=== PATIENT | male | born 1985 ===

== ENCOUNTER 2018-08-05 05:57 | Inpatient (IN) ==
[2018-08-05] MEDS ORDERED: Propofol 1000 mg/100 ml Inj 1,000 MG/100 ML BOTTLE ONE (05:59)
[2018-08-05] MEDS ORDERED: Lidocaine PF 1% Inj 30 ML Vial ONE (06:03)
[2018-08-05] MEDS ORDERED: fentaNYL Citrate Inj 100 MCG/2 ML Ampul ONE (06:16)
[2018-08-05 06:19] LABS: Baso # (Auto) 0.1 th/mm3 (0.0-0.2); Baso % (Auto) 0.5 % (0.0-2.0); Eos # (Auto) 0.2 th/mm3 (0.0-0.4); Eos % (Auto) 1.5 % (0.0-4.0); Hematocrit 35.8 % (39.0-51.0); Hemoglobin 11.8 gm/dL (13.0-17.0); Lymph # (Auto) 5.8 th/mm3 (1.0-4.8); Lymph % (Auto) 43.2 % (9.0-44.0); Mean Corpuscular HGB Conc 32.9 % (32.0-36.0); Mean Corpuscular Hemoglobin 30.4 pg (27.0-34.0); Mean Corpuscular Volume 92.4 fL (80.0-100.0); Mean Platelet Volume 7.7 fL (7.0-11.0); Mono # (Auto) 0.9 th/mm3 (0.0-0.9); Mono % (Auto) 6.5 % (0.0-8.0); Neut # (Auto) 6.4 th/mm3 (1.8-7.7); Neut % (Auto) 48.3 % (16.0-70.0); Platelet Count 416 th/mm3 (150-450); Red Blood Count 3.88 mil/mm3 (4.50-5.90); Red Cell Distribution Width 14.3 % (11.6-17.2); White Blood Count 13.3 th/mm3 (4.0-11.0)
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
[2018-08-05 06:37] LABS: Activated Partial Thrombo Time 25.6 sec (23.4-31.7); INR 1.1 Ratio; Prothrombin Time 11.2 sec (9.8-11.6)
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
[2018-08-05] MEDS ORDERED: Phenylephrine/NS 1000 MCG/10ML Syringe IV.PUSH ONE (06:48)
[2018-08-05] MEDS ORDERED: Normosol-R pH 7.4 Inj 4,000 ML IV.CONT ONE (06:48)
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
[2018-08-05 06:55] LABS: Eosinophils 2 % (0-4); Lymphocytes 43 % (9-44); Monocytes 7 % (0-8)
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
[2018-08-05 06:56] LABS: Platelet Estimate Normal (Normal); Platelet Morphology Normal (Normal)
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
[2018-08-05] MEDS ORDERED: fentaNYL Citrate Inj 250 MCG/5 ML Ampul ONE (07:09)
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
[2018-08-05 07:16] LABS: ABG Base Excess -7.1 mmol/L (-2-2); ABG PCO2 52 mmHg (38-42); ABG PO2 259 mmHG (61-120)
[2018-08-05 07:48] LABS: Baso % (Auto) 0.4 % (0.0-2.0); Eos # (Auto) 0.1 th/mm3 (0.0-0.4); Eos % (Auto) 0.6 % (0.0-4.0); Hematocrit 40.3 % (39.0-51.0); Hemoglobin 13.5 gm/dL (13.0-17.0); Lymph # (Auto) 1.8 th/mm3 (1.0-4.8); Lymph % (Auto) 18.9 % (9.0-44.0); Mean Corpuscular HGB Conc 33.4 % (32.0-36.0); Mean Corpuscular Hemoglobin 30.7 pg (27.0-34.0); Mean Platelet Volume 7.4 fL (7.0-11.0); Mono # (Auto) 0.5 th/mm3 (0.0-0.9); Neut # (Auto) 7.1 th/mm3 (1.8-7.7); Neut % (Auto) 75.1 % (16.0-70.0); Platelet Count 189 th/mm3 (150-450); Red Blood Count 4.38 mil/mm3 (4.50-5.90); Red Cell Distribution Width 14.2 % (11.6-17.2); White Blood Count 9.5 th/mm3 (4.0-11.0)
[2018-08-05] MEDS ORDERED: Thrombin Topical Soln 5,000 UNIT Vial TOPICAL ONE (07:54)
[2018-08-05 08:07] LABS: Activated Partial Thrombo Time 33.3 sec (23.4-31.7); INR 1.3 Ratio; Prothrombin Time 13.6 sec (9.8-11.6)
[2018-08-05] MEDS ORDERED: Diphtheria/Tetanus/Pertussis Vaccine Inj 0.5 ML Syringe IM ONE (08:15)
[2018-08-05] MEDS ORDERED: ceFAZolin 2 GM IV; once IV.SIG ONE (08:15)
[2018-08-05 08:28] LABS: Calcium 7.3 mg/dL (8.5-10.1); Carbon Dioxide 27.3 meq/L (21.0-32.0); Potassium 5.7 meq/L (3.5-5.1)
[2018-08-05 08:43] LABS: Calcium-Albumin Corrected 9.4 mg/dL (8.5-10.1); Total Protein 3.6 g/dL (6.4-8.2)
[2018-08-05] MEDS ORDERED: Calcium Chloride Inj 1 GM/10 ML Syringe ONE (08:45)
[2018-08-05] MEDS ORDERED: Sodium Bicarbonate 8.4% Inj 50 MEQ/50 ML Syringe ONE (08:45)
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
[2018-08-05] MEDS ORDERED: Potassium Chlor 40 mEq Premix 40 MEQ/100 ML PIGGYBACK IV.SIG PRN (09:06)
[2018-08-05] MEDS ORDERED: Potassium Chloride 25 MEQ Effervescent Tablet PO PRN (09:06)
[2018-08-05] MEDS ORDERED: Potassium Phosphate 500 MG Soluble Tablet PO PRN ×2 (09:06)
[2018-08-05] MEDS ORDERED: Sodium Phosphate Inj 30 MMOL in Sodium Chlor 0.9% Inj 250 ML IV.SIG PRN (09:06)
[2018-08-05] MEDS ORDERED: Magnesium Sulfate Inj 4 GM in Sodium Chlor 0.9% Inj 92 ML IV.SIG PRN (09:06)
[2018-08-05] MEDS ORDERED: Potassium Chlor 20 mEq Premix 20 MEQ/100 ML PIGGYBACK IV.SIG PRN ×2 (09:06)
[2018-08-05] MEDS ORDERED: Magnesium Sulfate Inj 2 GM in Sodium Chlor 0.9% Inj 96 ML IV.SIG PRN (09:06)
[2018-08-05] MEDS ORDERED: Potassium Phosphate Inj 30 MMOL in Sodium Chlor 0.9% Inj 250 ML IV.SIG PRN (09:06)
[2018-08-05] MEDS ORDERED: Magnesium Oxide 400 MG Tablet PO PRN (09:06)
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
[2018-08-05] MEDS ORDERED: Propofol 1000 mg/100 ml Inj 1,000 MG/100 ML BOTTLE IV.CONT PRN (09:13)
[2018-08-05] MEDS ORDERED: fentaNYL 10 mcg/mL Premix Drip 2,500 MCG/250 ML BAG IV.SIG PRN (09:13)
[2018-08-05] MEDS ORDERED: Propofol Inj 500 MG/50 ML Vial ONE (09:16)
[2018-08-05] MEDS: Pantoprazole Inj 40 MG Vial IV.PUSH SCH (10:00)
[2018-08-05] MEDS: fentaNYL 10 mcg/mL Premix Drip 2,500 MCG/250 ML BAG IV.SIG PRN ×2 (10:54→20:14)
[2018-08-05] MEDS: Multivitamin Inj 10 ML, Thiamine Inj 100 MG, Folic Acid Inj 1 MG in Sodium Chlor 0.9% I... IV.SIG SCH (10:55)
[2018-08-05] MEDS: Propofol 1000 mg/100 ml Inj 1,000 MG/100 ML BOTTLE IV.CONT PRN ×4 (10:55→21:04)
[2018-08-05] MEDS: Sod Chloride 0.9% Inj 1,000 ML IV.CONT SCH ×2 (10:56→17:33)
[2018-08-05 11:04] LABS: ABG Base Excess 3.6 mmol/L (-2-2); ABG PCO2 45 mmHg (38-42); ABG PO2 110 mmHg (61-120)
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
[2018-08-05 12:59] LABS: Baso % (Auto) 0.4 % (0.0-2.0); Eos % (Auto) 0.9 % (0.0-4.0); Hematocrit 44.9 % (39.0-51.0); Hemoglobin 15.6 gm/dL (13.0-17.0); Lymph # (Auto) 0.9 th/mm3 (1.0-4.8); Lymph % (Auto) 28.1 % (9.0-44.0); Mean Corpuscular HGB Conc 34.7 % (32.0-36.0); Mean Corpuscular Hemoglobin 31.3 pg (27.0-34.0); Mean Corpuscular Volume 90.3 fL (80.0-100.0); Mean Platelet Volume 7.8 fL (7.0-11.0); Mono # (Auto) 0.4 th/mm3 (0.0-0.9); Mono % (Auto) 13.8 % (0.0-8.0); Neut # (Auto) 1.8 th/mm3 (1.8-7.7); Neut % (Auto) 56.8 % (16.0-70.0); Platelet Count 182 th/mm3 (150-450); Red Blood Count 4.98 mil/mm3 (4.50-5.90); Red Cell Distribution Width 14.2 % (11.6-17.2); White Blood Count 3.2 th/mm3 (4.0-11.0)
[2018-08-05 13:10] LABS: Activated Partial Thrombo Time 27.8 sec (23.4-31.7); INR 1.1 Ratio; Prothrombin Time 11.5 sec (9.8-11.6)
[2018-08-05] MEDS: Oral Hygiene Kit OROPHARYNG SCH ×2 (13:12→17:33)
[2018-08-05 13:34] LABS: Albumin 2.7 g/dL (3.4-5.0); Calcium 7.1 mg/dL (8.5-10.1); Carbon Dioxide 31.3 meq/L (21.0-32.0); Potassium 3.6 meq/L (3.5-5.1); Total Protein 5.1 g/dL (6.4-8.2)
[2018-08-05] MEDS: ceFAZolin 2 GM Premix Inj 2 GM/50 ML PIGGYBACK IV.SIG SCH (14:28)
[2018-08-05] MEDS ORDERED: Sod Chloride 0.9% Inj 1,000 ML IV.CONT ONE (15:00)
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
[2018-08-05] MEDS: Sod Chloride 0.9% Inj 1,000 ML IV.SIG SCH ×2 (17:30→18:46)
[2018-08-05] MEDS: Piperacil/Tazo 3.375 GM Premix 50 ML IV.SIG SCH (17:34)
[2018-08-05 18:00] LABS: Hematocrit 46.9 % (39.0-51.0); Hemoglobin 16.8 gm/dL (13.0-17.0)
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
[2018-08-05] MEDS ORDERED: RASS Change Order OTHER ONE (19:00)
[2018-08-05] MEDS ORDERED: Sod Chloride 0.9% Inj 1,000 ML IV.SIG SCH (20:00)
[2018-08-05] MEDS ORDERED: Albumin Human 5% Inj 500 ML IV.SIG ONE (23:00)
[2018-08-05 23:19] LABS: Hemoglobin 15.6 gm/dL (13.0-17.0)
[2018-08-05] MEDS: Sodium Chloride 0.9% 2 ML Flush BID IV.FLUSH SCH (23:58)
[2018-08-06] MEDS: ceFAZolin 2 GM Premix Inj 2 GM/50 ML PIGGYBACK IV.SIG SCH ×2 (00:25→06:34)
[2018-08-06] MEDS: Piperacil/Tazo 3.375 GM Premix 50 ML IV.SIG SCH ×3 (00:25→15:25)
[2018-08-06] MEDS: Oral Hygiene Kit OROPHARYNG SCH ×4 (00:25→15:26)
[2018-08-06] MEDS: Chlorhexidine 0.12% Oral Kit 15 ML UDC OROPHARYNG SCH ×3 (00:26→20:14)
[2018-08-06] MEDS: Sod Chloride 0.9% Inj 1,000 ML IV.CONT SCH ×5 (00:27→18:19)
[2018-08-06] MEDS: Propofol 1000 mg/100 ml Inj 1,000 MG/100 ML BOTTLE IV.CONT PRN (01:48)
[2018-08-06 02:41] LABS: ABG Base Excess -2.8 mmol/L (-2-2); ABG PCO2 50 mmHg (38-42); ABG PO2 93 mmHg (61-120)
[2018-08-06] MEDS ORDERED: Albumin Human 5% Inj 500 ML IV.SIG ONE ×2 (03:00→04:00)
[2018-08-06 03:44] LABS: Baso % (Auto) 0.2 % (0.0-2.0); Eos # (Auto) 0.1 th/mm3 (0.0-0.4); Eos % (Auto) 0.8 % (0.0-4.0); Hematocrit 37.6 % (39.0-51.0); Hemoglobin 13.3 gm/dL (13.0-17.0); Lymph # (Auto) 1.2 th/mm3 (1.0-4.8); Lymph % (Auto) 13.9 % (9.0-44.0); Mean Corpuscular HGB Conc 35.3 % (32.0-36.0); Mean Corpuscular Hemoglobin 31.3 pg (27.0-34.0); Mean Corpuscular Volume 88.7 fL (80.0-100.0); Mean Platelet Volume 7.8 fL (7.0-11.0); Mono # (Auto) 1.1 th/mm3 (0.0-0.9); Mono % (Auto) 12.8 % (0.0-8.0); Neut # (Auto) 6.4 th/mm3 (1.8-7.7); Neut % (Auto) 72.3 % (16.0-70.0); Platelet Count 161 th/mm3 (150-450); Red Blood Count 4.23 mil/mm3 (4.50-5.90); Red Cell Distribution Width 14.7 % (11.6-17.2); White Blood Count 8.8 th/mm3 (4.0-11.0)
[2018-08-06] MEDS ORDERED: Chlorhexidine Gluconate 2% 1 Pack (2 Cloths) TOPICAL PRN (04:00)
[2018-08-06 04:10] LABS: Albumin 2.7 g/dL (3.4-5.0); Calcium 6.1 mg/dL (8.5-10.1); Carbon Dioxide 25.7 meq/L (21.0-32.0); Potassium 4.8 meq/L (3.5-5.1); Total Protein 4.5 g/dL (6.4-8.2)
--- NOTE | 2018-08-06 04:28 | XR ---
EXAM DATE: 08/06/2018 3:46 AM EST AGE/SEX: 89 years / Male INDICATIONS: Shortness of breath. CLINICAL DATA: This is the patient's subsequent encounter. Patient reports that signs and symptoms h ave been present for 2 days and indicates a pain score of Nonresponsive. MEDICAL/SURGICAL HISTORY: Non-responsive. . Bilateral chest tubes COMPARISON: [facility] – [place], CHEST 1V SINGLE AP, 08/05/2018. . FINDINGS: A single AP view of the chest demonstrates some improved aeration of both lungs. The remaining exam i s unchanged. Endotracheal tube tip is 4 cm from the erin. Nasogastric tube and bilateral thoracosto my tubes observed. A catheter overlies the left chest possibly relating to a subclavian central venou s access. Heart is normal in size. No effusions. CONCLUSION: Some improvement in the bilateral infiltrates. Electronically signed by: Harpreet Barros MD 08/06/2018 4:27 AM EST
[2018-08-06] MEDS ORDERED: Sod Chloride 0.9% Inj 1,000 ML IV.SIG SCH (04:30)
[2018-08-06 04:44] LABS: Eosinophils 1 % (0-4); Lymphocytes 13 % (9-44); Metamyelocytes 5 % (0-1); Monocytes 3 % (0-8); Platelet Estimate Normal (Normal); Platelet Morphology Normal (Normal); RBC Morphology Normal (Normal)
[2018-08-06] MEDS: fentaNYL 10 mcg/mL Premix Drip 2,500 MCG/250 ML BAG IV.SIG PRN ×2 (05:09→15:25)
[2018-08-06] MEDS: Chlorhexidine Gluconate 2% 1 Pack (2 Cloths) TOPICAL SCH (05:11)
[2018-08-06 06:33] LABS: ABG Base Excess -2.2 mmol/L (-2-2); ABG PCO2 42 mmHg (38-42); ABG PO2 86 mmHg (61-120)
[2018-08-06] MEDS: Midazolam 50 MG/50 ML Inj 50 MG/50 ML BAG IV.CONT PRN ×3 (06:35→21:27)
[2018-08-06] MEDS ORDERED: Diatrizoate Meglum/Diatrizoate Sod Liq 120 ML Bottle (for RAD diag) NG/OG ONE (08:00)
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
--- NOTE | 2018-08-06 08:42 | CT ---
EXAM DATE: 08/06/2018 8:33 AM EST AGE/SEX: 89 years / Male INDICATIONS: Trauma CLINICAL DATA: This is the patient's subsequent encounter. Patient reports that signs and symptoms h ave been present for 1 day and indicates a pain score of Nonresponsive. MEDICAL/SURGICAL HISTORY: Non-responsive. Non-responsive. RADIATION DOSE: 8.12 CTDI (mGy) COMPARISON: [facility] [place], CHEST 1V SINGLE AP, 08/06/2018. [facility] [place], SWALLOW W GASTROGRAFIN, 08/06/2018. [facility] [place], CT CHEST W CONTRAST, 08/05/2018. . TECHNIQUE: Multiple contiguous axial images were obtained through the chest during bolus infusion of 70ML ml Omnipaque 350 (iohexol) nonionic water-soluble contrast as a single exam dose. Images wer e obtained in suspended respiration using multiple row detector helical technique. Using automated e xposure control and adjustment of the mA and/or kV according to patient size, radiation dose was kept as low as reasonably achievable to obtain optimal diagnostic quality images. DICOM format image chente a is available electronically for review and comparison. FINDINGS: Endotracheal tube, and NG tube are noted, the NG tube tip terminates in the body the stomach. There a re bilateral chest tubes present. There are bilateral hydropneumothoraces again seen, the air compone nt decreased bilaterally since the previous study. Fluid component is decreased on the right and incr eased on the left. There is consolidation of both lower lobes with air bronchogram formation as well as lingular consolidation adjacent to the chest tube. There is some high attenuation fluid bilaterall y within the effusions characteristic of hemorrhage. The areas of high density and increased from the previous study. There is a laceration seen through the liver parenchyma as noted previously. A small amount of air is present at this level. The aorta and great vessels are intact. A left subclavian li ne is present and the tip terminates in the left brachiocephalic vein. There is contrast from Gastrog rafin swallow seen within the stomach and the esophagus. There is contrast in the enteric tube. Revie w of bone windows demonstrate right fifth rib fracture again seen. CONCLUSION: 1. Bilateral hydropneumothoraces, with increased fluid on the left, decreased fluid on the right, an d bilateral decreased air component. 2. Liver laceration. 3. Scattered areas of subcutaneous air are again noted. 4. Contrast seen within the NG tube, stomach and esophagus. An obvious extraluminal contrast collect ion is not seen at this time. 5. There is bilateral pulmonary consolidation. Electronically signed by: Woody Bernal MD 08/06/2018 8:41 AM EST
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
[2018-08-06] MEDS: Sodium Chloride 0.9% 2 ML Flush BID IV.FLUSH SCH ×2 (09:33→20:14)
[2018-08-06] MEDS: Multivitamin Inj 10 ML, Thiamine Inj 100 MG, Folic Acid Inj 1 MG in Sodium Chlor 0.9% I... IV.SIG SCH (09:33)
[2018-08-06] MEDS: Pantoprazole Inj 40 MG Vial IV.PUSH SCH (09:34)
[2018-08-07] MEDS: Piperacil/Tazo 3.375 GM Premix 50 ML IV.SIG SCH ×4 (01:11→23:18)
[2018-08-07] MEDS: Oral Hygiene Kit OROPHARYNG SCH ×4 (01:11→15:54)
[2018-08-07] MEDS: fentaNYL 10 mcg/mL Premix Drip 2,500 MCG/250 ML BAG IV.SIG PRN ×3 (01:31→23:17)
[2018-08-07 04:19] LABS: Baso # (Auto) 0.1 th/mm3 (0.0-0.2); Baso % (Auto) 0.5 % (0.0-2.0); Eos # (Auto) 0.2 th/mm3 (0.0-0.4); Eos % (Auto) 1.1 % (0.0-4.0); Hematocrit 40.1 % (39.0-51.0); Hemoglobin 13.6 gm/dL (13.0-17.0); Lymph # (Auto) 1.2 th/mm3 (1.0-4.8); Lymph % (Auto) 8.1 % (9.0-44.0); Mean Corpuscular Hemoglobin 30.7 pg (27.0-34.0); Mean Corpuscular Volume 90.2 fL (80.0-100.0); Mean Platelet Volume 7.5 fL (7.0-11.0); Mono # (Auto) 1.4 th/mm3 (0.0-0.9); Mono % (Auto) 9.6 % (0.0-8.0); Neut # (Auto) 11.8 th/mm3 (1.8-7.7); Neut % (Auto) 80.7 % (16.0-70.0); Platelet Count 182 th/mm3 (150-450); Red Blood Count 4.45 mil/mm3 (4.50-5.90); Red Cell Distribution Width 14.7 % (11.6-17.2); White Blood Count 14.6 th/mm3 (4.0-11.0)
[2018-08-07] MEDS: Sod Chloride 0.9% Inj 1,000 ML IV.CONT SCH ×2 (05:02→15:54)
[2018-08-07] MEDS: Chlorhexidine Gluconate 2% 1 Pack (2 Cloths) TOPICAL SCH (05:02)
[2018-08-07 05:04] LABS: Albumin 2.2 g/dL (3.4-5.0); Calcium 7.3 mg/dL (8.5-10.1); Carbon Dioxide 24.4 meq/L (21.0-32.0); Total Protein 4.9 g/dL (6.4-8.2)
[2018-08-07] MEDS: Midazolam 50 MG/50 ML Inj 50 MG/50 ML BAG IV.CONT PRN ×3 (05:25→18:54)
[2018-08-07 05:56] LABS: ABG PCO2 38 mmHg (38-42); ABG PO2 104 mmHg (61-120)
--- NOTE | 2018-08-07 06:47 | XR ---
EXAM DATE: 08/07/2018 6:42 AM EST AGE/SEX: 89 years / Male INDICATIONS: Respiratory distress. CLINICAL DATA: This is the patient's subsequent encounter. Patient reports that signs and symptoms h ave been present for 2 days and indicates a pain score of Nonresponsive. MEDICAL/SURGICAL HISTORY: . Unobtainable. Chest tube, left. Chest tube, right. COMPARISON: [facility] [place] 1V SINGLE AP, 08/06/2018. . FINDINGS: Single AP view of the chest. Endotracheal tube, nasogastric tube, bilateral chest tubes, and left sub clavian central venous catheter remain in place. Bilateral pleural effusions with hazy opacity bilate rally. Slightly increased on the right. No change in the left. Left lower lobe atelectasis versus con solidation also again seen. No evidence of pneumothorax. CONCLUSION: Slight increase in right pleural effusion. No other significant interval change. Electronically signed by: Rajesh Verdugo MD 08/07/2018 6:46 AM EST
[2018-08-07] MEDS: Chlorhexidine 0.12% Oral Kit 15 ML UDC OROPHARYNG SCH ×2 (07:28→20:47)
[2018-08-07] MEDS: Multivitamin Inj 10 ML, Thiamine Inj 100 MG, Folic Acid Inj 1 MG in Sodium Chlor 0.9% I... IV.SIG SCH (08:02)
[2018-08-07] MEDS: Pantoprazole Inj 40 MG Vial IV.PUSH SCH (08:02)
[2018-08-07] MEDS: Sodium Chloride 0.9% 2 ML Flush BID IV.FLUSH SCH ×2 (08:02→20:47)
[2018-08-07 08:27] LABS: Dohle Bodies Present; Lymphocytes 4 % (9-44); Metamyelocytes 3 % (0-1); Monocytes 4 % (0-8)
[2018-08-07 08:28] LABS: Platelet Estimate Normal (Normal); Platelet Morphology Normal (Normal); Toxic Granulation 1+; Toxic Vacuolation Present
[2018-08-07] MEDS ORDERED: fentaNYL Citrate Inj 100 MCG/2 ML Ampul ONE (13:06)
[2018-08-07] MEDS ORDERED: Famotidine PF Inj 20 MG/2 ML Vial ONE (13:06)
--- NOTE | 2018-08-07 18:01 | XR ---
EXAM DATE: 08/07/2018 5:54 PM EST AGE/SEX: 89 years / Male INDICATIONS: Evaluate ET tube placement. CLINICAL DATA: This is the patient's subsequent encounter. Patient reports that signs and symptoms h ave been present for 2 days and indicates a pain score of Nonresponsive. MEDICAL/SURGICAL HISTORY: Non-responsive. . Chest tube, left. Chest tube, right. [place] [facility] [place]. . FINDINGS: A single AP view of the chest has been performed. Endotracheal tube remains in place with distal tip above the erin. Partially imaged nasoenteric tube, bilateral chest tubes, and left subclavian centr al venous catheter remain in place. Increased hazy opacification of the left hemithorax. Persistent h azy opacification of the right lung base. The cardiomediastinal contours are unremarkable with dense opacification of the cardiac silhouette. Osseous structures are intact. CONCLUSION: 1. Endotracheal tube in stable position above the erin. 2. Nasoenteric tube, bilateral chest tubes, and left subclavian central venous catheter remain in pl [place]. 3. Increased hazy opacification of the left hemithorax, and persistent hazy opacification of the rig ht lung base. 4. Stable dense opacification of the cardiac silhouette. Electronically signed by: Theresa Dalal MD 08/07/2018 6:00 PM EST
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
[2018-08-07] MEDS: Enoxaparin Inj 30 MG/0.3 ML Syringe SQ SCH (20:45)
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
[2018-08-08] MEDS: Oral Hygiene Kit OROPHARYNG SCH ×4 (00:51→15:32)
[2018-08-08] MEDS: Chlorhexidine Gluconate 2% 1 Pack (2 Cloths) TOPICAL SCH (03:03)
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
[2018-08-08 04:21] LABS: Baso % (Auto) 0.3 % (0.0-2.0); Eos # (Auto) 0.1 th/mm3 (0.0-0.4); Eos % (Auto) 0.7 % (0.0-4.0); Hematocrit 35.6 % (39.0-51.0); Hemoglobin 12.3 gm/dL (13.0-17.0); Lymph # (Auto) 0.7 th/mm3 (1.0-4.8); Lymph % (Auto) 3.7 % (9.0-44.0); Mean Corpuscular HGB Conc 34.6 % (32.0-36.0); Mean Corpuscular Hemoglobin 30.7 pg (27.0-34.0); Mean Corpuscular Volume 88.8 fL (80.0-100.0); Mean Platelet Volume 7.6 fL (7.0-11.0); Mono # (Auto) 1.2 th/mm3 (0.0-0.9); Mono % (Auto) 6.3 % (0.0-8.0); Neut # (Auto) 16.7 th/mm3 (1.8-7.7); Platelet Count 206 th/mm3 (150-450); Red Blood Count 4.01 mil/mm3 (4.50-5.90); Red Cell Distribution Width 14.7 % (11.6-17.2); White Blood Count 18.8 th/mm3 (4.0-11.0)
[2018-08-08 04:39] LABS: Albumin 1.8 g/dL (3.4-5.0); Calcium 7.4 mg/dL (8.5-10.1); Carbon Dioxide 23.4 meq/L (21.0-32.0); Potassium 3.5 meq/L (3.5-5.1); Total Protein 4.9 g/dL (6.4-8.2)
[2018-08-08 06:03] LABS: ABG Base Excess -0.6 mmol/L (-2-2); ABG PCO2 46 mmHg (38-42); ABG PO2 66 mmHg (61-120)
[2018-08-08] MEDS: Chlorhexidine 0.12% Oral Kit 15 ML UDC OROPHARYNG SCH ×2 (08:02→20:53)
[2018-08-08] MEDS: Pantoprazole Inj 40 MG Vial IV.PUSH SCH (08:03)
[2018-08-08] MEDS: Enoxaparin Inj 30 MG/0.3 ML Syringe SQ SCH ×2 (08:03→20:53)
[2018-08-08] MEDS: Piperacil/Tazo 3.375 GM Premix 50 ML IV.SIG SCH (08:03)
[2018-08-08] MEDS: Sodium Chloride 0.9% 2 ML Flush BID IV.FLUSH SCH ×2 (10:16→20:53)
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
[2018-08-08] MEDS: Propofol 1000 mg/100 ml Inj 1,000 MG/100 ML BOTTLE IV.CONT PRN (15:38)
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
[2018-08-08] MEDS: fentaNYL 10 mcg/mL Premix Drip 2,500 MCG/250 ML BAG IV.SIG PRN (21:22)
[2018-08-09] MEDS: Oral Hygiene Kit OROPHARYNG SCH ×5 (01:12→23:51)
[2018-08-09] MEDS: Propofol 1000 mg/100 ml Inj 1,000 MG/100 ML BOTTLE IV.CONT PRN ×5 (03:39→23:50)
[2018-08-09] MEDS: Chlorhexidine Gluconate 2% 1 Pack (2 Cloths) TOPICAL SCH (03:41)
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
[2018-08-09 04:56] LABS: Baso # (Auto) 0.1 th/mm3 (0.0-0.2); Baso % (Auto) 0.3 % (0.0-2.0); Eos # (Auto) 0.1 th/mm3 (0.0-0.4); Eos % (Auto) 0.6 % (0.0-4.0); Hematocrit 34.7 % (39.0-51.0); Hemoglobin 11.6 gm/dL (13.0-17.0); Lymph % (Auto) 4.7 % (9.0-44.0); Mean Corpuscular HGB Conc 33.5 % (32.0-36.0); Mean Corpuscular Hemoglobin 30.5 pg (27.0-34.0); Mean Corpuscular Volume 91.1 fL (80.0-100.0); Mean Platelet Volume 7.3 fL (7.0-11.0); Mono # (Auto) 1.6 th/mm3 (0.0-0.9); Mono % (Auto) 7.7 % (0.0-8.0); Neut % (Auto) 86.7 % (16.0-70.0); Platelet Count 218 th/mm3 (150-450); Red Cell Distribution Width 14.9 % (11.6-17.2); White Blood Count 20.8 th/mm3 (4.0-11.0)
[2018-08-09 05:22] LABS: Anion Gap 9 meq/L (5-15); Blood Urea Nitrogen 17 mg/dL (7-18); Calcium 7.9 mg/dL (8.5-10.1); Carbon Dioxide 26.5 meq/L (21.0-32.0); Chloride 112 meq/L (98-107); Glomerular Filtration Rate Greater Than 89 mL/min (>89); Glucose,Random 96 mg/dL (74-106); Potassium 3.5 meq/L (3.5-5.1); Sodium 147 meq/L (136-145)
[2018-08-09 05:47] LABS: ABG Base Excess 2.4 mmol/L (-2-2); ABG PCO2 46 mmHg (38-42); ABG PO2 128 mmHg (61-120)
[2018-08-09 08:18] LABS: Eosinophils 2 % (0-4); Lymphocytes 3 % (9-44); Monocytes 8 % (0-8); Plasma Cells 1 % (0-0)
[2018-08-09 08:19] LABS: Dimorphic RBC Present; Dohle Bodies Present; Platelet Estimate Normal (Normal); Platelet Morphology Normal (Normal); Toxic Granulation 1+
[2018-08-09] MEDS: Pantoprazole Inj 40 MG Vial IV.PUSH SCH (08:46)
[2018-08-09] MEDS: Sodium Chloride 0.9% 2 ML Flush BID IV.FLUSH SCH ×2 (08:47→20:00)
[2018-08-09] MEDS: Enoxaparin Inj 30 MG/0.3 ML Syringe SQ SCH ×2 (08:47→20:00)
[2018-08-09] MEDS: Chlorhexidine 0.12% Oral Kit 15 ML UDC OROPHARYNG SCH ×2 (08:47→19:52)
[2018-08-09] MEDS: Sod Chloride 0.9% Inj 1,000 ML IV.CONT SCH (09:30)
[2018-08-09] MEDS: fentaNYL 10 mcg/mL Premix Drip 2,500 MCG/250 ML BAG IV.SIG PRN (14:55)
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
[2018-08-09] MEDS ORDERED: ceFAZolin 1 GM Premix Inj 2 GM/100 ML PIGGYBACK IV.SIG ONE (17:10)
[2018-08-09] MEDS ORDERED: Normosol-R pH 7.4 Inj 1,000 ML IV.CONT ONE (17:11)
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
--- NOTE | 2018-08-09 19:38 | XR ---
EXAM DATE: 08/09/2018 7:34 PM EST AGE/SEX: 89 years / Male INDICATIONS: Post thoracoscopy. CLINICAL DATA: This is the patient's initial encounter. Patient reports that signs and symptoms have been present for 2 days and indicates a pain score of Nonresponsive. MEDICAL/SURGICAL HISTORY: Non-responsive. Non-responsive. COMPARISON: [facility] – [place], CHEST 1V SINGLE AP, 08/09/2018. . FINDINGS: A single AP view of the chest demonstrates bibasilar densities. Small lateral left pneumothorax measu res 6 mm of pleural separation. Bilateral chest tubes. Heart normal in size. Endotracheal tube and na sogastric tube unchanged. Tiny right apical pneumothorax. The cardiomediastinal contours are unremarkable. Osseous structures are intact. CONCLUSION: 1. Small bilateral pneumothoraces slightly larger on the left. 2. Bibasilar densities. Electronically signed by: Nilson Dunbar MD 08/09/2018 7:37 PM EST
--- NOTE | 2018-08-09 21:19 | MP ---
cc: Ahsan Fleming MD DATE OF OPERATION: 08/09/2018 PREOPERATIVE DIAGNOSIS: Respiratory failure, retained left hemothorax. POSTOPERATIVE DIAGNOSIS: Respiratory failure, retained left hemothorax. PROCEDURE PERFORMED: Left thoracoscopy, evacuation of hemothorax. SURGEON: Ahsan Fleming MD. ANESTHESIA: General. ESTIMATED BLOOD LOSS: 10 mL. INDICATIONS FOR PROCEDURE: The patient was prepped and draped in the usual fashion in the left decubitus position. The old chest tube is removed. The 6th intercostal space was chosen in mid axillary line. Small incisions made with a 15 blade, deepened down with cautery and then over the 7th rib, the soft trocar is inserted. Lung is deflated and then a camera was inserted. The chest is visualized. The lung appears to be clean and well aerated. The posterior sulcus is filled with old clotted blood and over the diaphragm, this is even thicker, sort of gelatinous, yellowish brown material. The second counter incision was made in the fifth intercostal space posterior axillary line and suction device inserted through this. Old semi-liquid material was suctioned off and then the rest of it is peeled off from the pleura from parietal and visceral pleura, as well over the surface of the diaphragm and removed with forceps and various other instruments that would fit. Once everything is clean, the area was irrigated with saline. At 36-Irish chest tube was placed in the posterior sulcus, sutured with 2-0 silk. The remaining incision closed with 2-0 Vicryl and 4-0 Monocryl. Chest x-ray obtained. The patient taken out of the operating room in stable condition. MD JESSICA Jennings/em , 07:59 PM , 08:05 PM
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
[2018-08-10] MEDS: Chlorhexidine Gluconate 2% 1 Pack (2 Cloths) TOPICAL SCH (04:24)
[2018-08-10] MEDS: Oral Hygiene Kit OROPHARYNG SCH ×3 (04:25→17:29)
[2018-08-10 04:28] LABS: Baso # (Auto) 0.1 th/mm3 (0.0-0.2); Baso % (Auto) 0.5 % (0.0-2.0); Eos # (Auto) 0.2 th/mm3 (0.0-0.4); Eos % (Auto) 1.5 % (0.0-4.0); Hematocrit 35.1 % (39.0-51.0); Hemoglobin 11.5 gm/dL (13.0-17.0); Mean Corpuscular HGB Conc 32.7 % (32.0-36.0); Mean Corpuscular Hemoglobin 29.9 pg (27.0-34.0); Mean Corpuscular Volume 91.5 fL (80.0-100.0); Mean Platelet Volume 7.3 fL (7.0-11.0); Mono # (Auto) 1.7 th/mm3 (0.0-0.9); Mono % (Auto) 10.3 % (0.0-8.0); Neut # (Auto) 13.1 th/mm3 (1.8-7.7); Neut % (Auto) 81.7 % (16.0-70.0); Platelet Count 244 th/mm3 (150-450); Red Blood Count 3.84 mil/mm3 (4.50-5.90); Red Cell Distribution Width 15.1 % (11.6-17.2)
[2018-08-10 05:08] LABS: Anion Gap 10 meq/L (5-15); Blood Urea Nitrogen 15 mg/dL (7-18); Calcium 7.7 mg/dL (8.5-10.1); Carbon Dioxide 28.3 meq/L (21.0-32.0); Chloride 112 meq/L (98-107); Glomerular Filtration Rate Greater Than 89 mL/min (>89); Glucose,Random 89 mg/dL (74-106); Potassium 3.2 meq/L (3.5-5.1); Sodium 150 meq/L (136-145)
[2018-08-10] MEDS: fentaNYL 10 mcg/mL Premix Drip 2,500 MCG/250 ML BAG IV.SIG PRN ×2 (05:31→17:35)
[2018-08-10] MEDS: Propofol 1000 mg/100 ml Inj 1,000 MG/100 ML BOTTLE IV.CONT PRN ×4 (05:32→19:46)
[2018-08-10 05:34] LABS: ABG Base Excess 1.9 mmol/L (-2-2); ABG PCO2 39 mmHg (38-42); ABG PO2 78 mmHg (61-120)
[2018-08-10 07:06] LABS: Lymphocytes 2 % (9-44); Metamyelocytes 1 % (0-1); Monocytes 10 % (0-8)
[2018-08-10 07:07] LABS: Platelet Estimate Normal (Normal); Platelet Morphology Normal (Normal); RBC Morphology Normal (Normal)
[2018-08-10] MEDS: Sod Chloride 0.9% Inj 1,000 ML IV.CONT SCH (07:35)
[2018-08-10] MEDS: Potassium Chlor 40 mEq Premix 40 MEQ/100 ML PIGGYBACK IV.SIG PRN ×2 (07:46→17:28)
[2018-08-10] MEDS: Pantoprazole Inj 40 MG Vial IV.PUSH SCH (08:07)
[2018-08-10] MEDS: Enoxaparin Inj 30 MG/0.3 ML Syringe SQ SCH ×2 (08:08→20:56)
[2018-08-10] MEDS: Sodium Chloride 0.9% 2 ML Flush BID IV.FLUSH SCH ×2 (08:08→20:56)
[2018-08-10] MEDS: Chlorhexidine 0.12% Oral Kit 15 ML UDC OROPHARYNG SCH ×2 (08:08→20:56)
[2018-08-10] MEDS ORDERED: Dexmedetomidine Inj 200 MCG in Sodium Chlor 0.9% Inj 48 ML IV.CONT PRN (09:39)
[2018-08-10] MEDS ORDERED: Propofol 1000 mg/100 ml Inj 1,000 MG/100 ML BOTTLE ONE (10:00)
[2018-08-10] MEDS ORDERED: Etomidate Inj 20 MG/10 ML Ampul IV.PUSH ONE ×2 (10:29→11:22)
[2018-08-10] MEDS: Metoprolol Inj 5 MG/5 ML Vial IV.PUSH SCH ×3 (11:22→21:11)
--- NOTE | 2018-08-10 11:26 | P.PCN ---
Date of procedure: 08/10/18 Pre-op diagnosis: Acute hypoxemic respiratory failure Post-op diagnosis: same Procedure: Endotracheal intubation Rapid Sequence Intubation was conducted. The patient received 20 mg etomidate IV , 10 mg of Versed IV, rocuronium 50 mg IV. Cricoid pressure was maintained from time induction agent was given to time of cuff balloon inflation. Moderate amount of secretions were pooling in the oropharynx, which was suctioned out. Using a direct laryngoscope MAC 4 blade a grade 2 view was obtained, there was significant amount of edema of the glottic opening at least partially obscuring the airway opening. I was not able to visualize the vocal cords because of this. An 8 0 ET tube was initially attempted which slipped into the esophagus. This was pulled out and patient was intubated with a 7.0 ET tube. The stylet was removed and cuff balloon was inflated. Appropriate endotracheal tube position was confirmed by direct visualization of vocal cord passage, fogging of the tube, CO2 colometric indicator and symmetric breath sounds. The tube was secured at 24 cm at the lips. Postintubation chest x-ray is pending at this time Edema of glottic opening causing difficult airway. Trauma service to start IV Decadron Anesthesia: YESI Surgeon: Logan Apodaca Estimated blood loss (mL): 0 Pathology: other Condition: critical Disposition: ICU (sputum culture)
--- NOTE | 2018-08-10 11:47 | XR ---
EXAM DATE: 08/10/2018 11:41 AM EST AGE/SEX: 89 years / Male INDICATIONS: Patient reintubated. CLINICAL DATA: This is the patient's subsequent encounter. Patient reports that signs and symptoms h ave been present for 3 days and indicates a pain score of Nonresponsive. MEDICAL/SURGICAL HISTORY: Non-responsive. Non-responsive. [place] [facility] [place]. . FINDINGS: There is a persistent left-sided pneumothorax measuring 1 cm laterally. Bilateral chest tubes remain unchanged in positions. The endotracheal tube has its tip 3 cm above the erin. A nasogastric tube h as tip below diaphragm. Hazy opacities are again noted bilaterally and are stable. The heart is stabl e. CONCLUSION: 1. Stable hazy opacities bilaterally. 2. Persistent left-sided pneumothorax measuring 1 cm laterally 3. Multiple tubes are stable. Electronically signed by: Landon Bennett MD 08/10/2018 11:46 AM EST
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
[2018-08-11] MEDS: Propofol 1000 mg/100 ml Inj 1,000 MG/100 ML BOTTLE IV.CONT PRN ×6 (00:15→22:09)
[2018-08-11] MEDS: Oral Hygiene Kit OROPHARYNG SCH ×4 (00:16→17:46)
[2018-08-11] MEDS: Potassium Chlor 40 mEq Premix 40 MEQ/100 ML PIGGYBACK IV.SIG PRN ×2 (02:00→05:13)
[2018-08-11] MEDS: Metoprolol Inj 5 MG/5 ML Vial IV.PUSH SCH ×4 (04:32→22:09)
[2018-08-11] MEDS: fentaNYL 10 mcg/mL Premix Drip 2,500 MCG/250 ML BAG IV.SIG PRN ×2 (05:12→17:51)
[2018-08-11 05:25] LABS: ABG Base Excess 3.6 mmol/L (-2-2); ABG PCO2 39 mmHg (38-42); ABG PO2 62 mmHg (61-120)
[2018-08-11 05:49] LABS: Baso % (Auto) 0.3 % (0.0-2.0); Eos % (Auto) 0.1 % (0.0-4.0); Hematocrit 32.4 % (39.0-51.0); Hemoglobin 11.1 gm/dL (13.0-17.0); Lymph % (Auto) 6.1 % (9.0-44.0); Mean Corpuscular HGB Conc 34.2 % (32.0-36.0); Mean Corpuscular Hemoglobin 30.9 pg (27.0-34.0); Mean Corpuscular Volume 90.3 fL (80.0-100.0); Mean Platelet Volume 7.9 fL (7.0-11.0); Mono # (Auto) 1.1 th/mm3 (0.0-0.9); Mono % (Auto) 6.5 % (0.0-8.0); Platelet Count 303 th/mm3 (150-450); Red Blood Count 3.59 mil/mm3 (4.50-5.90); Red Cell Distribution Width 14.8 % (11.6-17.2); White Blood Count 17.2 th/mm3 (4.0-11.0)
[2018-08-11 06:25] LABS: Anion Gap 5 meq/L (5-15); Blood Urea Nitrogen 20 mg/dL (7-18); Calcium 7.8 mg/dL (8.5-10.1); Carbon Dioxide 28.1 meq/L (21.0-32.0); Chloride 116 meq/L (98-107); Glomerular Filtration Rate Greater Than 89 mL/min (>89); Glucose,Random 146 mg/dL (74-106); Potassium 4.2 meq/L (3.5-5.1); Sodium 149 meq/L (136-145)
[2018-08-11] MEDS: Sod Chloride 0.9% Inj 1,000 ML IV.CONT SCH (07:10)
[2018-08-11] MEDS: Enoxaparin Inj 30 MG/0.3 ML Syringe SQ SCH ×2 (08:35→21:32)
[2018-08-11] MEDS: Chlorhexidine 0.12% Oral Kit 15 ML UDC OROPHARYNG SCH ×2 (08:36→21:32)
[2018-08-11] MEDS: Pantoprazole Inj 40 MG Vial IV.PUSH SCH (08:36)
[2018-08-11] MEDS: Sodium Chloride 0.9% 2 ML Flush BID IV.FLUSH SCH ×2 (08:37→21:32)
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
[2018-08-11] MEDS: QUEtiapine 25 MG Tablet PO SCH ×2 (12:34→17:46)
[2018-08-11] MEDS ORDERED: QUEtiapine 100 MG Tablet PO SCH (21:00)
[2018-08-12] MEDS: Oral Hygiene Kit OROPHARYNG SCH ×5 (00:20→23:55)
[2018-08-12] MEDS: Propofol 1000 mg/100 ml Inj 1,000 MG/100 ML BOTTLE IV.CONT PRN ×5 (01:59→19:41)
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
[2018-08-12 04:39] LABS: Baso # (Auto) 0.1 th/mm3 (0.0-0.2); Baso % (Auto) 0.3 % (0.0-2.0); Hematocrit 32.1 % (39.0-51.0); Hemoglobin 10.6 gm/dL (13.0-17.0); Lymph # (Auto) 1.1 th/mm3 (1.0-4.8); Mean Corpuscular HGB Conc 32.9 % (32.0-36.0); Mean Corpuscular Hemoglobin 30.2 pg (27.0-34.0); Mean Corpuscular Volume 91.8 fL (80.0-100.0); Mono # (Auto) 1.2 th/mm3 (0.0-0.9); Mono % (Auto) 5.6 % (0.0-8.0); Neut # (Auto) 19.3 th/mm3 (1.8-7.7); Neut % (Auto) 89.1 % (16.0-70.0); Platelet Count 384 th/mm3 (150-450); Red Cell Distribution Width 14.7 % (11.6-17.2); White Blood Count 21.6 th/mm3 (4.0-11.0)
[2018-08-12 05:02] LABS: Anion Gap 6 meq/L (5-15); Blood Urea Nitrogen 26 mg/dL (7-18); Calcium 7.9 mg/dL (8.5-10.1); Carbon Dioxide 28.8 meq/L (21.0-32.0); Chloride 115 meq/L (98-107); Glomerular Filtration Rate Greater Than 89 mL/min (>89); Glucose,Random 161 mg/dL (74-106); Sodium 150 meq/L (136-145)
[2018-08-12] MEDS: fentaNYL 10 mcg/mL Premix Drip 2,500 MCG/250 ML BAG IV.SIG PRN ×2 (05:18→16:36)
[2018-08-12] MEDS: Metoprolol Inj 5 MG/5 ML Vial IV.PUSH SCH ×4 (05:18→21:13)
[2018-08-12 06:07] LABS: ABG Base Excess 3.4 mmol/L (-2-2); ABG PCO2 37 mmHg (38-42); ABG PO2 103 mmHg (61-120)
[2018-08-12] MEDS: QUEtiapine 25 MG Tablet PO SCH ×2 (06:43→14:48)
[2018-08-12] MEDS: Pantoprazole Inj 40 MG Vial IV.PUSH SCH (08:44)
[2018-08-12] MEDS: Enoxaparin Inj 30 MG/0.3 ML Syringe SQ SCH ×2 (08:44→20:01)
[2018-08-12] MEDS: Sodium Chloride 0.9% 2 ML Flush BID IV.FLUSH SCH ×2 (08:45→20:16)
[2018-08-12] MEDS: Chlorhexidine 0.12% Oral Kit 15 ML UDC OROPHARYNG SCH ×2 (08:45→20:16)
[2018-08-12 08:47] LABS: Blast Cells 1 % (0-0); Lymphocytes 4 % (9-44); Monocytes 4 % (0-8); Platelet Estimate Normal (Normal); Platelet Morphology Normal (Normal)
[2018-08-12] MEDS: QUEtiapine 100 MG Tablet PO SCH (20:15)
[2018-08-12] MEDS ORDERED: Midazolam Inj 5 MG/ML 1 ML Vial IV.PUSH ONE (20:45)
[2018-08-12] MEDS ORDERED: Midazolam Inj 5 MG/ML 1 ML Vial ONE (20:53)
[2018-08-13] MEDS: Propofol 1000 mg/100 ml Inj 1,000 MG/100 ML BOTTLE IV.CONT PRN (00:52)
[2018-08-13] MEDS: fentaNYL 10 mcg/mL Premix Drip 2,500 MCG/250 ML BAG IV.SIG PRN ×2 (01:54→12:52)
[2018-08-13] MEDS: Oral Hygiene Kit OROPHARYNG SCH ×3 (06:10→15:54)
[2018-08-13] MEDS: Metoprolol Inj 5 MG/5 ML Vial IV.PUSH SCH ×4 (06:10→21:34)
[2018-08-13 06:13] LABS: Baso % (Auto) 0.1 % (0.0-2.0); Hemoglobin 10.9 gm/dL (13.0-17.0); Lymph # (Auto) 1.5 th/mm3 (1.0-4.8); Lymph % (Auto) 6.6 % (9.0-44.0); Mean Corpuscular HGB Conc 33.2 % (32.0-36.0); Mean Corpuscular Hemoglobin 30.5 pg (27.0-34.0); Mean Platelet Volume 8.7 fL (7.0-11.0); Mono # (Auto) 0.7 th/mm3 (0.0-0.9); Mono % (Auto) 3.3 % (0.0-8.0); Neut # (Auto) 20.2 th/mm3 (1.8-7.7); Platelet Count 469 th/mm3 (150-450); Red Blood Count 3.58 mil/mm3 (4.50-5.90); Red Cell Distribution Width 15.1 % (11.6-17.2); White Blood Count 22.5 th/mm3 (4.0-11.0)
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
[2018-08-13 06:42] LABS: Alanine Aminotransferase 41 U/L (12-78); Albumin 1.7 g/dL (3.4-5.0); Anion Gap 5 meq/L (5-15); Aspartate Aminotransferase 30 U/L (15-37); Blood Urea Nitrogen 21 mg/dL (7-18); Calcium 7.6 mg/dL (8.5-10.1); Carbon Dioxide 29.4 meq/L (21.0-32.0); Chloride 111 meq/L (98-107); Glomerular Filtration Rate Greater Than 89 mL/min (>89); Glucose,Random 127 mg/dL (74-106); Sodium 145 meq/L (136-145)
[2018-08-13 06:45] LABS: Alkaline Phosphatase 124 U/L (45-117); Total Protein 5.7 g/dL (6.4-8.2)
[2018-08-13] MEDS: QUEtiapine 25 MG Tablet PO SCH ×2 (06:45→16:04)
[2018-08-13 07:06] LABS: ABG Base Excess 3.6 mmol/L (-2-2); ABG PCO2 46 mmHg (38-42); ABG PO2 79 mmHg (61-120)
[2018-08-13 09:42] LABS: Monocytes 1 % (0-8); Myelocytes 1 % (0-0); Toxic Granulation 1+
[2018-08-13 09:43] LABS: Ovalocytes 1+; Platelet Morphology Normal (Normal); Toxic Vacuolation Present
[2018-08-13] MEDS ORDERED: Vancomycin Consult Pharmacy 1 EACH OTHER SCH (10:45)
[2018-08-13] MEDS ORDERED: Vancomycin Inj 1,000 MG in Sodium Chlor 0.9% Inj 250 ML IV.SIG SCH (11:00)
[2018-08-13] MEDS: Sodium Chloride 0.9% 2 ML Flush BID IV.FLUSH SCH ×2 (11:03→21:36)
[2018-08-13] MEDS: Enoxaparin Inj 30 MG/0.3 ML Syringe SQ SCH ×2 (11:03→21:35)
[2018-08-13] MEDS: Pantoprazole Inj 40 MG Vial IV.PUSH SCH (11:03)
[2018-08-13] MEDS: Chlorhexidine 0.12% Oral Kit 15 ML UDC OROPHARYNG SCH ×2 (11:04→23:03)
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
[2018-08-13] MEDS ORDERED: Vancomycin Inj 1,500 MG in Sodium Chlor 0.9% Inj 500 ML IV.SIG ONE (13:00)
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
[2018-08-13] MEDS: Haloperidol Inj 5 MG/ML Ampul IV.PUSH PRN (16:02)
[2018-08-13 16:10] LABS: Bacteria,Urine Rare /hpf; Bilirubin,Urine Negative (Negative); Clarity,Urine Clear (Clear); Color,Urine Yellow (Yellw/Straw); Glucose,Urine (UA) Negative (Negative); Leukocyte Esterase,Urine Negative (Negative); Mucus,Urine Few /lpf (Occasional); Nitrite,Urine Negative (Negative); Specific Gravity,Urine 1.018 (1.002-1.035); Urobilinogen,Urine 4 or Greater mg/dL (Less than 2)
[2018-08-13] MEDS: Morphine Sulfate Inj 2 MG/ML Vial IV.PUSH PRN ×2 (17:33→21:22)
[2018-08-13] MEDS: QUEtiapine 100 MG Tablet PO SCH (23:02)
[2018-08-13] MEDS: Vancomycin Inj 1,000 MG in Sodium Chlor 0.9% Inj 250 ML IV.SIG SCH (23:03)
[2018-08-14] MEDS: Haloperidol Inj 5 MG/ML Ampul IV.PUSH PRN ×4 (00:23→20:54)
[2018-08-14] MEDS: Oral Hygiene Kit OROPHARYNG SCH ×4 (00:48→15:01)
[2018-08-14] MEDS: Morphine Sulfate Inj 2 MG/ML Vial IV.PUSH PRN ×4 (00:48→21:54)
[2018-08-14 04:24] LABS: Baso # (Auto) 0.1 th/mm3 (0.0-0.2); Baso % (Auto) 0.4 % (0.0-2.0); Hematocrit 34.7 % (39.0-51.0); Hemoglobin 11.9 gm/dL (13.0-17.0); Lymph # (Auto) 1.5 th/mm3 (1.0-4.8); Lymph % (Auto) 4.4 % (9.0-44.0); Mean Corpuscular HGB Conc 34.2 % (32.0-36.0); Mean Corpuscular Hemoglobin 30.7 pg (27.0-34.0); Mean Corpuscular Volume 89.8 fL (80.0-100.0); Mean Platelet Volume 7.5 fL (7.0-11.0); Mono # (Auto) 1.2 th/mm3 (0.0-0.9); Mono % (Auto) 3.5 % (0.0-8.0); Neut # (Auto) 31.3 th/mm3 (1.8-7.7); Neut % (Auto) 91.7 % (16.0-70.0); Platelet Count 539 th/mm3 (150-450); Red Blood Count 3.87 mil/mm3 (4.50-5.90); Red Cell Distribution Width 14.5 % (11.6-17.2); White Blood Count 34.2 th/mm3 (4.0-11.0)
[2018-08-14] MEDS: Metoprolol Inj 5 MG/5 ML Vial IV.PUSH SCH ×4 (04:27→22:38)
[2018-08-14 04:41] LABS: Albumin 1.9 g/dL (3.4-5.0); Anion Gap 10 meq/L (5-15); Aspartate Aminotransferase 40 U/L (15-37); Blood Urea Nitrogen 11 mg/dL (7-18); Calcium 7.7 mg/dL (8.5-10.1); Carbon Dioxide 30.3 meq/L (21.0-32.0); Chloride 103 meq/L (98-107); Glomerular Filtration Rate Greater Than 89 mL/min (>89); Glucose,Random 112 mg/dL (74-106); Potassium 3.3 meq/L (3.5-5.1); Sodium 143 meq/L (136-145)
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
[2018-08-14 04:45] LABS: Alanine Aminotransferase 44 U/L (12-78); Alkaline Phosphatase 136 U/L (45-117); Total Protein 6.3 g/dL (6.4-8.2)
[2018-08-14] MEDS: Vancomycin Inj 1,000 MG in Sodium Chlor 0.9% Inj 250 ML IV.SIG SCH ×2 (05:03→13:08)
[2018-08-14 05:14] LABS: Platelet Morphology Normal (Normal); Toxic Granulation 1+
[2018-08-14 05:16] LABS: Lymphocytes 3 % (9-44)
[2018-08-14 05:18] LABS: ABG Base Excess 5.5 mmol/L (-2-2); ABG PCO2 37 mmHg (38-42); ABG PO2 93 mmHg (61-120)
[2018-08-14] MEDS: QUEtiapine 25 MG Tablet PO SCH ×2 (07:51→13:08)
[2018-08-14] MEDS: Pantoprazole Inj 40 MG Vial IV.PUSH SCH (08:09)
[2018-08-14] MEDS: Sodium Chloride 0.9% 2 ML Flush BID IV.FLUSH SCH ×2 (08:09→20:53)
[2018-08-14] MEDS: Enoxaparin Inj 30 MG/0.3 ML Syringe SQ SCH ×2 (08:09→20:53)
[2018-08-14] MEDS ORDERED: ASP: Other exception documentation: ( ) OTHER PRN (09:02)
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
[2018-08-14] MEDS: Valproate Inj 500 MG in Sodium Chlor 0.9% Inj 100 ML IV.SIG SCH ×2 (12:24→18:05)
[2018-08-14] MEDS ORDERED: Pharmacy Ordered Lab Info OTHER ONE (12:45)
[2018-08-14] MEDS: QUEtiapine 100 MG Tablet PO SCH (20:54)
[2018-08-14] MEDS: Vancomycin Inj 1,250 MG in Sodium Chlor 0.9% Inj 250 ML IV.SIG SCH (22:05)
[2018-08-15] MEDS: Morphine Sulfate Inj 2 MG/ML Vial IV.PUSH PRN ×2 (00:59→05:20)
[2018-08-15] MEDS: Oral Hygiene Kit OROPHARYNG SCH ×4 (01:00→16:30)
[2018-08-15] MEDS: Valproate Inj 500 MG in Sodium Chlor 0.9% Inj 100 ML IV.SIG SCH ×3 (03:11→18:30)
[2018-08-15] MEDS: Haloperidol Inj 5 MG/ML Ampul IV.PUSH PRN (03:23)
--- NOTE | 2018-08-15 04:13 | XR ---
EXAM DATE: 08/15/2018 4:06 AM EST AGE/SEX: 89 years / Male INDICATIONS: Shortness of breath. CLINICAL DATA: This is the patient's subsequent encounter. Patient reports that signs and symptoms h ave been present for 1 week and indicates a pain score of 3/10. MEDICAL/SURGICAL HISTORY: None. Chest tube, left. COMPARISON: [facility] [place], CHEST 1V SINGLE AP, 08/14/2018. . FINDINGS: Single AP view of the chest. Left-sided chest tube and left subclavian central venous catheter remain in place. Persistent hazy bilateral pulmonary opacity with slight increase in the indistinctness of the pulmonary vasculature. Small left pleural effusion unchanged. No evidence of pneumothorax. Cardio mediastinal silhouette within normal limits. CONCLUSION: Persistent bilateral diffuse pulmonary opacity with increase in severity of pulmonary vasculature ind istinctness suggesting slight increase in severity of pulmonary edema. Electronically signed by: Rajesh Verdugo MD 08/15/2018 4:12 AM EST
[2018-08-15] MEDS: Metoprolol Inj 5 MG/5 ML Vial IV.PUSH SCH ×4 (04:14→23:43)
[2018-08-15] MEDS: Vancomycin Inj 1,250 MG in Sodium Chlor 0.9% Inj 250 ML IV.SIG SCH ×3 (05:20→21:21)
[2018-08-15 06:18] LABS: Baso % (Auto) 0.1 % (0.0-2.0); Hematocrit 34.9 % (39.0-51.0); Hemoglobin 11.9 gm/dL (13.0-17.0); Lymph # (Auto) 1.2 th/mm3 (1.0-4.8); Lymph % (Auto) 3.6 % (9.0-44.0); Mean Corpuscular HGB Conc 34.1 % (32.0-36.0); Mean Corpuscular Hemoglobin 31.2 pg (27.0-34.0); Mean Corpuscular Volume 91.3 fL (80.0-100.0); Mean Platelet Volume 8.1 fL (7.0-11.0); Neut % (Auto) 93.3 % (16.0-70.0); Platelet Count 580 th/mm3 (150-450); Red Blood Count 3.83 mil/mm3 (4.50-5.90); Red Cell Distribution Width 14.1 % (11.6-17.2); White Blood Count 32.2 th/mm3 (4.0-11.0)
[2018-08-15] MEDS: QUEtiapine 25 MG Tablet PO SCH ×2 (06:25→15:01)
[2018-08-15 06:43] LABS: Anion Gap 10 meq/L (5-15); Aspartate Aminotransferase 31 U/L (15-37); Blood Urea Nitrogen 14 mg/dL (7-18); Calcium 8.2 mg/dL (8.5-10.1); Carbon Dioxide 28.5 meq/L (21.0-32.0); Chloride 105 meq/L (98-107); Glomerular Filtration Rate Greater Than 89 mL/min (>89); Glucose,Random 103 mg/dL (74-106); Potassium 3.6 meq/L (3.5-5.1); Sodium 143 meq/L (136-145)
[2018-08-15 06:46] LABS: Alanine Aminotransferase 39 U/L (12-78); Alkaline Phosphatase 118 U/L (45-117); Total Protein 6.7 g/dL (6.4-8.2)
[2018-08-15 08:04] LABS: Monocytes 2 % (0-8)
[2018-08-15 08:05] LABS: Toxic Granulation 2+
[2018-08-15 08:06] LABS: Platelet Morphology Normal (Normal)
[2018-08-15] MEDS: Pantoprazole Inj 40 MG Vial IV.PUSH SCH (08:28)
[2018-08-15] MEDS: Sodium Chloride 0.9% 2 ML Flush BID IV.FLUSH SCH ×2 (08:28→21:21)
[2018-08-15] MEDS: Enoxaparin Inj 30 MG/0.3 ML Syringe SQ SCH ×2 (08:28→21:21)
[2018-08-15 14:16] LABS: ABG Base Excess 1.9 mmol/L (-2-2); ABG PCO2 31 mmHg (38-42); ABG PO2 102 mmHG (61-120)
[2018-08-15] MEDS ORDERED: HYDROmorphone PF Inj 2 MG/ML Vial IV.PUSH ONE (14:30)
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
[2018-08-15] MEDS: HYDROmorphone PF Inj 1 MG/ML Ampul IV.PUSH PRN ×2 (19:30→23:42)
[2018-08-15] MEDS ORDERED: Pharmacy Ordered Lab Info OTHER ONE (19:45)
[2018-08-15] MEDS: QUEtiapine 100 MG Tablet PO SCH (20:31)
[2018-08-16] MEDS: Oral Hygiene Kit OROPHARYNG SCH ×4 (01:30→15:53)
[2018-08-16] MEDS: HYDROmorphone PF Inj 1 MG/ML Ampul IV.PUSH PRN ×5 (03:38→22:10)
[2018-08-16] MEDS: Metoprolol Inj 5 MG/5 ML Vial IV.PUSH SCH ×4 (03:38→22:15)
[2018-08-16] MEDS: Valproate Inj 500 MG in Sodium Chlor 0.9% Inj 100 ML IV.SIG SCH ×2 (03:39→10:18)
[2018-08-16] MEDS: Vancomycin Inj 1,250 MG in Sodium Chlor 0.9% Inj 250 ML IV.SIG SCH ×3 (05:27→20:57)
--- NOTE | 2018-08-16 05:37 | XR ---
EXAM DATE: 08/16/2018 5:22 AM EST AGE/SEX: 89 years / Male INDICATIONS: Short of breath. CLINICAL DATA: This is the patient's subsequent encounter. Patient reports that signs and symptoms h ave been present for 4 - 6 days and indicates a pain score of 0/10. MEDICAL/SURGICAL HISTORY: Non-responsive. Non-responsive. COMPARISON: [facility] – [place], CHEST 1V SINGLE AP, 08/15/2018. . FINDINGS: Single AP view the chest. Lung volumes are low. Bilateral pulmonary opacities again seen with diffuse hazy opacity and small patchy more confluent opacity in the right midlung zone and medial left lower lung zone. No significant interval change. Blunting of the left costophrenic sulcus again seen indic ating left pleural effusion. CONCLUSION: No significant interval change in prominent bilateral pulmonary opacity and left pleural effusion. Electronically signed by: Rajesh Verdugo MD 08/16/2018 5:35 AM EST
[2018-08-16] MEDS: QUEtiapine 25 MG Tablet PO SCH ×2 (07:27→13:56)
[2018-08-16 08:29] LABS: Baso # (Auto) 0.1 th/mm3 (0.0-0.2); Baso % (Auto) 0.6 % (0.0-2.0); Eos # (Auto) 0.1 th/mm3 (0.0-0.4); Eos % (Auto) 0.3 % (0.0-4.0); Hematocrit 41.7 % (39.0-51.0); Hemoglobin 14.4 gm/dL (13.0-17.0); Lymph # (Auto) 1.7 th/mm3 (1.0-4.8); Lymph % (Auto) 6.6 % (9.0-44.0); Mean Corpuscular HGB Conc 34.4 % (32.0-36.0); Mean Corpuscular Hemoglobin 31.5 pg (27.0-34.0); Mean Corpuscular Volume 91.5 fL (80.0-100.0); Mean Platelet Volume 8.5 fL (7.0-11.0); Mono # (Auto) 1.2 th/mm3 (0.0-0.9); Mono % (Auto) 4.7 % (0.0-8.0); Neut # (Auto) 22.6 th/mm3 (1.8-7.7); Neut % (Auto) 87.8 % (16.0-70.0); Platelet Count 520 th/mm3 (150-450); Red Blood Count 4.56 mil/mm3 (4.50-5.90); Red Cell Distribution Width 14.3 % (11.6-17.2); White Blood Count 25.7 th/mm3 (4.0-11.0)
[2018-08-16] MEDS: Enoxaparin Inj 30 MG/0.3 ML Syringe SQ SCH ×2 (08:40→20:58)
[2018-08-16] MEDS: Sodium Chloride 0.9% 2 ML Flush BID IV.FLUSH SCH ×2 (08:40→20:58)
[2018-08-16] MEDS: Pantoprazole Inj 40 MG Vial IV.PUSH SCH (08:40)
[2018-08-16 08:47] LABS: Anion Gap 9 meq/L (5-15); Blood Urea Nitrogen 15 mg/dL (7-18); Calcium 8.4 mg/dL (8.5-10.1); Carbon Dioxide 27.1 meq/L (21.0-32.0); Chloride 100 meq/L (98-107); Glomerular Filtration Rate Greater Than 89 mL/min (>89); Glucose,Random 79 mg/dL (74-106); Potassium 3.6 meq/L (3.5-5.1); Sodium 136 meq/L (136-145)
[2018-08-16 09:43] LABS: Lymphocytes 6 % (9-44); Metamyelocytes 1 % (0-1); Monocytes 1 % (0-8); Myelocytes 1 % (0-0); Platelet Estimate Normal (Normal); Platelet Morphology Normal (Normal); Toxic Granulation 1+
[2018-08-16 09:44] LABS: RBC Morphology Normal (Normal)
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
[2018-08-16] MEDS: levoFLOXacin 750 MG Tablet PO SCH (11:21)
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
[2018-08-16] MEDS: Morphine Sulfate Inj 2 MG/ML Vial IV.PUSH PRN (23:42)
[2018-08-17] MEDS: Oral Hygiene Kit OROPHARYNG SCH ×4 (00:54→19:40)
[2018-08-17] MEDS: HYDROmorphone PF Inj 1 MG/ML Ampul IV.PUSH PRN ×4 (02:15→20:27)
[2018-08-17] MEDS: Vancomycin Inj 1,250 MG in Sodium Chlor 0.9% Inj 250 ML IV.SIG SCH ×2 (04:30→13:15)
[2018-08-17] MEDS: Metoprolol Inj 5 MG/5 ML Vial IV.PUSH SCH ×4 (04:30→22:22)
[2018-08-17] MEDS: Morphine Sulfate Inj 2 MG/ML Vial IV.PUSH PRN ×4 (05:02→22:37)
[2018-08-17 05:51] LABS: Baso # (Auto) 0.1 th/mm3 (0.0-0.2); Baso % (Auto) 0.5 % (0.0-2.0); Eos # (Auto) 0.1 th/mm3 (0.0-0.4); Eos % (Auto) 0.5 % (0.0-4.0); Hematocrit 37.8 % (39.0-51.0); Hemoglobin 13.4 gm/dL (13.0-17.0); Lymph # (Auto) 1.8 th/mm3 (1.0-4.8); Lymph % (Auto) 7.4 % (9.0-44.0); Mean Corpuscular HGB Conc 35.3 % (32.0-36.0); Mean Corpuscular Hemoglobin 31.3 pg (27.0-34.0); Mean Corpuscular Volume 88.7 fL (80.0-100.0); Mean Platelet Volume 8.1 fL (7.0-11.0); Mono # (Auto) 1.7 th/mm3 (0.0-0.9); Mono % (Auto) 7.3 % (0.0-8.0); Neut # (Auto) 20.3 th/mm3 (1.8-7.7); Neut % (Auto) 84.3 % (16.0-70.0); Platelet Count 595 th/mm3 (150-450); Red Blood Count 4.26 mil/mm3 (4.50-5.90); Red Cell Distribution Width 14.1 % (11.6-17.2)
[2018-08-17 06:14] LABS: Anion Gap 8 meq/L (5-15); Blood Urea Nitrogen 9 mg/dL (7-18); Calcium 7.7 mg/dL (8.5-10.1); Carbon Dioxide 27.3 meq/L (21.0-32.0); Chloride 101 meq/L (98-107); Glomerular Filtration Rate Greater Than 89 mL/min (>89); Glucose,Random 105 mg/dL (74-106); Magnesium 1.9 mg/dL (1.5-2.5); Potassium 3.1 meq/L (3.5-5.1); Sodium 136 meq/L (136-145)
[2018-08-17] MEDS: Sodium Chloride 0.9% 2 ML Flush BID IV.FLUSH SCH ×2 (10:09→20:28)
[2018-08-17] MEDS: Enoxaparin Inj 30 MG/0.3 ML Syringe SQ SCH ×2 (10:09→20:28)
[2018-08-17] MEDS: Pantoprazole Inj 40 MG Vial IV.PUSH SCH (10:09)
[2018-08-17] MEDS: levoFLOXacin 750 MG Tablet PO SCH (10:11)
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
[2018-08-17] MEDS ORDERED: Pharmacy Ordered Lab Info OTHER ONE (11:45)
[2018-08-17] MEDS: metroNIDAZOLE 500 MG Tablet PO SCH ×2 (14:05→19:41)
--- NOTE | 2018-08-17 18:29 | P.PNCC ---
Subjective Subjective Remarks/Hospital Course: 08/16: Afebrile. No acute events overnight patient pain well controlled with Dilaudid every 4 hours as needed. ID was consulted antibiotics changed leukocytosis resolving. Patient now up out of bed ambulating to bathroom with assistance. Diet has been advanced to full liquid. 08/17: Patient alert and oriented x 3. patient tolerating diet, having bowel movements x2.. Pain now well controlled utilizing incentive spirometry every hour. Leukocytosis is downtrending. Noted per ID recommendations Flagyl was added, Levaquin was changed to p.o. dosing. Objective Vital Signs / I&O: Vital Signs 08/16/18 19:00 08/16/18 19:24 08/16/18 20:00 Temperature 98.2 F Pulse Rate 79 94 H Respiratory Rate 30 H 43 H Blood Pressure 121/62 150/90 H Pulse Oximetry 95 94 L 89 L 08/16/18 21:00 08/16/18 22:00 08/16/18 22:14 Temperature Pulse Rate 94 H 89 94 H Respiratory Rate 44 H 56 H 57 H Blood Pressure 147/101 H 153/86 H 141/84 H Pulse Oximetry 73 L 87 L 89 L 08/16/18 22:50 08/16/18 23:00 08/17/18 00:00 Temperature 98.4 F Pulse Rate 94 H 88 Respiratory Rate 18 60 H 59 H Blood Pressure 141/83 H 152/87 H Pulse Oximetry 91 L 91 L 08/17/18 01:00 08/17/18 02:00 08/17/18 03:00 Temperature Pulse Rate 98 H 99 H 80 Respiratory Rate 59 H 44 H 33 H Blood Pressure 146/84 H 140/90 120/62 Pulse Oximetry 95 93 L 08/17/18 03:11 08/17/18 04:00 08/17/18 05:00 Temperature 98.4 F Pulse Rate 81 99 H Respiratory Rate 18 31 H 49 H Blood Pressure 136/72 133/69 Pulse Oximetry 92 L 92 L 08/17/18 06:00 08/17/18 07:00 08/17/18 07:17 Temperature Pulse Rate 95 H 84 Respiratory Rate 41 H 36 H 18 Blood Pressure 137/89 133/83 Pulse Oximetry 95 94 L 08/17/18 08:00 08/17/18 09:00 08/17/18 10:00 Temperature 98.3 F Pulse Rate 81 97 H 87 Respiratory Rate 40 H 58 H 43 H Blood Pressure 161/85 H 148/93 H 122/64 Pulse Oximetry 96 93 L 08/17/18 11:00 08/17/18 12:00 08/17/18 13:00 Temperature Pulse Rate 84 97 H 99 H Respiratory Rate 41 H 68 H 48 H Blood Pressure 128/63 172/85 H 147/82 H Pulse Oximetry 08/17/18 14:00 08/17/18 15:00 08/17/18 15:40 Temperature 98.7 F Pulse Rate 97 H 108 H 90 Respiratory Rate 53 H 55 H 23 Blood Pressure 138/84 136/70 126/78 Pulse Oximetry 84 L 93 L Intake & Output 08/16/18 08/17/18 08/17/18 18:59 06:59 18:59 Intake Total 1525.0 / 1525.0 1462.5 / 1462.5 262.5 / 262.5 Output Total 1500 / 1500 2550 / 2550 Balance 25.0 / 25.0 -1087.5 / -1087.5 262.5 / 262.5 Weight 63.8 kg Intake: IV 525.0 / 525.0 262.5 / 262.5 262.5 / 262.5 Vancomycin Inj 1,250 MG In NS 525.0 / 525.0 262.5 / 262.5 262.5 / 262.5 Inj 250 ML @ 250 mls/hr IV.SIG Q8H [facility] Rx#:[id number] Oral 1000 / 1000 1200 / 1200 Output: Urine 1500 / 1500 2550 / 2550 Other: # Voids 5 Date of Last Bowel Movement 08/16/18 08/17/18 08/17/18 # Bowel Movements 4 1 Result Diagrams: 08/17/18 04:30 08/17/18 04:30 Objective Remarks: GENERAL: Thin appearing male resting comfortably in bed in no acute distress. Awake and pleasantly conversant SKIN: Warm and dry. HEAD: Atraumatic. Normocephalic. EYES: Pupils equal and round. No scleral icterus.EOMI. No injection or drainage. ENT: No nasal bleeding or discharge. Noted anatomical defect nasal bridge deviated .Mucous membranes pink and moist. NECK: Trachea midline. No JVD. CARDIOVASCULAR: Normal rate, regular rhythm. RESPIRATORY: No accessory muscle use. Clear to auscultation. Breath sounds equal bilaterally. GASTROINTESTINAL: Abdomen soft, non-tender, nondistended. No guarding. Normoactive bowel sounds. midline incision dae no erythema or drainage MUSCULOSKELETAL: Extremities without clubbing, cyanosis, or edema. No obvious deformities. Multiple tattoos bilateral upper lower remedies NEUROLOGICAL: Awake and alert. RASS 0. No gross focal/sensory deficits. Follows commands in all 4 extremities. Assessment and Plan - Assessment and Plan Plan: Plan by systems: Neurologic: Postop surgical pain Pain secondary to multiple rib fractures Continue morphine 2 mg every 3 hours Dilaudid 1 mg every 4 hours for pain scale 810 Respiratory: Tachypnea-resolved Respiratory insufficiency-resolved Pulmonary edema-resolved Maintain O2 sat greater than 92% currently on Ventimask at 60% Continue aggressive pulmonary toilet-use utilization of incentive spirometry every hour while awake Duo nebs every 2 hours as needed 08/16 chest [id number] Cardiovascular: Hypertension-resolved Metoprolol PRN Maintain systolic BP <160 Renal: -- Strict I/Os FEN/GI: Mild protein calorie malnutrition Albumin level 2.0 Full liquid diet, advance to regular diet Heme/ID: Persistent leukocytosis Thrombocytosis secondary to infection Pneumonia Urosepsis 08/15 Central line removal 08/15 left chest tube removal Follow-up repeat blood cultures urine culture-Enterobacter cloacae Sputum culture -Enterobacter cloacae, Staph aureus, strep pneumo Mid abdominal surgical site dae to be managed by surgery ID following continue antibiotics per recommendations-Levaquin changed to p.o. dosing, Flagyl added to medication regimen. Recommendation for repeat CT of the abdomen and pelvis in Endocrine: Glucose monitoring per ICU protocol -- SSI Prophylaxis: GI Prophylaxis Protonix twice daily DVT Prophylaxis -- SCDs Lines: Peripheral IVs x2 Dispo: Level 3. Plan transfer to [facility] floor. Further management per trauma service. Thank you for the consult.
[2018-08-17] MEDS: Vancomycin Inj 1,500 MG in Sodium Chlor 0.9% Inj 500 ML IV.SIG SCH (22:33)
[2018-08-18] MEDS: metroNIDAZOLE 500 MG Tablet PO SCH ×4 (00:30→18:45)
[2018-08-18] MEDS: HYDROmorphone PF Inj 1 MG/ML Ampul IV.PUSH PRN ×3 (00:30→12:40)
[2018-08-18] MEDS: Oral Hygiene Kit OROPHARYNG SCH ×4 (01:18→15:32)
[2018-08-18] MEDS: Morphine Sulfate Inj 2 MG/ML Vial IV.PUSH PRN ×5 (03:37→22:13)
[2018-08-18] MEDS: Metoprolol Inj 5 MG/5 ML Vial IV.PUSH SCH ×2 (04:54→10:00)
[2018-08-18] MEDS: Vancomycin Inj 1,500 MG in Sodium Chlor 0.9% Inj 500 ML IV.SIG SCH ×2 (06:00→16:29)
[2018-08-18 06:32] LABS: Baso # (Auto) 0.1 th/mm3 (0.0-0.2); Baso % (Auto) 0.2 % (0.0-2.0); Eos # (Auto) 0.1 th/mm3 (0.0-0.4); Eos % (Auto) 0.4 % (0.0-4.0); Hematocrit 38.9 % (39.0-51.0); Hemoglobin 13.2 gm/dL (13.0-17.0); Lymph # (Auto) 1.9 th/mm3 (1.0-4.8); Lymph % (Auto) 7.3 % (9.0-44.0); Mean Corpuscular HGB Conc 33.9 % (32.0-36.0); Mean Corpuscular Hemoglobin 30.6 pg (27.0-34.0); Mean Corpuscular Volume 90.3 fL (80.0-100.0); Mean Platelet Volume 7.9 fL (7.0-11.0); Mono # (Auto) 2.2 th/mm3 (0.0-0.9); Mono % (Auto) 8.5 % (0.0-8.0); Neut # (Auto) 21.7 th/mm3 (1.8-7.7); Neut % (Auto) 83.6 % (16.0-70.0); Platelet Count 616 th/mm3 (150-450); Red Cell Distribution Width 14.5 % (11.6-17.2)
[2018-08-18] MEDS: Enoxaparin Inj 30 MG/0.3 ML Syringe SQ SCH ×2 (08:30→20:21)
[2018-08-18] MEDS: Pantoprazole Inj 40 MG Vial IV.PUSH SCH (08:31)
[2018-08-18] MEDS: Sodium Chloride 0.9% 2 ML Flush BID IV.FLUSH SCH ×2 (08:32→20:22)
[2018-08-18 08:33] LABS: Platelet Morphology Normal (Normal); Toxic Granulation 1+
[2018-08-18] MEDS: levoFLOXacin 750 MG Tablet PO SCH (10:45)
[2018-08-18] MEDS ORDERED: Diatrizoate Meglum/Diatrizoate Sod Liq 9 ML UDC PO ONE (14:00)
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
[2018-08-18] MEDS ORDERED: Pharmacy Ordered Lab Info OTHER ONE (14:45)
[2018-08-18 15:54] LABS: Anion Gap 4 meq/L (5-15); Blood Urea Nitrogen 13 mg/dL (7-18); Calcium 8.1 mg/dL (8.5-10.1); Carbon Dioxide 31.9 meq/L (21.0-32.0); Chloride 99 meq/L (98-107); Glomerular Filtration Rate Greater Than 89 mL/min (>89); Glucose,Random 100 mg/dL (74-106); Phosphorus 2.6 mg/dL (2.5-4.9); Potassium 4.4 meq/L (3.5-5.1); Sodium 135 meq/L (136-145); Vancomycin,Trough 9.1 mcg/mL (5.0-10.0)
[2018-08-19] MEDS: metroNIDAZOLE 500 MG Tablet PO SCH ×4 (00:23→17:59)
[2018-08-19] MEDS: Vancomycin Inj 1,500 MG in Sodium Chlor 0.9% Inj 500 ML IV.SIG SCH ×4 (00:23→22:43)
[2018-08-19] MEDS: Morphine Sulfate Inj 2 MG/ML Vial IV.PUSH PRN ×6 (01:12→22:43)
[2018-08-19 05:39] LABS: Baso # (Auto) 0.2 th/mm3 (0.0-0.2); Baso % (Auto) 0.7 % (0.0-2.0); Eos # (Auto) 0.1 th/mm3 (0.0-0.4); Eos % (Auto) 0.5 % (0.0-4.0); Hematocrit 38.2 % (39.0-51.0); Hemoglobin 13.5 gm/dL (13.0-17.0); Lymph # (Auto) 2.4 th/mm3 (1.0-4.8); Mean Corpuscular HGB Conc 35.3 % (32.0-36.0); Mean Corpuscular Hemoglobin 31.8 pg (27.0-34.0); Mono # (Auto) 2.1 th/mm3 (0.0-0.9); Mono % (Auto) 7.7 % (0.0-8.0); Neut # (Auto) 22.1 th/mm3 (1.8-7.7); Neut % (Auto) 82.1 % (16.0-70.0); Platelet Count 695 th/mm3 (150-450); Red Blood Count 4.24 mil/mm3 (4.50-5.90); Red Cell Distribution Width 14.4 % (11.6-17.2)
[2018-08-19] MEDS ORDERED: Pharmacy Ordered Lab Info OTHER ONE (06:45)
[2018-08-19] MEDS: Enoxaparin Inj 30 MG/0.3 ML Syringe SQ SCH ×2 (09:10→20:42)
[2018-08-19] MEDS ORDERED: Diatrizoate Meglum/Diatrizoate Sod Liq 9 ML UDC PO ONE (10:00)
[2018-08-19] MEDS: Sodium Chloride 0.9% 2 ML Flush BID IV.FLUSH SCH ×2 (11:19→20:42)
[2018-08-19] MEDS: levoFLOXacin 750 MG Tablet PO SCH (11:23)
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
[2018-08-20] MEDS: metroNIDAZOLE 500 MG Tablet PO SCH ×4 (00:59→18:15)
[2018-08-20] MEDS: Morphine Sulfate Inj 2 MG/ML Vial IV.PUSH PRN ×3 (02:05→20:23)
[2018-08-20 05:06] LABS: Baso # (Auto) 0.1 th/mm3 (0.0-0.2); Baso % (Auto) 0.3 % (0.0-2.0); Eos # (Auto) 0.1 th/mm3 (0.0-0.4); Eos % (Auto) 0.5 % (0.0-4.0); Hematocrit 36.6 % (39.0-51.0); Hemoglobin 12.6 gm/dL (13.0-17.0); Lymph # (Auto) 1.7 th/mm3 (1.0-4.8); Lymph % (Auto) 6.9 % (9.0-44.0); Mean Corpuscular HGB Conc 34.5 % (32.0-36.0); Mean Corpuscular Hemoglobin 31.3 pg (27.0-34.0); Mean Corpuscular Volume 90.7 fL (80.0-100.0); Mean Platelet Volume 7.4 fL (7.0-11.0); Mono # (Auto) 2.5 th/mm3 (0.0-0.9); Mono % (Auto) 10.6 % (0.0-8.0); Neut # (Auto) 19.4 th/mm3 (1.8-7.7); Neut % (Auto) 81.7 % (16.0-70.0); Platelet Count 698 th/mm3 (150-450); Red Blood Count 4.03 mil/mm3 (4.50-5.90); Red Cell Distribution Width 14.2 % (11.6-17.2); White Blood Count 23.8 th/mm3 (4.0-11.0)
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
[2018-08-20 05:25] LABS: Anion Gap 5 meq/L (5-15); Blood Urea Nitrogen 9 mg/dL (7-18); Calcium 8.1 mg/dL (8.5-10.1); Carbon Dioxide 28.8 meq/L (21.0-32.0); Chloride 100 meq/L (98-107); Glomerular Filtration Rate Greater Than 89 mL/min (>89); Glucose,Random 121 mg/dL (74-106); Sodium 134 meq/L (136-145)
[2018-08-20] MEDS ORDERED: Pharmacy Ordered Lab Info OTHER ONE (06:45)
[2018-08-20] MEDS: Vancomycin Inj 1,500 MG in Sodium Chlor 0.9% Inj 500 ML IV.SIG SCH ×2 (06:58→15:37)
[2018-08-20 08:33] LABS: Lymphocytes 9 % (9-44); Metamyelocytes 2 % (0-1); Monocytes 6 % (0-8); Platelet Morphology Normal (Normal); RBC Morphology Normal (Normal); Toxic Granulation 1+
[2018-08-20] MEDS: Enoxaparin Inj 30 MG/0.3 ML Syringe SQ SCH (08:56)
[2018-08-20] MEDS: Sodium Chloride 0.9% 2 ML Flush BID IV.FLUSH SCH ×2 (09:01→20:25)
[2018-08-20] MEDS: levoFLOXacin 750 MG Tablet PO SCH (11:09)
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
[2018-08-20 14:35] LABS: INR 1.5 Ratio
[2018-08-20] MEDS: Acetaminophen 325 MG Tablet PO PRN (20:29)
[2018-08-21] MEDS: Vancomycin Inj 1,500 MG in Sodium Chlor 0.9% Inj 500 ML IV.SIG SCH ×4 (00:10→22:28)
[2018-08-21] MEDS: metroNIDAZOLE 500 MG Tablet PO SCH ×4 (00:11→19:04)
[2018-08-21] MEDS: Morphine Sulfate Inj 2 MG/ML Vial IV.PUSH PRN ×3 (01:15→11:28)
[2018-08-21] MEDS: Sodium Chloride 0.9% 2 ML Flush PRN IV.FLUSH (01:16)
[2018-08-21 04:23] LABS: Baso # (Auto) 0.1 th/mm3 (0.0-0.2); Baso % (Auto) 0.5 % (0.0-2.0); Eos # (Auto) 0.2 th/mm3 (0.0-0.4); Eos % (Auto) 0.6 % (0.0-4.0); Hematocrit 40.5 % (39.0-51.0); Hemoglobin 13.4 gm/dL (13.0-17.0); Lymph # (Auto) 2.6 th/mm3 (1.0-4.8); Lymph % (Auto) 10.3 % (9.0-44.0); Mean Corpuscular HGB Conc 33.1 % (32.0-36.0); Mean Corpuscular Hemoglobin 30.3 pg (27.0-34.0); Mean Corpuscular Volume 91.5 fL (80.0-100.0); Mono # (Auto) 2.1 th/mm3 (0.0-0.9); Mono % (Auto) 8.3 % (0.0-8.0); Neut # (Auto) 20.1 th/mm3 (1.8-7.7); Neut % (Auto) 80.3 % (16.0-70.0); Platelet Count 769 th/mm3 (150-450); Red Blood Count 4.42 mil/mm3 (4.50-5.90); Red Cell Distribution Width 14.4 % (11.6-17.2)
[2018-08-21 05:18] LABS: Lymphocytes 12 % (9-44); Monocytes 4 % (0-8); Myelocytes 1 % (0-0); Platelet Morphology Normal (Normal)
[2018-08-21 05:20] LABS: Helmet Cells 1+; Toxic Vacuolation Present
[2018-08-21] MEDS: Lactobacillus Acidophilus/L. Spores Tablet PO SCH ×3 (08:12→19:04)
[2018-08-21] MEDS: Sodium Chloride 0.9% 2 ML Flush BID IV.FLUSH SCH ×2 (08:13→20:16)
[2018-08-21] MEDS ORDERED: fentaNYL Citrate Inj 100 MCG/2 ML Ampul ONE (08:42)
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
--- NOTE | 2018-08-21 10:01 | XR ---
EXAM DATE: 08/21/2018 9:58 AM EST AGE/SEX: 89 years / Male INDICATIONS: Post chest tube placement CLINICAL DATA: This is the patient's subsequent encounter. Patient reports that signs and symptoms h ave been present for 3 days and indicates a pain score of 0/10. MEDICAL/SURGICAL HISTORY: None. . Left Chest tube placement COMPARISON: [facility] – [place], CHEST 1V SINGLE AP, 08/20/2018. . FINDINGS: Bilateral lung base thoracostomy tubes are present. There is no evidence of pneumothorax. Patchy bila teral parenchymal opacities persist. Partially loculated left effusion persists. Minimal pleural flui d on the right. Cardiac contours are unchanged. CONCLUSION: Bilateral lung base thoracostomy tubes now present. Electronically signed by: Paulie White MD 08/21/2018 10:00 AM EST
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
[2018-08-21] MEDS ORDERED: Metoprolol Tartrate 25 MG Tablet PO SCH (11:00)
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
[2018-08-21] MEDS: levoFLOXacin 750 MG Tablet PO SCH (11:42)
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
[2018-08-21] MEDS: Morphine Inj 4 MG/ML Vial IV.PUSH PRN ×2 (16:02→21:47)
[2018-08-21] MEDS: Ketorolac Inj 30 MG/ML (IVP) Vial IV.PUSH SCH ×2 (16:02→21:46)
[2018-08-21] MEDS: Enoxaparin Inj 30 MG/0.3 ML Syringe SQ SCH ×2 (20:15→21:48)
[2018-08-22] MEDS: metroNIDAZOLE 500 MG Tablet PO SCH ×5 (01:25→23:39)
[2018-08-22] MEDS: Ketorolac Inj 30 MG/ML (IVP) Vial IV.PUSH SCH ×4 (01:26→20:05)
[2018-08-22] MEDS: Morphine Inj 4 MG/ML Vial IV.PUSH PRN ×4 (02:39→23:40)
[2018-08-22] MEDS: Vancomycin Inj 1,500 MG in Sodium Chlor 0.9% Inj 500 ML IV.SIG SCH ×3 (06:14→23:40)
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
[2018-08-22] MEDS: Lactobacillus Acidophilus/L. Spores Tablet PO SCH ×3 (09:07→17:46)
[2018-08-22] MEDS: Senna/Docusate Sodium 8.6/50 MG Tablet PO SCH ×2 (09:07→20:05)
[2018-08-22] MEDS: Enoxaparin Inj 30 MG/0.3 ML Syringe SQ SCH ×2 (09:09→20:06)
[2018-08-22] MEDS: Polyethylene Glycol 3350 17 GM Packet PO SCH (09:10)
[2018-08-22] MEDS: Sodium Chloride 0.9% 2 ML Flush BID IV.FLUSH SCH ×2 (09:11→20:06)
--- NOTE | 2018-08-22 10:14 | XR ---
EXAM DATE: 08/22/2018 10:10 AM EST AGE/SEX: 89 years / Male INDICATIONS: Left pneumothorax. CLINICAL DATA: This is the patient's subsequent encounter. Patient reports that signs and symptoms h ave been present for 3 days and indicates a pain score of 0/10. MEDICAL/SURGICAL HISTORY: None. . Left chest tube placement. COMPARISON: [facility], CHEST EXPIRATION ONLY, 08/21/2018. . FINDINGS: There are bilateral small bore chest tubes. There is still a small amount of fluid on the left which remains. This is stable compared to previous. There is no significant effusion on the right. There ar e mild atelectatic changes seen within the left lung as well. No pneumothorax is identified. The osseous structures are grossly intact. CONCLUSION: Bilateral small bore chest tubes are in place. There is no residual pneumothorax. There is minimal ef fusion which remains on the left. Electronically signed by: Freddy Vogt MD 08/22/2018 10:12 AM EST
[2018-08-22] MEDS: levoFLOXacin 750 MG Tablet PO SCH (10:28)
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
--- NOTE | 2018-08-22 15:38 | ECG ---
Date Performed: 08/21/2018 Time Performed: 13:54:05 PTAGE: 89 years EKG: SINUS TACHYCARDIA WITH SHORT VT INTERVAL ABNORMAL RHYTHM ECG NO PREVIOUS TRACING DOCTOR: Clarissa Garcia Interpretating Date/Time 08/22/2018 15:41:40
[2018-08-22] MEDS: Melatonin 5 MG Tablet PO SCH (20:05)
[2018-08-23] MEDS: Morphine Inj 4 MG/ML Vial IV.PUSH PRN ×3 (03:53→21:40)
[2018-08-23] MEDS: Ketorolac Inj 30 MG/ML (IVP) Vial IV.PUSH SCH ×4 (03:53→20:19)
[2018-08-23 05:08] LABS: Eos # (Auto) 0.4 th/mm3 (0.0-0.4); Eos % (Auto) 2.4 % (0.0-4.0); Hemoglobin 12.2 gm/dL (13.0-17.0); Lymph # (Auto) 1.3 th/mm3 (1.0-4.8); Lymph % (Auto) 7.3 % (9.0-44.0); Mean Corpuscular HGB Conc 32.9 % (32.0-36.0); Mean Corpuscular Hemoglobin 29.7 pg (27.0-34.0); Mean Corpuscular Volume 90.1 fL (80.0-100.0); Mean Platelet Volume 7.1 fL (7.0-11.0); Mono # (Auto) 1.3 th/mm3 (0.0-0.9); Mono % (Auto) 7.1 % (0.0-8.0); Neut # (Auto) 15.3 th/mm3 (1.8-7.7); Neut % (Auto) 83.2 % (16.0-70.0); Platelet Count 701 th/mm3 (150-450); Red Cell Distribution Width 14.1 % (11.6-17.2); White Blood Count 18.4 th/mm3 (4.0-11.0)
[2018-08-23] MEDS: metroNIDAZOLE 500 MG Tablet PO SCH ×4 (05:52→23:26)
[2018-08-23] MEDS: Vancomycin Inj 1,500 MG in Sodium Chlor 0.9% Inj 500 ML IV.SIG SCH ×3 (06:02→23:26)
[2018-08-23] MEDS ORDERED: Chlorhexidine Gluconate 2% 1 Pack (2 Cloths) TOPICAL ONE (08:45)
[2018-08-23] MEDS: Senna/Docusate Sodium 8.6/50 MG Tablet PO SCH ×2 (09:04→20:19)
[2018-08-23] MEDS: Lactobacillus Acidophilus/L. Spores Tablet PO SCH ×3 (09:04→17:40)
[2018-08-23] MEDS: Polyethylene Glycol 3350 17 GM Packet PO SCH (09:06)
[2018-08-23] MEDS: Sodium Chloride 0.9% 2 ML Flush BID IV.FLUSH SCH ×2 (09:06→20:23)
[2018-08-23] MEDS: Enoxaparin Inj 30 MG/0.3 ML Syringe SQ SCH ×2 (10:21→20:19)
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
[2018-08-23] MEDS: levoFLOXacin 750 MG Tablet PO SCH (11:58)
[2018-08-23] MEDS ORDERED: Succinylcholine Inj 100 MG/5 ML Syringe IV.PUSH ONE (12:55)
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
[2018-08-23] MEDS ORDERED: fentaNYL Citrate Inj 100 MCG/2 ML Ampul ONE (14:11)
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
[2018-08-23] MEDS: Melatonin 5 MG Tablet PO SCH (20:19)
[2018-08-24] MEDS: Ketorolac Inj 30 MG/ML (IVP) Vial IV.PUSH SCH ×2 (02:37→09:36)
[2018-08-24] MEDS ORDERED: Pharmacy Ordered Lab Info OTHER ONE (06:45)
[2018-08-24] MEDS: metroNIDAZOLE 500 MG Tablet PO SCH ×4 (06:47→23:58)
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
[2018-08-24] MEDS: Vancomycin Inj 1,500 MG in Sodium Chlor 0.9% Inj 500 ML IV.SIG SCH (07:00)
[2018-08-24 08:13] LABS: Bacteria,Urine Many /hpf; Bilirubin,Urine Negative (Negative); Clarity,Urine Cloudy (Clear); Color,Urine Amber (Yellw/Straw); Glucose,Urine (UA) Negative (Negative); Leukocyte Esterase,Urine Trace (Negative); Nitrite,Urine Negative (Negative); Specific Gravity,Urine 1.009 (1.002-1.035)
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
[2018-08-24] MEDS: Enoxaparin Inj 30 MG/0.3 ML Syringe SQ SCH (09:33)
[2018-08-24] MEDS: Polyethylene Glycol 3350 17 GM Packet PO SCH (09:33)
[2018-08-24] MEDS: Senna/Docusate Sodium 8.6/50 MG Tablet PO SCH ×2 (09:35→20:32)
[2018-08-24] MEDS: Lactobacillus Acidophilus/L. Spores Tablet PO SCH ×3 (09:35→16:59)
[2018-08-24 10:09] LABS: Baso # (Auto) 0.4 th/mm3 (0.0-0.2); Eos # (Auto) 0.2 th/mm3 (0.0-0.4); Eos % (Auto) 0.4 % (0.0-4.0); Hematocrit 36.6 % (39.0-51.0); Hemoglobin 12.6 gm/dL (13.0-17.0); Lymph # (Auto) 1.6 th/mm3 (1.0-4.8); Lymph % (Auto) 3.7 % (9.0-44.0); Mean Corpuscular HGB Conc 34.4 % (32.0-36.0); Mean Corpuscular Hemoglobin 31.3 pg (27.0-34.0); Mean Corpuscular Volume 90.8 fL (80.0-100.0); Mono # (Auto) 1.5 th/mm3 (0.0-0.9); Mono % (Auto) 3.7 % (0.0-8.0); Neut # (Auto) 38.4 th/mm3 (1.8-7.7); Neut % (Auto) 91.2 % (16.0-70.0); Platelet Count 620 th/mm3 (150-450); Red Blood Count 4.03 mil/mm3 (4.50-5.90); Red Cell Distribution Width 15.2 % (11.6-17.2); White Blood Count 42.1 th/mm3 (4.0-11.0)
[2018-08-24 10:44] LABS: Alanine Aminotransferase 47 U/L (12-78); Alkaline Phosphatase 123 U/L (45-117); Anion Gap 8 meq/L (5-15); Aspartate Aminotransferase 152 U/L (15-37); Blood Urea Nitrogen 37 mg/dL (7-18); Carbon Dioxide 26.6 meq/L (21.0-32.0); Chloride 99 meq/L (98-107); Glomerular Filtration Rate 27 mL/min (>89); Glucose,Random 125 mg/dL (74-106); Potassium 4.5 meq/L (3.5-5.1); Sodium 134 meq/L (136-145); Total Protein 6.9 g/dL (6.4-8.2); Vancomycin,Trough 46.4 mcg/mL (5.0-10.0)
[2018-08-24 10:52] LABS: Eosinophils 1 % (0-4); Lymphocytes 1 % (9-44); Monocytes 1 % (0-8); Platelet Morphology Normal (Normal)
[2018-08-24 10:53] LABS: Toxic Granulation 1+; Toxic Vacuolation Present
[2018-08-24] MEDS: Sodium Chloride 0.9% 2 ML Flush BID IV.FLUSH SCH ×2 (11:37→20:33)
[2018-08-24] MEDS: levoFLOXacin 750 MG Tablet PO SCH (12:02)
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
[2018-08-24] MEDS: Morphine Inj 4 MG/ML Vial IV.PUSH PRN ×3 (17:34→23:58)
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
[2018-08-24] MEDS: Melatonin 5 MG Tablet PO SCH (20:32)
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
[2018-08-25 04:27] LABS: Baso # (Auto) 0.3 th/mm3 (0.0-0.2); Baso % (Auto) 1.4 % (0.0-2.0); Eos # (Auto) 0.5 th/mm3 (0.0-0.4); Hematocrit 33.5 % (39.0-51.0); Hemoglobin 11.2 gm/dL (13.0-17.0); Lymph # (Auto) 1.7 th/mm3 (1.0-4.8); Lymph % (Auto) 7.4 % (9.0-44.0); Mean Corpuscular HGB Conc 33.5 % (32.0-36.0); Mean Corpuscular Hemoglobin 30.3 pg (27.0-34.0); Mean Corpuscular Volume 90.4 fL (80.0-100.0); Mean Platelet Volume 6.7 fL (7.0-11.0); Mono # (Auto) 1.8 th/mm3 (0.0-0.9); Mono % (Auto) 7.8 % (0.0-8.0); Neut # (Auto) 18.9 th/mm3 (1.8-7.7); Neut % (Auto) 81.4 % (16.0-70.0); Platelet Count 536 th/mm3 (150-450); Red Blood Count 3.71 mil/mm3 (4.50-5.90); White Blood Count 23.2 th/mm3 (4.0-11.0)
[2018-08-25 05:01] LABS: Carbon Dioxide 30.3 meq/L (21.0-32.0); Potassium 5.5 meq/L (3.5-5.1)
[2018-08-25] MEDS: metroNIDAZOLE 500 MG Tablet PO SCH ×4 (05:29→23:46)
[2018-08-25] MEDS: Morphine Inj 4 MG/ML Vial IV.PUSH PRN ×4 (05:41→23:49)
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
[2018-08-25] MEDS: Sodium Chloride 0.9% 2 ML Flush BID IV.FLUSH SCH ×2 (09:49→20:22)
[2018-08-25] MEDS: Senna/Docusate Sodium 8.6/50 MG Tablet PO SCH ×2 (09:51→20:31)
[2018-08-25] MEDS: Polyethylene Glycol 3350 17 GM Packet PO SCH (09:51)
[2018-08-25] MEDS: Lactobacillus Acidophilus/L. Spores Tablet PO SCH ×3 (09:51→17:44)
[2018-08-25] MEDS: levoFLOXacin 750 MG Tablet PO SCH (10:03)
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
--- NOTE | 2018-08-25 11:15 | P.PNURO ---
Subjective Patient symptoms today: CT scan reviewed, no significant findings. No obstructing ureteral stones. has a small renal stone. otherwise normal CT from urology stand point. He has other findings that needs to be addressed by primary teams. Leukocytosis is geting better. ID involved. Cr is still elevated. UC is still pending UTI as a source of hematuria is not excluded. Objective Vital Signs: Vital Signs 08/24/18 12:00 08/24/18 19:15 08/24/18 20:00 Temperature 97.3 F L 97.9 F Pulse Rate 117 H 107 H Respiratory Rate 18 18 17 Blood Pressure 116/57 L 110/68 Pulse Oximetry 94 L 96 08/24/18 20:41 08/24/18 23:19 08/25/18 00:00 Temperature 97.6 F Pulse Rate 114 H Respiratory Rate 17 16 16 Blood Pressure 109/58 L Pulse Oximetry 94 L 08/25/18 04:45 08/25/18 05:43 08/25/18 10:19 Temperature Pulse Rate Respiratory Rate 16 17 18 Blood Pressure Pulse Oximetry Intake & Output 08/24/18 08/25/18 08/25/18 18:59 06:59 18:59 Intake Total 1400 / 1400 1540 / 1540 Output Total 341 / 341 975 / 975 Balance 1059 / 1059 565 / 565 Weight 62.8 kg Intake: IV 100 / 100 100 / 100 Maxipime Inj 2,000 MG In NS Inj 100 / 100 100 ML @ 200 mls/hr IV.SIG Q12H CES[facility] Rx#:[id number] Mycamine Inj 100 MG In NS Inj 100 / 100 100 ML @ 100 mls/hr IV.SIG Q24H C[facility] Rx#:[id number] Oral 1300 / 1300 1440 / 1440 Output: Urine 300 / 300 975 / 975 Wound Drainage 15 Right Posterior Chest Chest Tube Drainage #2 Left Mid-Axillary Chest Other: # Voids 2 Result Diagrams: 08/25/18 04:11 08/25/18 04:11 Imaging: Impressions Abdomen/Pelvis CT 08/24/18 00:00 CONCLUSION: 1. Nonobstructing right renal calculi again identified. The kidneys are otherwise unremarkable. 2. Elongated fluid collection again noted in the right lobe of the liver without significant change. 3. Bilateral pleural fluid collections with air-fluid levels left greater than right. This remains of concern for possible empyemas. 4. Cholelithiasis with multiple calcified gallstones. Chest X-Ray 08/25/18 00:00 CONCLUSION: Chest tube removal without pneumothorax Medications and IVs: Active Medications Generic Name Dose Route Start Last Admin Trade Name Freq PRN Reason Stop Dose Admin Acetaminophen 650 mg 08/19/18 06:57 08/20/18 20:29 Tylenol PO 650 mg Q4H PRN Administration TEMPERATURE > 101 F Albuterol 1 ampul 08/05/18 09:10 08/14/18 23:43 Duoneb Neb (Prn) NEB 1 ampul Q2HR NEB PRN Administration SHORTNESS OF BREATH Cyclobenzaprine HCl 5 mg 08/22/18 06:30 08/25/18 05:29 Flexeril PO 5 mg Q8HR CESILIA Administration Enalaprilat 1.25 mg 08/05/18 08:59 Vasotec Inj IV.PUSH Q8H PRN Blood pressure 180/95 Sodium Phosphate 30 mmol/ 260 mls @ 42 mls/hr 08/05/18 09:06 Sodium Chloride IV.SIG UNSCH PRN For Phosphorus < 2.5 mg/dL Micafungin Sodium 100 mg/ 100 mls @ 100 mls/hr 08/23/18 14:00 08/24/18 16:10 Sodium Chloride IV.SIG Infused Q24H C[facility]IA Infusion Cefepime HCl 1,000 mg/ Sodium 100 mls @ 200 mls/hr 08/25/18 20:00 Chloride IV.SIG Q12H C[facility]IA Lactobacillus Acidophilus 1 tab 08/21/18 09:00 08/25/18 09:51 Lactinex PO 1 tab TID CES[facility]IA Administration Lactulose 30 ml 08/22/18 06:16 Lactulose Liq PO DAILY PRN CONSTIPATION Levofloxacin 750 mg 08/27/18 09:00 Levaquin PO Q48H CESILIA Linezolid 600 mg 08/25/18 12:00 Zyvox PO Q12HR CESILIA Melatonin 5 mg 08/22/18 21:00 08/24/18 20:32 Melatonin PO 5 mg HS CESILIA Administration Metronidazole 500 mg 08/17/18 12:00 08/25/18 11:03 Flagyl PO 500 mg Q6HR CESILIA Administration Miscellaneous 1 each 08/21/18 10:53 Pill Splitter OTHER UNSCH PRN SEE LABEL COMMENTS Morphine Sulfate 4 mg 08/21/18 14:09 08/25/18 05:41 Morphine Inj IV.PUSH 4 mg Q3H PRN Administration BREAKTHROUGH PAIN Ondansetron HCl 4 mg 08/05/18 08:59 08/14/18 08:08 Zofran Inj IV.PUSH 4 mg Q6H PRN Administration NAUSEA OR VOMITING Oxycodone HCl 10 mg 08/18/18 16:58 08/25/18 09:49 Roxicodone PO 10 mg Q4H PRN Administration PAIN SCALE 6 TO 10 Oxycodone HCl 5 mg 08/18/18 16:58 Roxicodone PO Q4H PRN PAIN SCALE 3 TO 5 Polyethylene Glycol 17 gm 08/22/18 09:00 08/25/18 09:51 Miralax PO 17 gm DAILY CESILIA Administration Senna/Docusate Sodium 1 tab 08/22/18 09:00 08/25/18 09:51 Aby-Colace PO 1 tab BID CESILIA Administration Sodium Chloride 2 ml 08/05/18 21:00 08/25/18 09:49 Ns Flush IV.FLUSH 2 ml BID C[facility]IA Administration Sodium Chloride 2 ml 08/05/18 18:33 08/21/18 01:16 Ns Flush IV.FLUSH 2 ml PRN PRN Administration FLUSH AFTER USING IV ACCESS Tamsulosin HCl 0.4 mg 08/24/18 15:30 08/25/18 09:51 Flomax PO 0.4 mg DAILY CESILIA Administration Assessment and Plan - Plan 30y.o m with history as per HPI Currently with hematuria, which is resolving - Continue care as per primary team - IV fluids / po fluids - No flomax needed now since no retention or obstructing stones on CT - Continue care as per ID, follow up on final UC results - Consult Nephrology for other causes of elevated Cr No additional intervention needed.
[2018-08-25 13:03] LABS: Bacteria,Urine Rare /hpf; Bilirubin,Urine Negative (Negative); Clarity,Urine Clear (Clear); Color,Urine Yellow (Yellw/Straw); Glucose,Urine (UA) Negative (Negative); Leukocyte Esterase,Urine Negative (Negative); Mucus,Urine Few /lpf (Occasional); Nitrite,Urine Negative (Negative); Specific Gravity,Urine 1.006 (1.002-1.035)
[2018-08-25] MEDS: Linezolid 600 MG Tablet PO SCH ×2 (14:32→20:22)
[2018-08-25] MEDS: Melatonin 5 MG Tablet PO SCH (20:22)
[2018-08-26 04:38] LABS: Baso # (Auto) 0.1 th/mm3 (0.0-0.2); Baso % (Auto) 0.3 % (0.0-2.0); Eos # (Auto) 0.3 th/mm3 (0.0-0.4); Eos % (Auto) 1.3 % (0.0-4.0); Hematocrit 33.3 % (39.0-51.0); Hemoglobin 11.3 gm/dL (13.0-17.0); Lymph % (Auto) 10.5 % (9.0-44.0); Mean Corpuscular HGB Conc 34.1 % (32.0-36.0); Mean Corpuscular Hemoglobin 30.6 pg (27.0-34.0); Mean Platelet Volume 7.3 fL (7.0-11.0); Mono # (Auto) 1.7 th/mm3 (0.0-0.9); Mono % (Auto) 9.1 % (0.0-8.0); Neut % (Auto) 78.8 % (16.0-70.0); Platelet Count 525 th/mm3 (150-450); Red Cell Distribution Width 14.6 % (11.6-17.2)
[2018-08-26 05:14] LABS: Calcium 8.7 mg/dL (8.5-10.1); Carbon Dioxide 27.5 meq/L (21.0-32.0); Vancomycin,Random 18.2 Comment
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
[2018-08-26] MEDS: metroNIDAZOLE 500 MG Tablet PO SCH ×4 (05:31→23:39)
[2018-08-26] MEDS: Senna/Docusate Sodium 8.6/50 MG Tablet PO SCH ×2 (10:33→21:07)
[2018-08-26] MEDS: Linezolid 600 MG Tablet PO SCH ×2 (10:34→21:07)
[2018-08-26] MEDS: Polyethylene Glycol 3350 17 GM Packet PO SCH (10:34)
[2018-08-26] MEDS: Lactobacillus Acidophilus/L. Spores Tablet PO SCH ×3 (10:34→17:16)
[2018-08-26] MEDS: Sodium Chloride 0.9% 2 ML Flush BID IV.FLUSH SCH ×2 (10:35→21:08)
[2018-08-26] MEDS: Morphine Inj 4 MG/ML Vial IV.PUSH PRN (13:00)
[2018-08-26] MEDS: Sodium Chloride 0.9% 2 ML Flush PRN IV.FLUSH (13:02)
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
[2018-08-26] MEDS: Melatonin 5 MG Tablet PO SCH (21:07)
[2018-08-26] MEDS: Chlorhexidine 4% Topical 120 APPLIC/120 ML Bottle TOPICAL SCH ×2 (21:08→23:37)
[2018-08-27] MEDS: Morphine Inj 4 MG/ML Vial IV.PUSH PRN ×2 (03:57→20:44)
[2018-08-27] MEDS: metroNIDAZOLE 500 MG Tablet PO SCH ×3 (06:06→17:35)
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
[2018-08-27] MEDS ORDERED: levoFLOXacin 750 MG Tablet PO SCH (09:00)
[2018-08-27] MEDS: Lactobacillus Acidophilus/L. Spores Tablet PO SCH ×3 (09:36→17:35)
[2018-08-27] MEDS: Linezolid 600 MG Tablet PO SCH ×2 (09:36→20:42)
[2018-08-27] MEDS: Senna/Docusate Sodium 8.6/50 MG Tablet PO SCH ×2 (09:36→20:42)
[2018-08-27] MEDS: Polyethylene Glycol 3350 17 GM Packet PO SCH (09:36)
[2018-08-27] MEDS: Sodium Chloride 0.9% 2 ML Flush BID IV.FLUSH SCH ×2 (09:40→20:43)
[2018-08-27] MEDS: Chlorhexidine 4% Topical 120 APPLIC/120 ML Bottle TOPICAL SCH ×2 (10:42→20:58)
[2018-08-27] MEDS: Melatonin 5 MG Tablet PO SCH (20:42)
[2018-08-27] MEDS: Enoxaparin Inj 30 MG/0.3 ML Syringe SQ SCH (20:58)
[2018-08-28] MEDS: metroNIDAZOLE 500 MG Tablet PO SCH ×5 (00:02→22:39)
[2018-08-28 04:34] LABS: Baso # (Auto) 0.2 th/mm3 (0.0-0.2); Baso % (Auto) 1.1 % (0.0-2.0); Eos # (Auto) 0.2 th/mm3 (0.0-0.4); Hematocrit 31.6 % (39.0-51.0); Lymph # (Auto) 1.6 th/mm3 (1.0-4.8); Lymph % (Auto) 8.7 % (9.0-44.0); Mean Corpuscular HGB Conc 34.9 % (32.0-36.0); Mean Corpuscular Hemoglobin 30.8 pg (27.0-34.0); Mean Corpuscular Volume 88.3 fL (80.0-100.0); Mean Platelet Volume 6.9 fL (7.0-11.0); Mono # (Auto) 1.3 th/mm3 (0.0-0.9); Mono % (Auto) 7.1 % (0.0-8.0); Neut % (Auto) 82.1 % (16.0-70.0); Platelet Count 499 th/mm3 (150-450); Red Blood Count 3.58 mil/mm3 (4.50-5.90); Red Cell Distribution Width 14.6 % (11.6-17.2); White Blood Count 18.2 th/mm3 (4.0-11.0)
[2018-08-28 04:51] LABS: Calcium 8.5 mg/dL (8.5-10.1); Carbon Dioxide 27.3 meq/L (21.0-32.0)
[2018-08-28] MEDS: Morphine Inj 4 MG/ML Vial IV.PUSH PRN ×3 (05:19→22:36)
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
[2018-08-28] MEDS: Lactobacillus Acidophilus/L. Spores Tablet PO SCH ×3 (09:49→18:18)
[2018-08-28] MEDS: Enoxaparin Inj 30 MG/0.3 ML Syringe SQ SCH ×2 (09:49→21:05)
[2018-08-28] MEDS: Linezolid 600 MG Tablet PO SCH ×2 (09:50→21:05)
[2018-08-28] MEDS: Senna/Docusate Sodium 8.6/50 MG Tablet PO SCH ×2 (09:50→21:21)
[2018-08-28] MEDS: Polyethylene Glycol 3350 17 GM Packet PO SCH (09:51)
[2018-08-28] MEDS: Sodium Chloride 0.9% 2 ML Flush BID IV.FLUSH SCH ×2 (09:51→21:08)
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
[2018-08-28] MEDS: Chlorhexidine 4% Topical 120 APPLIC/120 ML Bottle TOPICAL SCH ×2 (12:02→21:21)
[2018-08-28] MEDS ORDERED: Sodium Hypochlorite 0.125% Top Soln 500 ML Bottle IRRIGATION PRN (15:20)
[2018-08-28] MEDS: Collagenase Oint 30 GM Tube TOPICAL SCH ×2 (17:16→18:19)
[2018-08-28] MEDS: Melatonin 5 MG Tablet PO SCH (21:05)
[2018-08-29] MEDS: metroNIDAZOLE 500 MG Tablet PO SCH ×5 (00:30→23:10)
[2018-08-29] MEDS: Morphine Inj 4 MG/ML Vial IV.PUSH PRN ×3 (05:44→23:10)
[2018-08-29 07:57] LABS: Albumin 2.3 g/dL (3.4-5.0); Calcium 9.1 mg/dL (8.5-10.1); Carbon Dioxide 29.8 meq/L (21.0-32.0); Phosphorus 4.7 mg/dL (2.5-4.9); Potassium 5.1 meq/L (3.5-5.1)
[2018-08-29] MEDS: Lactobacillus Acidophilus/L. Spores Tablet PO SCH ×3 (08:22→17:39)
[2018-08-29] MEDS: Linezolid 600 MG Tablet PO SCH ×2 (08:22→21:52)
[2018-08-29] MEDS: Polyethylene Glycol 3350 17 GM Packet PO SCH (08:22)
[2018-08-29] MEDS: Senna/Docusate Sodium 8.6/50 MG Tablet PO SCH ×2 (08:22→21:53)
[2018-08-29] MEDS: Chlorhexidine 4% Topical 120 APPLIC/120 ML Bottle TOPICAL SCH ×3 (08:23→21:53)
[2018-08-29] MEDS: Enoxaparin Inj 30 MG/0.3 ML Syringe SQ SCH ×2 (08:23→21:53)
[2018-08-29] MEDS: Collagenase Oint 30 GM Tube TOPICAL SCH ×2 (08:33→19:41)
[2018-08-29] MEDS: Sodium Chloride 0.9% 2 ML Flush BID IV.FLUSH SCH ×2 (08:33→21:54)
--- NOTE | 2018-08-29 09:55 | P.PNNP ---
Subjective Interval history: Resting comfortably with no complaints. Denies any shortness of breath, nausea , or vomiting. Creatinine has improved at 2.63 today. <Felecia Sofia - Last Filed: 08/29/18 15:20> Physical Exam Vital signs: Vital Signs 08/28/18 12:00 08/28/18 16:00 08/28/18 20:00 Temperature 98.2 F 97.7 F 98.1 F Pulse Rate 110 H 106 H 87 Respiratory Rate 18 20 18 Blood Pressure 125/83 131/65 132/80 Pulse Oximetry 96 98 95 08/28/18 23:47 08/29/18 01:06 Temperature 97.8 F Pulse Rate 109 H Respiratory Rate 18 18 Blood Pressure 124/83 Pulse Oximetry 96 Intake & Output 08/28/18 08/29/18 08/29/18 18:59 06:59 18:59 Intake Total 100 / 100 1400 / 1400 Output Total 1175 / 1175 Balance 100 / 100 225 / 225 Weight 61.5 kg Intake: IV 100 / 100 200 / 200 Maxipime Inj 1,000 MG In NS Inj 100 / 100 100 / 100 100 ML @ 200 mls/hr IV.SIG Q12H [facility] Rx#:[id number] Mycamine Inj 100 MG In NS Inj 100 / 100 100 ML @ 100 mls/hr IV.SIG Q24H [facility] Rx#:[id number] Oral 1200 / 1200 Output: Urine 1175 / 1175 Other: Date of Last Bowel Movement 08/26/18 08/28/18 Narrative: GENERAL: Alert and oriented, in no acute distress. SKIN: Warm and dry and intact. ENT: No nasal bleeding or discharge. Mucous membranes pink and moist. CARDIOVASCULAR: Regular rate and rhythm. RESPIRATORY: No accessory muscle use. Lungs are clear to auscultation bilaterally. Old CT dressings CDI. GASTROINTESTINAL: Abdomen soft, mild tenderness to palpation, nondistended. Midline abdominal incision -dressing with drainage noted. MUSCULOSKELETAL: Extremities without cyanosis, or edema. Positive peripheral pulses x4 extremities. NEUROLOGICAL: Awake and alert. Normal speech. Pt is pleasant and cooperative. - Urinary Catheter Management Indwelling Urethral Catheter Cath placed during this visit: yes, but has since been removed by the nurse Reason for continuing: Decision to DC catheter Insertion date: 08/09/18 Removal date: 08/14/18 Removal time: 16:00 Straight Cath placed during this visit: no 1 Cath placed during this visit: yes, but has since been removed by the nurse Reason for continuing: Acute urinary retention Insertion date: 08/09/18 Insertion time: 19:00 Removal date: 08/09/18 Removal time: 06:00 <Felecia Sofia - Last Filed: 08/29/18 15:20> Vital signs: Vital Signs 08/29/18 20:00 08/30/18 00:00 08/30/18 00:28 Temperature 97.8 F 97.7 F Pulse Rate 108 H 108 H Respiratory Rate 18 19 19 Blood Pressure 129/84 134/88 Pulse Oximetry 97 98 08/30/18 16:00 Temperature 97.6 F Pulse Rate 101 H Respiratory Rate 17 Blood Pressure 123/85 Pulse Oximetry 96 Intake & Output 08/29/18 08/30/18 08/30/18 18:59 06:59 18:59 Intake Total 200 / 200 1515 / 1515 200 / 200 Output Total 1540 / 1540 1100 / 1100 Balance -1340 / -1340 415 / 415 200 / 200 Weight 61.5 kg Intake: IV 200 / 200 615 / 615 200 / 200 Maxipime Inj 1,000 MG In NS Inj 100 / 100 100 / 100 100 / 100 100 ML @ 200 mls/hr IV.SIG Q12H [facility] Rx#:[id number] Mycamine Inj 100 MG In NS Inj 100 / 100 100 / 100 100 ML @ 100 mls/hr IV.SIG Q24H [facility] Rx#:[id number] Oral 900 / 900 Output: Urine 1540 / 1540 1100 / 1100 Other: Date of Last Bowel Movement 08/28/18 - Urinary Catheter Management Indwelling Urethral Catheter Cath placed during this visit: no Straight Cath placed during this visit: no 1 Cath placed during this visit: no <Sofia Tong - Last Filed: 08/30/18 18:14> Assessment and Plan - Assessment (1) Acute kidney injury Code(s): N17.9 - Acute kidney failure, unspecified Status: Acute Plan: Acute kidney injury with a creatinine fo 2.94 and potassium level of 5 No previous history of kidney disease Creatinine noted to increase on 08/24 and vancomycin through level was elevated at 46.4 Most likely acute 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 Urine negative for proteinuria Ct of abdomen with nonobstructing right renal calculi. The kidneys are otherwise unremarkable Recommend to avoid nephrotoxins. Will monitor urinary output and BMP Electrolytes and fluid balance stable Creatinine starting to improve at 2.64, will continue to monitor. <Felecia Sofia - Last Filed: 08/29/18 15:20> - Assessment (1) Acute kidney injury Code(s): N17.9 - Acute kidney failure, unspecified Status: Acute Plan: Patient seen and examined, agree with above. Creatinine is improving, Most likely has BETH due to Vanco. toxicity and ATN. <Sofia Tong - Last Filed: 08/30/18 18:14>
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
--- NOTE | 2018-08-29 17:21 | P.PNWCN ---
Wound Care Nurse Consult Description: Received consult for wound management of Abdominal wound with 2 dehisced areas need wound care management and recommendations. Communicated with: RN Kaleigh son and SRAVAN Dixon Recommendation: DRESSING IS NOW DAILY and PRN. Wash daily with soap and water -recommend shower. Additionally scrub with Hibiclens daily. Apply santyl to open/dehissed areas of abdominal incision. GENTLY pack open areas with Dakins 0.125% moistened 2x2, and Apply dry dressing (primapore) after cleansing daily. Incision - Incision Abdominal incision line Incision Assessment: Ongoing Incision Type: Incision Incision Description: Dehiscence (Dehisced in two places ) Incision Bed Appearance: Yellow Surrounding Tissue Appearance: [place] Surrounding Tissue Temperature: Cool Drainage Description: Serosanguinous Drainage Amount: Scant Drainage Odor: No Odor Incision Dressing Status: Changed Incision Cleaning Solution: Saline Topical: Enzymatic Debridement Ointment Incision Packing Type: Gauze Pads (moistened 2x2s) Cover Dressing: Other (Bordered gauze) Incision Dressing Change Date: 08/29/18 - Additional Information Patient seen for wound management of 2 dehisced areas with in abdominal incision line. Removed bordered gauze in place to medial abdomen to reveal incision line that is well approximated with scar tissue with the exception of two areas that are dehisced. Proximal dehiscence measures 1cm x 1cm x ~1cm with sutures, and 100% slough in wound base, that is moist. Dehiscence that is more distal measures ~1cm x ~2cm x ~0.6cm with 100% slough in wound base. Periwound is unremarkable. Dehisced areas were cleansed with normal saline and patted dry. applied Santyl jin thickness to wound bed and loosely packed saline moistened 2x2 gauze to wound bed and covered with bordered gauze. Patient tolerated dressing change and wound assessment well.
[2018-08-29] MEDS: Melatonin 5 MG Tablet PO SCH (21:52)
[2018-08-30] MEDS: metroNIDAZOLE 500 MG Tablet PO SCH ×4 (05:23→23:40)
[2018-08-30] MEDS: Morphine Inj 4 MG/ML Vial IV.PUSH PRN ×3 (05:24→21:23)
[2018-08-30 06:53] LABS: Albumin 2.2 g/dL (3.4-5.0); Calcium 8.9 mg/dL (8.5-10.1); Carbon Dioxide 25.6 meq/L (21.0-32.0); Phosphorus 4.3 mg/dL (2.5-4.9); Potassium 4.1 meq/L (3.5-5.1)
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
[2018-08-30] MEDS: Acetaminophen 325 MG Tablet PO PRN (09:51)
[2018-08-30] MEDS: Linezolid 600 MG Tablet PO SCH ×2 (09:53→21:22)
[2018-08-30] MEDS: Lactobacillus Acidophilus/L. Spores Tablet PO SCH ×3 (09:53→19:25)
[2018-08-30] MEDS: Enoxaparin Inj 30 MG/0.3 ML Syringe SQ SCH ×2 (09:55→21:22)
[2018-08-30] MEDS: Senna/Docusate Sodium 8.6/50 MG Tablet PO SCH ×2 (09:56→21:24)
[2018-08-30] MEDS: Polyethylene Glycol 3350 17 GM Packet PO SCH (09:56)
--- NOTE | 2018-08-30 11:33 | P.PNNP ---
Subjective Interval history: No acute events overnight. Resting comfortably. VSS and afebrile. Creatinine continues to improve at 2.1 today. <Felecia Sofia - Last Filed: 08/30/18 15:18> Physical Exam Vital signs: Vital Signs 08/29/18 12:00 08/29/18 16:00 08/29/18 20:00 Temperature 97.6 F 98.1 F 97.8 F Pulse Rate 108 H 100 H 108 H Respiratory Rate 19 16 18 Blood Pressure 140/89 133/87 129/84 Pulse Oximetry 98 97 97 08/30/18 00:00 08/30/18 00:28 Temperature 97.7 F Pulse Rate 108 H Respiratory Rate 19 19 Blood Pressure 134/88 Pulse Oximetry 98 Intake & Output 08/29/18 08/30/18 08/30/18 18:59 06:59 18:59 Intake Total 200 / 200 1515 / 1515 Output Total 1540 / 1540 1100 / 1100 Balance -1340 / -1340 415 / 415 Weight 61.5 kg Intake: IV 200 / 200 615 / 615 Maxipime Inj 1,000 MG In NS Inj 100 / 100 100 / 100 100 ML @ 200 mls/hr IV.SIG Q12H [facility] Rx#:[id number] Mycamine Inj 100 MG In NS Inj 100 / 100 100 ML @ 100 mls/hr IV.SIG Q24H [facility] Rx#:[id number] Oral 900 / 900 Output: Urine 1540 / 1540 1100 / 1100 Other: Date of Last Bowel Movement 08/28/18 Narrative: GENERAL: Well-nourished, well developed in no acute distress. SKIN: Warm and dry and intact. ENT: No nasal bleeding or discharge. Mucous membranes pink and moist. CARDIOVASCULAR: Regular rate and rhythm. Tachycardia RESPIRATORY: No accessory muscle use. Lungs are clear to auscultation bilaterally. Old CT dressings CDI. GASTROINTESTINAL: Abdomen soft, mild tenderness to palpation, nondistended. Midline abdominal incision -dressing. MUSCULOSKELETAL: Extremities without cyanosis, or edema. Positive peripheral pulses x4 extremities. NEUROLOGICAL: Awake and alert. Normal speech. Pt is pleasant and cooperative. - Urinary Catheter Management Indwelling Urethral Catheter Cath placed during this visit: yes, but has since been removed by the nurse Reason for continuing: Decision to DC catheter Insertion date: 08/09/18 Removal date: 08/14/18 Removal time: 16:00 Straight Cath placed during this visit: no 1 Cath placed during this visit: yes, but has since been removed by the nurse Reason for continuing: Acute urinary retention Insertion date: 08/09/18 Insertion time: 19:00 Removal date: 08/09/18 Removal time: 06:00 <Felecia Sofia - Last Filed: 08/30/18 15:18> Vital signs: Vital Signs 08/29/18 20:00 08/30/18 00:00 08/30/18 00:28 Temperature 97.8 F 97.7 F Pulse Rate 108 H 108 H Respiratory Rate 18 19 19 Blood Pressure 129/84 134/88 Pulse Oximetry 97 98 08/30/18 16:00 Temperature 97.6 F Pulse Rate 101 H Respiratory Rate 17 Blood Pressure 123/85 Pulse Oximetry 96 Intake & Output 08/29/18 08/30/18 08/30/18 18:59 06:59 18:59 Intake Total 200 / 200 1515 / 1515 200 / 200 Output Total 1540 / 1540 1100 / 1100 Balance -1340 / -1340 415 / 415 200 / 200 Weight 61.5 kg Intake: IV 200 / 200 615 / 615 200 / 200 Maxipime Inj 1,000 MG In NS Inj 100 / 100 100 / 100 100 / 100 100 ML @ 200 mls/hr IV.SIG Q12H [facility] Rx#:[id number] Mycamine Inj 100 MG In NS Inj 100 / 100 100 / 100 100 ML @ 100 mls/hr IV.SIG Q24H [facility] Rx#:[id number] Oral 900 / 900 Output: Urine 1540 / 1540 1100 / 1100 Other: Date of Last Bowel Movement 08/28/18 - Urinary Catheter Management Indwelling Urethral Catheter Cath placed during this visit: no Straight Cath placed during this visit: no 1 Cath placed during this visit: no <Sofia Tong - Last Filed: 08/30/18 18:41> Assessment and Plan - Assessment (1) Acute kidney injury Code(s): N17.9 - Acute kidney failure, unspecified Status: Acute Plan: Acute kidney injury with a creatinine fo 2.94 and potassium level of 5 No previous history of kidney disease Creatinine noted to increase on 08/24 and vancomycin through level was elevated at 46.4 Most likely acute 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 Urine negative for proteinuria Ct of abdomen with nonobstructing right renal calculi. The kidneys are otherwise unremarkable Recommend to avoid nephrotoxins. Will monitor urinary output and BMP Electrolytes and fluid balance stable Creatinine improving at 2.1 today, non oliguric. <Felecia Sofia - Last Filed: 08/30/18 15:18> - Assessment (1) Acute kidney injury Code(s): N17.9 - Acute kidney failure, unspecified Status: Acute Plan: Patient seen and examined, agree with above. Creatinine is better, now 2.1. Non Oliguric, follow the urine out put and BMP. <Sofia Tong - Last Filed: 08/30/18 18:41>
[2018-08-30] MEDS: Sodium Chloride 0.9% 2 ML Flush BID IV.FLUSH SCH ×2 (13:45→21:24)
[2018-08-30] MEDS: Chlorhexidine 4% Topical 120 APPLIC/120 ML Bottle TOPICAL SCH ×2 (16:48→21:24)
[2018-08-30] MEDS: Collagenase Oint 30 GM Tube TOPICAL SCH (16:48)
[2018-08-30] MEDS: Melatonin 5 MG Tablet PO SCH (21:23)
[2018-08-31] MEDS: metroNIDAZOLE 500 MG Tablet PO SCH ×4 (05:37→22:52)
[2018-08-31] MEDS: Morphine Inj 4 MG/ML Vial IV.PUSH PRN (05:37)
[2018-08-31 07:37] LABS: Albumin 2.3 g/dL (3.4-5.0); Calcium 9.4 mg/dL (8.5-10.1); Carbon Dioxide 27.8 meq/L (21.0-32.0); Phosphorus 4.1 mg/dL (2.5-4.9); Potassium 4.7 meq/L (3.5-5.1)
[2018-08-31] MEDS: Lactobacillus Acidophilus/L. Spores Tablet PO SCH ×3 (09:48→18:39)
[2018-08-31] MEDS: Linezolid 600 MG Tablet PO SCH ×2 (09:48→22:42)
[2018-08-31] MEDS: Megestrol Acetate Liq 400 MG/10 ML UDC PO SCH (09:51)
[2018-08-31] MEDS: Enoxaparin Inj 30 MG/0.3 ML Syringe SQ SCH ×2 (09:51→22:44)
[2018-08-31] MEDS: Senna/Docusate Sodium 8.6/50 MG Tablet PO SCH ×2 (09:52→22:45)
[2018-08-31] MEDS: Sodium Chloride 0.9% 2 ML Flush PRN IV.FLUSH (09:52)
[2018-08-31] MEDS: Sodium Chloride 0.9% 2 ML Flush BID IV.FLUSH SCH ×2 (09:52→22:45)
[2018-08-31] MEDS: Polyethylene Glycol 3350 17 GM Packet PO SCH (09:52)
[2018-08-31] MEDS: Chlorhexidine 4% Topical 120 APPLIC/120 ML Bottle TOPICAL SCH (09:53)
[2018-08-31] MEDS: Collagenase Oint 30 GM Tube TOPICAL SCH (09:53)
--- NOTE | 2018-08-31 10:27 | P.PNNP ---
Subjective Interval history: Resting comfortably. Denies any shortness of breath, nausea, or vomiting. Reports some rib discomfort with coughing. <Felecia Sofia - Last Filed: 08/31/18 10:24> Physical Exam Vital signs: Vital Signs 08/30/18 16:00 08/30/18 20:00 08/31/18 00:00 Temperature 97.6 F 97.3 F L 97.9 F Pulse Rate 101 H 110 H 113 H Respiratory Rate 17 19 19 Blood Pressure 123/85 141/92 H 130/79 Pulse Oximetry 96 98 96 08/31/18 08:00 Temperature 97.7 F Pulse Rate 98 H Respiratory Rate 17 Blood Pressure 119/74 Pulse Oximetry 95 Intake & Output 08/30/18 08/31/18 08/31/18 18:59 06:59 18:59 Intake Total 200 / 200 2100 / 2100 Output Total 1575 / 1575 Balance 200 / 200 525 / 525 Weight 60.8 kg Intake: IV 200 / 200 100 / 100 Maxipime Inj 1,000 MG In NS Inj 100 / 100 100 / 100 100 ML @ 200 mls/hr IV.SIG Q12H [facility] Rx#:[id number] Mycamine Inj 100 MG In NS Inj 100 / 100 100 ML @ 100 mls/hr IV.SIG Q24H [facility] Rx#:[id number] Oral 1999 Output: Urine 1575 / 1575 Other: Date of Last Bowel Movement 08/30/18 Narrative: GENERAL: Well-nourished, well developed sitting up in bed in no acute distress. SKIN: Warm and dry CARDIOVASCULAR: Tachycardia. Regular rate and rhythm. RESPIRATORY: No accessory muscle use. Lungs are clear to auscultation bilaterally. Old CT dressings CDI. GASTROINTESTINAL: Abdomen soft, mild tenderness to palpation, nondistended. Midline abdominal incision MUSCULOSKELETAL: Extremities without cyanosis, or edema. Positive peripheral pulses x4 extremities. NEUROLOGICAL: Awake and alert. Normal speech. Pt is pleasant and cooperative. - Urinary Catheter Management Indwelling Urethral Catheter Cath placed during this visit: yes, but has since been removed by the nurse Reason for continuing: Decision to DC catheter Insertion date: 08/09/18 Removal date: 08/14/18 Removal time: 16:00 Straight Cath placed during this visit: no 1 Cath placed during this visit: yes, but has since been removed by the nurse Reason for continuing: Acute urinary retention Insertion date: 08/09/18 Insertion time: 19:00 Removal date: 08/09/18 Removal time: 06:00 <Felecia Sofia - Last Filed: 08/31/18 10:24> Vital signs: Vital Signs 09/03/18 19:54 09/03/18 20:00 09/03/18 23:37 Temperature 97.8 F Pulse Rate 93 H Respiratory Rate 17 17 18 Blood Pressure 143/96 H Pulse Oximetry 97 09/04/18 00:00 09/04/18 03:43 09/04/18 08:00 Temperature 98.4 F 97.5 F L Pulse Rate 91 H 100 H Respiratory Rate 16 18 19 Blood Pressure 149/90 H 147/93 H Pulse Oximetry 95 95 09/04/18 12:36 Temperature 97.4 F L Pulse Rate 90 Respiratory Rate 19 Blood Pressure 154/92 H Pulse Oximetry 99 Intake & Output 09/03/18 09/04/18 09/04/18 18:59 06:59 18:59 Intake Total 1920 / 1920 1100 / 1100 2100 / 2100 Output Total 900 / 900 300 / 300 Balance 1920 / 1920 200 / 200 1800 / 1800 Weight 61.4 kg Intake: IV 1200 / 1200 1100 / 1100 100 / 100 LR 1000 mL Inj 1,000 ML @ 100 1000 / 1000 1000 / 1000 mls/hr IV.CONT .Q10H [facility] Rx#: [id number] Maxipime Inj 1,000 MG In NS Inj 100 / 100 100 / 100 100 / 100 100 ML @ 200 mls/hr IV.SIG Q12H [facility] Rx#:[id number] Mycamine Inj 100 MG In NS Inj 100 / 100 100 ML @ 100 mls/hr IV.SIG Q24H [facility] Rx#:[id number] Oral 720 / 720 Anesthesia Amount 2000 / 2000 Output: Urine 900 / 900 Estimated Blood Loss 300 / 300 Other: # Voids 4 Date of Last Bowel Movement 09/03/18 - Urinary Catheter Management Indwelling Urethral Catheter Cath placed during this visit: no Straight Cath placed during this visit: no 1 Cath placed during this visit: no <Sofia Tong - Last Filed: 09/04/18 18:32> Assessment and Plan - Assessment (1) Acute kidney injury Code(s): N17.9 - Acute kidney failure, unspecified Status: Acute Plan: Acute kidney injury with a creatinine fo 2.94 and potassium level of 5 No previous history of kidney disease Creatinine noted to increase on 08/24 and vancomycin through level was elevated at 46.4 Most likely acute 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 Urine negative for proteinuria Ct of abdomen with nonobstructing right renal calculi. The kidneys are otherwise unremarkable Recommend to avoid nephrotoxins. Will monitor urinary output and BMP Electrolytes and fluid balance stable Creatinine improving at 2.04 today, non oliguric. Fluids encouraged. <Felecia Sofia - Last Filed: 08/31/18 10:24> - Assessment (1) Acute kidney injury Code(s): N17.9 - Acute kidney failure, unspecified Status: Acute Plan: Patient seen and examined after the surgery, agree with above. Creatinine is improving. <Sofia Tong - Last Filed: 09/04/18 18:32>
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
[2018-08-31] MEDS: Melatonin 5 MG Tablet PO SCH (22:42)
[2018-09-01] MEDS: metroNIDAZOLE 500 MG Tablet PO SCH ×5 (00:48→17:48)
[2018-09-01 04:36] LABS: Baso # (Auto) 0.2 th/mm3 (0.0-0.2); Baso % (Auto) 1.2 % (0.0-2.0); Eos # (Auto) 0.2 th/mm3 (0.0-0.4); Eos % (Auto) 1.7 % (0.0-4.0); Hematocrit 30.3 % (39.0-51.0); Hemoglobin 10.4 gm/dL (13.0-17.0); Lymph # (Auto) 2.2 th/mm3 (1.0-4.8); Lymph % (Auto) 17.1 % (9.0-44.0); Mean Corpuscular HGB Conc 34.3 % (32.0-36.0); Mean Corpuscular Hemoglobin 30.5 pg (27.0-34.0); Mean Corpuscular Volume 88.9 fL (80.0-100.0); Mean Platelet Volume 6.7 fL (7.0-11.0); Mono # (Auto) 1.4 th/mm3 (0.0-0.9); Mono % (Auto) 10.8 % (0.0-8.0); Neut # (Auto) 8.9 th/mm3 (1.8-7.7); Neut % (Auto) 69.2 % (16.0-70.0); Platelet Count 462 th/mm3 (150-450); Red Blood Count 3.41 mil/mm3 (4.50-5.90); Red Cell Distribution Width 14.3 % (11.6-17.2); White Blood Count 12.9 th/mm3 (4.0-11.0)
[2018-09-01 05:01] LABS: Calcium 8.3 mg/dL (8.5-10.1); Carbon Dioxide 29.3 meq/L (21.0-32.0); Potassium 4.1 meq/L (3.5-5.1)
[2018-09-01] MEDS: Lactobacillus Acidophilus/L. Spores Tablet PO SCH ×3 (08:57→17:48)
[2018-09-01] MEDS: Enoxaparin Inj 30 MG/0.3 ML Syringe SQ SCH ×2 (08:57→21:42)
[2018-09-01] MEDS: Megestrol Acetate Liq 400 MG/10 ML UDC PO SCH (08:57)
[2018-09-01] MEDS: Polyethylene Glycol 3350 17 GM Packet PO SCH (08:58)
[2018-09-01] MEDS: Sodium Chloride 0.9% 2 ML Flush BID IV.FLUSH SCH ×2 (08:58→21:50)
[2018-09-01] MEDS: Senna/Docusate Sodium 8.6/50 MG Tablet PO SCH ×2 (08:58→21:50)
[2018-09-01] MEDS: Linezolid 600 MG Tablet PO SCH ×2 (08:59→21:43)
--- NOTE | 2018-09-01 10:25 | P.PNNP ---
Subjective Interval history: No acute events overnight. Denies any shortness of breath, chest pain, or vomiting. Has some nausea. Creatinine is stable at 1.7. <BismarkFelecia - Last Filed: 09/01/18 10:21> Physical Exam Vital signs: Vital Signs 08/31/18 12:00 08/31/18 16:00 08/31/18 20:00 Temperature 97.7 F 97.7 F 98.3 F Pulse Rate 111 H 108 H 114 H Respiratory Rate 18 17 20 Blood Pressure 128/87 131/72 142/74 H Pulse Oximetry 95 97 95 09/01/18 02:15 09/01/18 08:00 Temperature 97.7 F Pulse Rate 107 H Respiratory Rate 18 17 Blood Pressure 132/76 Pulse Oximetry 96 Intake & Output 08/31/18 09/01/18 09/01/18 18:59 06:59 18:59 Intake Total 1700 / 1700 100 / 100 100 / 100 Output Total 900 / 900 Balance 1700 / 1700 -800 / -800 100 / 100 Weight 61.8 kg Intake: IV 200 / 200 100 / 100 100 / 100 Maxipime Inj 1,000 MG In NS Inj 100 / 100 100 / 100 100 / 100 100 ML @ 200 mls/hr IV.SIG Q12H [facility] Rx#:[id number] Mycamine Inj 100 MG In NS Inj 100 / 100 100 ML @ 100 mls/hr IV.SIG Q24H [facility] Rx#:[id number] Oral 1500 / 1500 Output: Urine 900 / 900 Other: # Voids 5 Date of Last Bowel Movement 08/30/18 08/31/18 # Bowel Movements 2 1 Narrative: GENERAL: Well-nourished, well developed sitting up in bed in no acute distress. SKIN: Warm and dry CARDIOVASCULAR: Tachycardia. Regular rate and rhythm. RESPIRATORY: No accessory muscle use. Lungs are clear to auscultation bilaterally. Old CT dressings CDI. GASTROINTESTINAL: Abdomen soft, mild tenderness to palpation, nondistended. Midline abdominal incision MUSCULOSKELETAL: Extremities without cyanosis, or edema. Positive peripheral pulses x4 extremities. NEUROLOGICAL: Awake and alert. Normal speech. Pt is pleasant and cooperative. - Urinary Catheter Management Indwelling Urethral Catheter Cath placed during this visit: yes, but has since been removed by the nurse Reason for continuing: Decision to DC catheter Insertion date: 08/09/18 Removal date: 08/14/18 Removal time: 16:00 Straight Cath placed during this visit: no 1 Cath placed during this visit: yes, but has since been removed by the nurse Reason for continuing: Acute urinary retention Insertion date: 08/09/18 Insertion time: 19:00 Removal date: 08/09/18 Removal time: 06:00 <Felecia Sofia - Last Filed: 09/01/18 10:21> Vital signs: Vital Signs 09/03/18 23:37 09/04/18 00:00 09/04/18 03:43 Temperature 98.4 F Pulse Rate 91 H Respiratory Rate 18 16 18 Blood Pressure 149/90 H Pulse Oximetry 95 09/04/18 08:00 09/04/18 12:36 09/04/18 15:02 Temperature 97.5 F L 97.4 F L 97.8 F Pulse Rate 100 H 90 103 H Respiratory Rate 19 19 16 Blood Pressure 147/93 H 154/92 H 143/95 H Pulse Oximetry 95 99 100 09/04/18 15:10 09/04/18 15:15 09/04/18 15:30 Temperature Pulse Rate 99 H 88 Respiratory Rate 16 17 Blood Pressure 148/101 H 126/87 Pulse Oximetry 100 100 100 09/04/18 15:45 09/04/18 16:00 09/04/18 16:15 Temperature Pulse Rate 84 79 89 Respiratory Rate 17 18 18 Blood Pressure 147/96 H 139/90 154/93 H Pulse Oximetry 100 100 100 09/04/18 16:20 09/04/18 16:30 09/04/18 17:15 Temperature 97.9 F 97.8 F Pulse Rate 78 76 Respiratory Rate 18 23 Blood Pressure 136/81 131/98 H Pulse Oximetry 99 100 99 09/04/18 18:00 09/04/18 19:00 Temperature Pulse Rate 88 90 Respiratory Rate 18 20 Blood Pressure Pulse Oximetry 99 99 Intake & Output 09/04/18 09/04/18 09/05/18 06:59 18:59 06:59 Intake Total 1100 / 1100 3200 / 3200 Output Total 900 / 900 680 / 680 Balance 200 / 200 2520 / 2520 Weight 61.4 kg 60.2 kg Intake: IV 1100 / 1100 1200 / 1200 LR 1000 mL Inj 1,000 ML @ 100 1000 / 1000 1000 / 1000 mls/hr IV.CONT .Q10H [facility] Rx#: [id number] Maxipime Inj 1,000 MG In NS Inj 100 / 100 100 / 100 100 ML @ 200 mls/hr IV.SIG Q12H [facility] Rx#:[id number] Mycamine Inj 100 MG In NS Inj 100 / 100 100 ML @ 100 mls/hr IV.SIG Q24H [facility] Rx#:[id number] Anesthesia Amount 2000 / 2000 Output: Urine 900 / 900 Estimated Blood Loss 300 / 300 Urine Amount (Catheter) 190 / 190 Indwelling Urethral Catheter 190 / 190 Chest Tube Drainage 190 / 190 #2 Left Mid-Axillary Chest 60 / 60 Left Mid-Axillary Chest 130 / 130 Other: Date of Last Bowel Movement 09/03/18 09/03/18 # Bowel Movements 0 - Urinary Catheter Management Indwelling Urethral Catheter Cath placed during this visit: no Straight Cath placed during this visit: no 1 Cath placed during this visit: no <Sofia Tong - Last Filed: 09/04/18 20:57> Assessment and Plan - Assessment (1) Acute kidney injury Code(s): N17.9 - Acute kidney failure, unspecified Status: Acute Plan: Acute kidney injury with a creatinine fo 2.94 and potassium level of 5 on day of consult No previous history of kidney disease Creatinine noted to increase on 08/24 and vancomycin through level was elevated at 46.4 Most likely acute 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 Urine negative for proteinuria Ct of abdomen with nonobstructing right renal calculi. The kidneys are otherwise unremarkable Recommend to avoid nephrotoxins. Will monitor urinary output and BMP Electrolytes and fluid balance stable Creatinine continues to improve at 1.7, non oliguric Fluids encouraged. <Felecia Sofia - Last Filed: 09/01/18 10:21> - Assessment (1) Acute kidney injury Code(s): N17.9 - Acute kidney failure, unspecified Status: Acute Plan: Patient seen and examined, agree with above. Creatinine continue to improve. <Sofia Tong - Last Filed: 09/04/18 20:57>
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
[2018-09-01] MEDS: Melatonin 5 MG Tablet PO SCH (21:42)
[2018-09-02] MEDS: metroNIDAZOLE 500 MG Tablet PO SCH ×5 (00:18→23:59)
[2018-09-02] MEDS: Polyethylene Glycol 3350 17 GM Packet PO SCH (08:11)
[2018-09-02] MEDS: Senna/Docusate Sodium 8.6/50 MG Tablet PO SCH ×2 (08:12→21:39)
[2018-09-02] MEDS: Linezolid 600 MG Tablet PO SCH ×2 (08:12→21:39)
[2018-09-02] MEDS: Enoxaparin Inj 30 MG/0.3 ML Syringe SQ SCH ×2 (08:12→21:39)
[2018-09-02] MEDS: Sodium Chloride 0.9% 2 ML Flush BID IV.FLUSH SCH ×2 (08:12→21:40)
[2018-09-02] MEDS: Lactobacillus Acidophilus/L. Spores Tablet PO SCH ×3 (08:12→17:24)
[2018-09-02] MEDS: Megestrol Acetate Liq 400 MG/10 ML UDC PO SCH (08:13)
[2018-09-02] MEDS ORDERED: Simethicone 80 MG Chew Tablet PO ONE (09:15)
--- NOTE | 2018-09-02 11:21 | XR ---
EXAM DATE: 09/02/2018 11:10 AM EST AGE/SEX: 89 years / Male INDICATIONS: Lower abdominal pain. CLINICAL DATA: This is the patient's initial encounter. Patient reports that signs and symptoms have been present for 1 day and indicates a pain score of 9/10. MEDICAL/SURGICAL HISTORY: None. None. COMPARISON: No prior exams available for comparison. FINDINGS: Moderate amount of stool is identified in the right colon. Intestinal gas pattern is otherwise shalini l. There is no evidence of mass effect. Osseous structures are intact. CONCLUSION: Retained stool in the right colon No evidence of obstruction or mass effect. Electronically signed by: Adrian Carter MD 09/02/2018 11:19 AM EST
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
--- NOTE | 2018-09-02 17:25 | P.PNNP ---
Subjective Interval history: Patient is resting feels tired Physical Exam Vital signs: Vital Signs 09/01/18 20:00 09/02/18 00:00 09/02/18 08:00 Temperature 97.9 F 97.8 F 97.8 F Pulse Rate 103 H 106 H 88 Respiratory Rate 20 20 17 Blood Pressure 130/83 125/65 148/96 H Pulse Oximetry 97 94 L 98 09/02/18 12:00 Temperature 97.7 F Pulse Rate 87 Respiratory Rate 17 Blood Pressure 150/101 H Pulse Oximetry 97 Intake & Output 09/01/18 09/02/18 09/02/18 18:59 06:59 18:59 Intake Total 1600 / 1600 100 / 100 100 / 100 Output Total 650 / 650 Balance 1600 / 1600 -550 / -550 100 / 100 Weight 62 kg Intake: IV 200 / 200 100 / 100 100 / 100 Maxipime Inj 1,000 MG In NS Inj 100 / 100 100 / 100 100 / 100 100 ML @ 200 mls/hr IV.SIG Q12H [facility] Rx#:[id number] Mycamine Inj 100 MG In NS Inj 100 / 100 100 ML @ 100 mls/hr IV.SIG Q24H [facility] Rx#:[id number] Oral 1400 / 1400 Output: Urine 650 / 650 Other: # Voids 3 Date of Last Bowel Movement 09/01/18 # Bowel Movements 1 Narrative: GENERAL: Adult well-nourished, well developed male lying in bed in [facility]. SKIN: Warm and dry. ENT: No nasal bleeding or discharge. Mucous membranes pink and moist. Deviated septum noted. CARDIOVASCULAR: Regular rate and rhythm. RESPIRATORY: No accessory muscle use. Lungs clear to auscultation bilaterally. GASTROINTESTINAL: Abdomen soft, non-tender, slightly distended. Midline abdominal incision with dressing C/D/I. MUSCULOSKELETAL: Extremities without cyanosis, or edema. NEUROLOGICAL: Awake and alert. Normal speech - Urinary Catheter Management Indwelling Urethral Catheter Cath placed during this visit: yes, but has since been removed by the nurse Reason for continuing: Decision to DC catheter Insertion date: 08/09/18 Removal date: 08/14/18 Removal time: 16:00 Straight Cath placed during this visit: no 1 Cath placed during this visit: yes, but has since been removed by the nurse Reason for continuing: Acute urinary retention Insertion date: 08/09/18 Insertion time: 19:00 Removal date: 08/09/18 Removal time: 06:00 Assessment and Plan - Assessment (1) Acute kidney injury Code(s): N17.9 - Acute kidney failure, unspecified Status: Acute Plan: Acute kidney injury with a creatinine fo 2.94 and potassium level of 5 on day of consult No previous history of kidney disease Creatinine noted to increase on 08/24 and vancomycin through level was elevated at 46.4 Most likely acute 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 Urine negative for proteinuria Ct of abdomen with nonobstructing right renal calculi. The kidneys are otherwise unremarkable Recommend to avoid nephrotoxins. Will monitor urinary output and BMP Electrolytes and fluid balance stable Creatinine continues to improve at 1.7, non oliguric Fluids encouraged. Last creatinine 1.7 stable from nephrology point of view Dr. Tong To follow-up on Tuesday
[2018-09-02] MEDS: Simethicone 80 MG Chew Tablet PO PRN (17:28)
[2018-09-02] MEDS: Melatonin 5 MG Tablet PO SCH (21:39)
[2018-09-03] MEDS: Simethicone 80 MG Chew Tablet PO PRN ×2 (05:00→16:43)
[2018-09-03] MEDS: metroNIDAZOLE 500 MG Tablet PO SCH ×3 (05:00→17:45)
[2018-09-03] MEDS: Megestrol Acetate Liq 400 MG/10 ML UDC PO SCH (08:30)
[2018-09-03] MEDS: Polyethylene Glycol 3350 17 GM Packet PO SCH (08:31)
[2018-09-03] MEDS: Enoxaparin Inj 30 MG/0.3 ML Syringe SQ SCH (08:32)
[2018-09-03] MEDS: Senna/Docusate Sodium 8.6/50 MG Tablet PO SCH ×3 (08:32→21:00)
[2018-09-03] MEDS: Sodium Chloride 0.9% 2 ML Flush BID IV.FLUSH SCH ×2 (08:32→20:00)
[2018-09-03] MEDS: Lactobacillus Acidophilus/L. Spores Tablet PO SCH ×3 (08:32→17:45)
[2018-09-03] MEDS: Linezolid 600 MG Tablet PO SCH ×3 (08:32→21:00)
[2018-09-03] MEDS ORDERED: Sod Phosphate/Sod Biphosphate (Adult) Enema 133 ML Bottle RECTAL ONE (11:44)
[2018-09-03] MEDS ORDERED: Diatrizoate Meglum/Diatrizoate Sod Liq 9 ML UDC PO ONE (11:45)
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
[2018-09-03] MEDS: Morphine Inj 4 MG/ML Vial IV.PUSH PRN ×4 (12:48→23:35)
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
[2018-09-03] MEDS: Melatonin 5 MG Tablet PO SCH ×2 (20:00→21:00)
[2018-09-04] MEDS: Morphine Inj 4 MG/ML Vial IV.PUSH PRN ×4 (03:41→22:04)
[2018-09-04 04:24] LABS: Baso # (Auto) 0.1 th/mm3 (0.0-0.2); Eos # (Auto) 0.1 th/mm3 (0.0-0.4); Eos % (Auto) 0.7 % (0.0-4.0); Hematocrit 32.3 % (39.0-51.0); Hemoglobin 10.8 gm/dL (13.0-17.0); Lymph # (Auto) 2.4 th/mm3 (1.0-4.8); Lymph % (Auto) 17.3 % (9.0-44.0); Mean Corpuscular HGB Conc 33.6 % (32.0-36.0); Mean Corpuscular Volume 89.1 fL (80.0-100.0); Mean Platelet Volume 6.7 fL (7.0-11.0); Mono # (Auto) 1.2 th/mm3 (0.0-0.9); Mono % (Auto) 8.2 % (0.0-8.0); Neut # (Auto) 10.3 th/mm3 (1.8-7.7); Neut % (Auto) 72.8 % (16.0-70.0); Platelet Count 467 th/mm3 (150-450); Red Blood Count 3.62 mil/mm3 (4.50-5.90); Red Cell Distribution Width 14.3 % (11.6-17.2); White Blood Count 14.2 th/mm3 (4.0-11.0)
[2018-09-04 04:53] LABS: Albumin 2.3 g/dL (3.4-5.0); Anion Gap 6 meq/L (5-15); Aspartate Aminotransferase 16 U/L (15-37); Blood Urea Nitrogen 19 mg/dL (7-18); Calcium 8.7 mg/dL (8.5-10.1); Carbon Dioxide 28.6 meq/L (21.0-32.0); Chloride 99 meq/L (98-107); Glomerular Filtration Rate 48 mL/min (>89); Glucose,Random 94 mg/dL (74-106); Potassium 3.8 meq/L (3.5-5.1); Sodium 134 meq/L (136-145)
[2018-09-04 04:54] LABS: Alanine Aminotransferase 14 U/L (12-78)
[2018-09-04 04:56] LABS: Alkaline Phosphatase 72 U/L (45-117); Total Protein 7.3 g/dL (6.4-8.2)
[2018-09-04] MEDS: metroNIDAZOLE 500 MG Tablet PO SCH ×3 (06:12→11:30)
[2018-09-04] MEDS ORDERED: Chlorhexidine Gluconate 2% 1 Pack (2 Cloths) TOPICAL ONE (08:00)
[2018-09-04] MEDS ORDERED: Metoprolol Tartrate 25 MG Tablet PO ONE (08:00)
[2018-09-04] MEDS ORDERED: Bupivacaine PF 0.25% Inj 30 ML Vial ONE (08:56)
[2018-09-04] MEDS ORDERED: Heparin - SQ 10,000 UNITS/ML Vial ONE (08:56)
[2018-09-04] MEDS: Sodium Chloride 0.9% 2 ML Flush BID IV.FLUSH SCH ×2 (10:38→21:03)
[2018-09-04] MEDS: Lactobacillus Acidophilus/L. Spores Tablet PO SCH ×3 (10:38→18:50)
[2018-09-04] MEDS: Polyethylene Glycol 3350 17 GM Packet PO SCH (10:38)
[2018-09-04] MEDS: Linezolid 600 MG Tablet PO SCH ×2 (10:39→21:02)
[2018-09-04] MEDS: Senna/Docusate Sodium 8.6/50 MG Tablet PO SCH ×2 (10:39→21:02)
[2018-09-04] MEDS ORDERED: fentaNYL Citrate Inj 250 MCG/5 ML Ampul ONE ×2 (11:32→13:06)
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
[2018-09-04] MEDS ORDERED: *HYDROmorphone PF Inj 1 MG/ML Ampul PERIprocedural Use ONLY ONE ×2 (15:16→15:36)
--- NOTE | 2018-09-04 15:22 | P.PNNP ---
Addendum entered and electronically signed by SRAVAN Jackson 09/04/18 16:23: Seen in AM Original Note: Subjective Interval history: Resting with family at bedside. Reports that he has been having nausea and vomiting over the weekend. Creatinine has improved at 1.3 today. <Felecia Sofia - Last Filed: 09/04/18 15:18> Physical Exam Vital signs: Vital Signs 09/03/18 16:00 09/03/18 19:54 09/03/18 20:00 Temperature 97.6 F 97.8 F Pulse Rate 73 93 H Respiratory Rate 18 17 17 Blood Pressure 176/108 H 143/96 H Pulse Oximetry 98 97 09/03/18 23:37 09/04/18 00:00 09/04/18 03:43 Temperature 98.4 F Pulse Rate 91 H Respiratory Rate 18 16 18 Blood Pressure 149/90 H Pulse Oximetry 95 09/04/18 08:00 09/04/18 12:36 Temperature 97.5 F L 97.4 F L Pulse Rate 100 H 90 Respiratory Rate 19 19 Blood Pressure 147/93 H 154/92 H Pulse Oximetry 95 99 Intake & Output 09/03/18 09/04/18 09/04/18 18:59 06:59 18:59 Intake Total 1920 / 1920 1100 / 1100 2100 / 2100 Output Total 900 / 900 300 / 300 Balance 1920 / 1920 200 / 200 1800 / 1800 Weight 61.4 kg Intake: IV 1200 / 1200 1100 / 1100 100 / 100 LR 1000 mL Inj 1,000 ML @ 100 1000 / 1000 1000 / 1000 mls/hr IV.CONT .Q10H [facility] Rx#: [id number] Maxipime Inj 1,000 MG In NS Inj 100 / 100 100 / 100 100 / 100 100 ML @ 200 mls/hr IV.SIG Q12H [facility] Rx#:[id number] Mycamine Inj 100 MG In NS Inj 100 / 100 100 ML @ 100 mls/hr IV.SIG Q24H [facility] Rx#:[id number] Oral 720 / 720 Anesthesia Amount 2000 / 2000 Output: Urine 900 / 900 Estimated Blood Loss 300 / 300 Other: # Voids 4 Date of Last Bowel Movement 09/03/18 Narrative: GENERAL: Alert and oriented. SKIN: Warm and dry. ENT: No nasal bleeding or discharge. Mucous membranes pink and moist. Deviated septum noted. CARDIOVASCULAR: Regular rate and rhythm. RESPIRATORY: No accessory muscle use. Lungs clear to auscultation bilaterally. GASTROINTESTINAL: Abdomen soft, non-tender. Midline abdominal incision with 2 small areas of wound dehiscence at superior end of incision. MUSCULOSKELETAL: Extremities without cyanosis, or edema. NEUROLOGICAL: Awake and alert. Normal speech - Urinary Catheter Management Indwelling Urethral Catheter Cath placed during this visit: yes, but has since been removed by the nurse Reason for continuing: Decision to DC catheter Insertion date: 08/09/18 Removal date: 08/14/18 Removal time: 16:00 Straight Cath placed during this visit: no 1 Cath placed during this visit: yes, but has since been removed by the nurse Reason for continuing: Acute urinary retention Insertion date: 08/09/18 Insertion time: 19:00 Removal date: 08/09/18 Removal time: 06:00 <Felecia Sofia - Last Filed: 09/04/18 15:18> Vital signs: Vital Signs 09/05/18 20:00 09/06/18 00:00 09/06/18 04:00 Temperature 97.9 F 97.1 F L 97.7 F Pulse Rate 92 H 90 93 H Respiratory Rate 16 16 17 Blood Pressure 144/105 H 169/108 H 156/100 H Pulse Oximetry 95 92 L 94 L 09/06/18 08:00 09/06/18 12:00 09/06/18 16:00 Temperature 97.8 F 97.6 F 97.6 F Pulse Rate 95 H 86 99 H Respiratory Rate 20 19 19 Blood Pressure 147/100 H 154/92 H 175/105 H Pulse Oximetry 94 L 96 98 09/06/18 17:28 Temperature Pulse Rate Respiratory Rate 16 Blood Pressure Pulse Oximetry Intake & Output 09/05/18 09/06/18 09/06/18 18:59 06:59 18:59 Intake Total 950 / 950 1500 / 1500 1360 / 1360 Output Total 1000 / 1000 1220 / 1220 400 / 400 Balance -50 / -50 280 / 280 960 / 960 Weight 62.1 kg Intake: IV 950 / 950 1300 / 1300 400 / 400 LR 1000 mL Inj 1,000 ML @ 100 550 / 550 mls/hr IV.CONT .Q10H [facility] Rx#: [id number] Maxipime Inj 1,000 MG In NS Inj 100 / 100 100 / 100 100 / 100 100 ML @ 200 mls/hr IV.SIG Q12H [facility] Rx#:[id number] Mycamine Inj 100 MG In NS Inj 100 / 100 100 / 100 100 ML @ 100 mls/hr IV.SIG Q24H [facility] Rx#:[id number] Flagyl 500 MG Inj 100 ML @ 100 200 / 200 200 / 200 200 / 200 mls/hr IV.SIG Q6H [facility] Rx#: [id number] Oral 200 / 200 960 / 960 Output: Urine 400 / 400 400 / 400 Emesis 800 / 800 Urine Amount (Catheter) 900 / 900 Indwelling Urethral Catheter 900 / 900 Chest Tube Drainage 100 / 100 20 / 20 #2 Left Mid-Axillary Chest 90 / 90 20 / 20 Left Mid-Axillary Chest 10 / 0 / 0 Other: Post Void Residual 0 # Voids 1 Date of Last Bowel Movement 09/03/18 09/03/18 - Urinary Catheter Management Indwelling Urethral Catheter Cath placed during this visit: no Straight Cath placed during this visit: no 1 Cath placed during this visit: no <Sofia Tong - Last Filed: 09/06/18 18:27> Assessment and Plan - Assessment (1) Acute kidney injury Code(s): N17.9 - Acute kidney failure, unspecified Status: Acute Plan: Acute kidney injury with a creatinine fo 2.94 and potassium level of 5 on day of consult No previous history of kidney disease Creatinine noted to increase on 08/24 and vancomycin through level was elevated at 46.4 Most likely acute 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 Urine negative for proteinuria Ct of abdomen with nonobstructing right renal calculi. The kidneys are otherwise unremarkable Recommend to avoid nephrotoxins. Will monitor urinary output and BMP Electrolytes and fluid balance stable Creatinine continues to improve at 1.3 today, will continue to monitor <Felecia Sofia - Last Filed: 09/04/18 15:18> - Assessment (1) Acute kidney injury Code(s): N17.9 - Acute kidney failure, unspecified Status: Acute Plan: Patient seen and examined, agree with above. Creatinine continue to improve, now 1.3. <Sofia Tong - Last Filed: 09/06/18 18:27>
[2018-09-04] MEDS ORDERED: *Labetalol HCl Inj 100 MG/20 ML Vial PERIprocedural Use ONLY IV.PUSH ONE (15:25)
[2018-09-04 15:32] LABS: Baso # (Auto) 0.1 th/mm3 (0.0-0.2); Baso % (Auto) 0.6 % (0.0-2.0); Eos # (Auto) 0.1 th/mm3 (0.0-0.4); Eos % (Auto) 0.3 % (0.0-4.0); Hematocrit 30.5 % (39.0-51.0); Hemoglobin 10.4 gm/dL (13.0-17.0); Lymph # (Auto) 1.6 th/mm3 (1.0-4.8); Lymph % (Auto) 7.5 % (9.0-44.0); Mean Corpuscular HGB Conc 34.2 % (32.0-36.0); Mean Corpuscular Hemoglobin 30.8 pg (27.0-34.0); Mean Platelet Volume 6.6 fL (7.0-11.0); Mono # (Auto) 0.4 th/mm3 (0.0-0.9); Neut # (Auto) 18.9 th/mm3 (1.8-7.7); Neut % (Auto) 89.6 % (16.0-70.0); Platelet Count 474 th/mm3 (150-450); Red Blood Count 3.39 mil/mm3 (4.50-5.90); Red Cell Distribution Width 14.4 % (11.6-17.2); White Blood Count 21.1 th/mm3 (4.0-11.0)
[2018-09-04] MEDS ORDERED: Naloxone Inj 0.4 MG/ML Vial IV.PUSH PRN (15:38)
[2018-09-04] MEDS ORDERED: HYDROmorphone PCA Inj 6 MG/30 ML PCA.VIAL PCA PRN (15:38)
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
[2018-09-04] MEDS: Enoxaparin Inj 30 MG/0.3 ML Syringe SQ SCH (20:27)
[2018-09-04] MEDS: Melatonin 5 MG Tablet PO SCH (21:02)
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
[2018-09-05] MEDS: Morphine Inj 4 MG/ML Vial IV.PUSH PRN ×5 (00:16→08:05)
[2018-09-05 06:22] LABS: Baso # (Auto) 0.1 th/mm3 (0.0-0.2); Baso % (Auto) 0.9 % (0.0-2.0); Eos # (Auto) 0.1 th/mm3 (0.0-0.4); Eos % (Auto) 0.7 % (0.0-4.0); Hematocrit 24.3 % (39.0-51.0); Hemoglobin 8.6 gm/dL (13.0-17.0); Lymph # (Auto) 2.8 th/mm3 (1.0-4.8); Lymph % (Auto) 19.3 % (9.0-44.0); Mean Corpuscular HGB Conc 35.5 % (32.0-36.0); Mean Corpuscular Hemoglobin 31.3 pg (27.0-34.0); Mean Corpuscular Volume 88.3 fL (80.0-100.0); Mean Platelet Volume 6.5 fL (7.0-11.0); Mono # (Auto) 1.6 th/mm3 (0.0-0.9); Mono % (Auto) 10.7 % (0.0-8.0); Neut # (Auto) 10.1 th/mm3 (1.8-7.7); Neut % (Auto) 68.4 % (16.0-70.0); Platelet Count 413 th/mm3 (150-450); Red Blood Count 2.75 mil/mm3 (4.50-5.90); Red Cell Distribution Width 14.7 % (11.6-17.2); White Blood Count 14.8 th/mm3 (4.0-11.0)
[2018-09-05 06:50] LABS: Calcium 7.9 mg/dL (8.5-10.1); Potassium 3.9 meq/L (3.5-5.1)
[2018-09-05] MEDS: Senna/Docusate Sodium 8.6/50 MG Tablet PO SCH ×2 (09:23→20:01)
[2018-09-05] MEDS: Sodium Chloride 0.9% 2 ML Flush BID IV.FLUSH SCH ×2 (09:28→20:03)
[2018-09-05] MEDS: Linezolid 600 MG Tablet PO SCH ×2 (09:28→20:01)
[2018-09-05] MEDS: Lactobacillus Acidophilus/L. Spores Tablet PO SCH ×3 (09:28→17:22)
[2018-09-05] MEDS: Enoxaparin Inj 30 MG/0.3 ML Syringe SQ SCH ×2 (09:28→20:03)
[2018-09-05] MEDS: Polyethylene Glycol 3350 17 GM Packet PO SCH (09:28)
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
[2018-09-05] MEDS: HYDROmorphone PF Inj 1 MG/ML Ampul IV.PUSH PRN ×5 (10:45→22:17)
[2018-09-05] MEDS: Ketorolac Inj 30 MG/ML (IVP) Vial IV.PUSH SCH ×3 (11:43→22:17)
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
--- NOTE | 2018-09-05 15:29 | P.PNNP ---
Subjective Interval history: Reporting increased pain. Chest tube to left chest wall. Creatinine has remained stable. <Felecia Sofia - Last Filed: 09/05/18 15:24> Physical Exam Vital signs: Vital Signs 09/04/18 15:30 09/04/18 15:45 09/04/18 16:00 Temperature Pulse Rate 88 84 79 Respiratory Rate 17 17 18 Blood Pressure 126/87 147/96 H 139/90 Pulse Oximetry 100 100 100 09/04/18 16:15 09/04/18 16:20 09/04/18 16:30 Temperature 97.9 F Pulse Rate 89 78 Respiratory Rate 18 18 Blood Pressure 154/93 H 136/81 Pulse Oximetry 100 99 100 09/04/18 17:15 09/04/18 18:00 09/04/18 19:00 Temperature 97.8 F Pulse Rate 76 88 90 Respiratory Rate 23 18 20 Blood Pressure 131/98 H Pulse Oximetry 99 99 99 09/04/18 19:39 09/04/18 20:00 09/04/18 21:00 Temperature 98.8 F Pulse Rate 93 H 94 H 106 H Respiratory Rate 25 H 24 24 Blood Pressure Pulse Oximetry 98 98 98 09/04/18 21:11 09/04/18 22:00 09/04/18 23:00 Temperature Pulse Rate 102 H 97 H 96 H Respiratory Rate 26 H 24 22 Blood Pressure 144/100 H Pulse Oximetry 98 98 99 09/04/18 23:28 09/05/18 00:00 09/05/18 01:00 Temperature 99.2 F Pulse Rate 95 H 90 Respiratory Rate 20 20 20 Blood Pressure Pulse Oximetry 98 99 09/05/18 01:11 09/05/18 02:00 09/05/18 02:06 Temperature Pulse Rate 92 H 91 H Respiratory Rate 24 31 H 24 Blood Pressure 151/97 H Pulse Oximetry 99 99 09/05/18 03:00 09/05/18 03:38 09/05/18 04:00 Temperature Pulse Rate 90 103 H Respiratory Rate 24 22 31 H Blood Pressure Pulse Oximetry 99 97 09/05/18 04:07 09/05/18 04:09 09/05/18 06:04 Temperature Pulse Rate 101 H Respiratory Rate 24 37 H 22 Blood Pressure 154/96 H Pulse Oximetry 97 09/05/18 07:00 09/05/18 07:35 09/05/18 07:51 Temperature Pulse Rate 88 95 H Respiratory Rate 17 18 22 Blood Pressure 157/103 H Pulse Oximetry 99 100 09/05/18 08:00 09/05/18 08:15 09/05/18 08:51 Temperature 97.7 F Pulse Rate 90 90 Respiratory Rate 20 16 22 Blood Pressure 151/98 H Pulse Oximetry 100 99 09/05/18 09:00 09/05/18 09:51 09/05/18 10:00 Temperature Pulse Rate 81 84 84 Respiratory Rate 20 19 21 Blood Pressure 153/101 H Pulse Oximetry 99 99 99 Intake & Output 09/04/18 09/05/18 09/05/18 18:59 06:59 18:59 Intake Total 3200 / 3200 1420 / 1420 750 / 750 Output Total 680 / 680 626 / 626 Balance 2520 / 2520 794 / 794 750 / 750 Weight 60.2 kg 62.1 kg Intake: IV 1200 / 1200 1300 / 1300 750 / 750 LR 1000 mL Inj 1,000 ML @ 100 1000 / 1000 1000 / 1000 550 / 550 mls/hr IV.CONT .Q10H [facility] Rx#: [id number] Maxipime Inj 1,000 MG In NS Inj 100 / 100 100 / 100 100 / 100 100 ML @ 200 mls/hr IV.SIG Q12H [facility] Rx#:[id number] Mycamine Inj 100 MG In NS Inj 100 / 100 100 ML @ 100 mls/hr IV.SIG Q24H [facility] Rx#:[id number] Flagyl 500 MG Inj 100 ML @ 100 200 / 200 100 / 100 mls/hr IV.SIG Q6H [facility] Rx#: [id number] Oral 120 / 120 Anesthesia Amount 1999 / 1999 Output: Estimated Blood Loss 300 / 300 Urine Amount (Catheter) 190 / 190 500 / 500 Indwelling Urethral Catheter 190 / 190 500 / 500 Chest Tube Drainage 190 / 190 126 / 126 #2 Left Mid-Axillary Chest 60 / 60 80 / 80 Left Mid-Axillary Chest 130 / 130 46 / 46 Other: Date of Last Bowel Movement 09/03/18 09/03/18 # Bowel Movements 0 Narrative: GENERAL: Alert and oriented. NAD SKIN: Warm and dry. ENT: No nasal bleeding or discharge. Mucous membranes pink and moist. Deviated septum noted. CARDIOVASCULAR: Regular rate and rhythm. RESPIRATORY: No accessory muscle use. 3 CT to left side. GASTROINTESTINAL: Abdomen soft, non-tender. Midline abdominal incision with dressing on. MUSCULOSKELETAL: Extremities without cyanosis, or edema. NEUROLOGICAL: Awake and alert. Normal speech - Urinary Catheter Management Indwelling Urethral Catheter Cath placed during this visit: yes, but has since been removed by the nurse Reason for continuing: Hourly intake/output Insertion date: 09/04/18 Removal date: 08/14/18 Removal time: 16:00 Straight Cath placed during this visit: no 1 Cath placed during this visit: yes, but has since been removed by the nurse Reason for continuing: Acute urinary retention Insertion date: 08/09/18 Insertion time: 19:00 Removal date: 08/09/18 Removal time: 06:00 <Felecia Sofia - Last Filed: 09/05/18 15:24> Vital signs: Vital Signs 09/04/18 21:00 09/04/18 21:11 09/04/18 22:00 Temperature Pulse Rate 106 H 102 H 97 H Respiratory Rate 24 26 H 24 Blood Pressure 144/100 H Pulse Oximetry 98 98 98 09/04/18 23:00 09/04/18 23:28 09/05/18 00:00 Temperature 99.2 F Pulse Rate 96 H 95 H Respiratory Rate 22 20 20 Blood Pressure Pulse Oximetry 99 98 09/05/18 01:00 09/05/18 01:11 09/05/18 02:00 Temperature Pulse Rate 90 92 H 91 H Respiratory Rate 20 24 31 H Blood Pressure 151/97 H Pulse Oximetry 99 99 99 09/05/18 02:06 09/05/18 03:00 09/05/18 03:38 Temperature Pulse Rate 90 Respiratory Rate 24 24 22 Blood Pressure Pulse Oximetry 99 09/05/18 04:00 09/05/18 04:07 09/05/18 04:09 Temperature Pulse Rate 103 H 101 H Respiratory Rate 31 H 24 37 H Blood Pressure 154/96 H Pulse Oximetry 97 97 09/05/18 06:04 09/05/18 07:00 09/05/18 07:35 Temperature Pulse Rate 88 Respiratory Rate 22 17 18 Blood Pressure Pulse Oximetry 99 09/05/18 07:51 09/05/18 08:00 09/05/18 08:15 Temperature 97.7 F Pulse Rate 95 H 90 Respiratory Rate 22 20 16 Blood Pressure 157/103 H Pulse Oximetry 100 100 09/05/18 08:51 09/05/18 09:00 09/05/18 09:51 Temperature Pulse Rate 90 81 84 Respiratory Rate 22 20 19 Blood Pressure 151/98 H 153/101 H Pulse Oximetry 99 99 99 09/05/18 10:00 09/05/18 10:51 09/05/18 11:00 Temperature Pulse Rate 84 95 H 90 Respiratory Rate 21 22 23 Blood Pressure 147/100 H Pulse Oximetry 99 98 99 09/05/18 11:51 09/05/18 12:00 09/05/18 12:51 Temperature Pulse Rate 98 H 94 H 96 H Respiratory Rate 20 21 20 Blood Pressure 155/101 H 151/99 H Pulse Oximetry 95 93 L 95 09/05/18 13:00 09/05/18 13:51 09/05/18 14:00 Temperature Pulse Rate 92 H 102 H 85 Respiratory Rate 18 20 17 Blood Pressure 138/92 H Pulse Oximetry 95 96 94 L 09/05/18 14:30 09/05/18 14:51 09/05/18 15:00 Temperature Pulse Rate 85 84 Respiratory Rate 18 14 15 Blood Pressure 128/85 Pulse Oximetry 96 96 09/05/18 15:51 09/05/18 16:00 09/05/18 20:00 Temperature 97.8 F 97.9 F Pulse Rate 88 85 92 H Respiratory Rate 16 14 16 Blood Pressure 153/96 H 144/105 H Pulse Oximetry 96 96 95 Intake & Output 09/05/18 09/05/18 09/06/18 06:59 18:59 06:59 Intake Total 1420 / 1420 950 / 950 1000 / 1000 Output Total 626 / 626 1000 / 1000 Balance 794 / 794 -50 / -50 1000 / 1000 Weight 62.1 kg Intake: IV 1300 / 1300 950 / 950 1000 / 1000 LR 1000 mL Inj 1,000 ML @ 100 1000 / 1000 550 / 550 mls/hr IV.CONT .Q10H [facility] Rx#: [id number] Maxipime Inj 1,000 MG In NS Inj 100 / 100 100 / 100 100 ML @ 200 mls/hr IV.SIG Q12H [facility] Rx#:[id number] Mycamine Inj 100 MG In NS Inj 100 / 100 100 ML @ 100 mls/hr IV.SIG Q24H [facility] Rx#:[id number] Flagyl 500 MG Inj 100 ML @ 100 200 / 200 200 / 200 mls/hr IV.SIG Q6H [facility] Rx#: [id number] Oral 120 / 120 Output: Urine Amount (Catheter) 500 / 500 900 / 900 Indwelling Urethral Catheter 500 / 500 900 / 900 Chest Tube Drainage 126 / 126 100 / 100 #2 Left Mid-Axillary Chest 80 / 80 90 / 90 Left Mid-Axillary Chest 46 / 46 10 Other: Date of Last Bowel Movement 09/03/18 - Urinary Catheter Management Indwelling Urethral Catheter Cath placed during this visit: no Straight Cath placed during this visit: no 1 Cath placed during this visit: no <Sofia Tong - Last Filed: 09/05/18 20:34> Assessment and Plan - Assessment (1) Acute kidney injury Code(s): N17.9 - Acute kidney failure, unspecified Status: Acute Plan: Acute kidney injury with a creatinine fo 2.94 and potassium level of 5 on day of consult No previous history of kidney disease Creatinine noted to increase on 08/24 and vancomycin through level was elevated at 46.4 Most likely acute 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 Urine negative for proteinuria Ct of abdomen with nonobstructing right renal calculi. The kidneys are otherwise unremarkable Recommend to avoid nephrotoxins. Continue antibiotics per ID recommendations. Electrolytes and fluid balance stable Creatinine stable at 1.38, will continue to monitor <Felecia Sofia - Last Filed: 09/05/18 15:24> - Assessment (1) Acute kidney injury Code(s): N17.9 - Acute kidney failure, unspecified Status: Acute Plan: Patient seen and examined, agree with above. Creatinine is stable, now 1.3. <Sofia Tong - Last Filed: 09/05/18 20:34>
[2018-09-05] MEDS: Melatonin 5 MG Tablet PO SCH (20:01)
[2018-09-05] MEDS: Simethicone 80 MG Chew Tablet PO PRN (20:01)
[2018-09-06] MEDS: HYDROmorphone PF Inj 1 MG/ML Ampul IV.PUSH PRN ×8 (00:53→22:45)
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
[2018-09-06] MEDS: Ketorolac Inj 30 MG/ML (IVP) Vial IV.PUSH SCH ×4 (05:50→22:46)
[2018-09-06 06:06] LABS: Baso # (Auto) 0.1 th/mm3 (0.0-0.2); Baso % (Auto) 1.2 % (0.0-2.0); Eos # (Auto) 0.1 th/mm3 (0.0-0.4); Eos % (Auto) 0.9 % (0.0-4.0); Hemoglobin 10.2 gm/dL (13.0-17.0); Lymph # (Auto) 1.9 th/mm3 (1.0-4.8); Lymph % (Auto) 15.2 % (9.0-44.0); Mean Corpuscular HGB Conc 34.1 % (32.0-36.0); Mean Corpuscular Hemoglobin 31.1 pg (27.0-34.0); Mean Corpuscular Volume 91.2 fL (80.0-100.0); Mean Platelet Volume 7.4 fL (7.0-11.0); Mono # (Auto) 0.9 th/mm3 (0.0-0.9); Mono % (Auto) 7.3 % (0.0-8.0); Neut # (Auto) 9.3 th/mm3 (1.8-7.7); Neut % (Auto) 75.4 % (16.0-70.0); Platelet Count 460 th/mm3 (150-450); Red Blood Count 3.29 mil/mm3 (4.50-5.90); Red Cell Distribution Width 14.5 % (11.6-17.2); White Blood Count 12.4 th/mm3 (4.0-11.0)
[2018-09-06 06:44] LABS: Calcium 8.2 mg/dL (8.5-10.1); Carbon Dioxide 29.1 meq/L (21.0-32.0); Potassium 4.2 meq/L (3.5-5.1)
[2018-09-06] MEDS: Enoxaparin Inj 30 MG/0.3 ML Syringe SQ SCH ×2 (08:02→22:08)
[2018-09-06] MEDS: Linezolid 600 MG Tablet PO SCH ×2 (08:02→22:08)
[2018-09-06] MEDS: Senna/Docusate Sodium 8.6/50 MG Tablet PO SCH ×2 (08:03→22:08)
[2018-09-06] MEDS: Lactobacillus Acidophilus/L. Spores Tablet PO SCH ×4 (08:03→17:51)
[2018-09-06] MEDS: Sodium Chloride 0.9% 2 ML Flush BID IV.FLUSH SCH ×2 (08:04→22:08)
[2018-09-06] MEDS: Polyethylene Glycol 3350 17 GM Packet PO SCH (08:04)
--- NOTE | 2018-09-06 10:40 | P.PNNP ---
Subjective Interval history: Patient is resting. Has left side chest discomfort where chest tubes are present. Denies any shortness of breath, nausea, or vomiting. <Felecia Sofia - Last Filed: 09/06/18 10:36> Physical Exam Vital signs: Vital Signs 09/05/18 10:51 09/05/18 11:00 09/05/18 11:51 Temperature Pulse Rate 95 H 90 98 H Respiratory Rate 22 23 20 Blood Pressure 147/100 H 155/101 H Pulse Oximetry 98 99 95 09/05/18 12:00 09/05/18 12:51 09/05/18 13:00 Temperature Pulse Rate 94 H 96 H 92 H Respiratory Rate 21 20 18 Blood Pressure 151/99 H Pulse Oximetry 93 L 95 95 09/05/18 13:51 09/05/18 14:00 09/05/18 14:30 Temperature Pulse Rate 102 H 85 Respiratory Rate 20 17 18 Blood Pressure 138/92 H Pulse Oximetry 96 94 L 09/05/18 14:51 09/05/18 15:00 09/05/18 15:51 Temperature Pulse Rate 85 84 88 Respiratory Rate 14 15 16 Blood Pressure 128/85 153/96 H Pulse Oximetry 96 96 96 09/05/18 16:00 09/05/18 20:00 09/06/18 00:00 Temperature 97.8 F 97.9 F 97.1 F L Pulse Rate 85 92 H 90 Respiratory Rate 14 16 16 Blood Pressure 144/105 H 169/108 H Pulse Oximetry 96 95 92 L 09/06/18 04:00 09/06/18 08:00 Temperature 97.7 F 97.8 F Pulse Rate 93 H 95 H Respiratory Rate 17 20 Blood Pressure 156/100 H 147/100 H Pulse Oximetry 94 L 94 L Intake & Output 09/05/18 09/06/18 09/06/18 18:59 06:59 18:59 Intake Total 950 / 950 1500 / 1500 200 / 200 Output Total 1000 / 1000 1220 / 1220 Balance -50 / -50 280 / 280 200 / 200 Weight 62.1 kg Intake: IV 950 / 950 1300 / 1300 200 / 200 LR 1000 mL Inj 1,000 ML @ 100 550 / 550 mls/hr IV.CONT .Q10H [facility] Rx#: [id number] Maxipime Inj 1,000 MG In NS Inj 100 / 100 100 / 100 100 / 100 100 ML @ 200 mls/hr IV.SIG Q12H [facility] Rx#:[id number] Mycamine Inj 100 MG In NS Inj 100 / 100 100 ML @ 100 mls/hr IV.SIG Q24H [facility] Rx#:[id number] Flagyl 500 MG Inj 100 ML @ 100 200 / 200 200 / 200 100 / 100 mls/hr IV.SIG Q6H [facility] Rx#: [id number] Oral 200 / 200 Output: Urine 400 / 400 Emesis 800 / 800 Urine Amount (Catheter) 900 / 900 Indwelling Urethral Catheter 900 / 900 Chest Tube Drainage 100 / 100 20 / 20 #2 Left Mid-Axillary Chest 90 / 90 20 / 20 Left Mid-Axillary Chest 10 / 10 0 / 0 Other: Date of Last Bowel Movement 09/03/18 09/03/18 Narrative: GENERAL: Adult well-nourished, well developed male lying in bed in no acute distress. SKIN: Warm and dry. ENT: Mucous membranes pink and moist. Deviated septum noted. CARDIOVASCULAR: Regular rate and rhythm. RESPIRATORY: No accessory muscle use. Lungs clear to auscultation bilaterally. LEFT CT X 2 to suction. GASTROINTESTINAL: Abdomen soft, mild tenderness to palpation. Midline abdominal incision with dressing on. MUSCULOSKELETAL: Extremities without cyanosis, or edema. NEUROLOGICAL: Awake and alert. Normal speech, pleasant. - Urinary Catheter Management Indwelling Urethral Catheter Cath placed during this visit: yes, but has since been removed by the nurse Reason for continuing: Hourly intake/output Insertion date: 08/09/18 Removal date: 09/06/18 Removal time: 09:37 Straight Cath placed during this visit: no 1 Cath placed during this visit: yes, but has since been removed by the nurse Reason for continuing: Acute urinary retention Insertion date: 08/09/18 Insertion time: 19:00 Removal date: 08/09/18 Removal time: 06:00 <Felecia Sofia - Last Filed: 09/06/18 10:36> Vital signs: Vital Signs 09/06/18 20:00 09/06/18 22:44 09/07/18 00:00 Temperature 97.8 F 98.4 F Pulse Rate 97 H 83 Respiratory Rate 18 18 Blood Pressure 148/91 H 160/94 H Pulse Oximetry 96 96 09/07/18 01:59 09/07/18 03:44 09/07/18 08:00 Temperature 98.2 F Pulse Rate 84 Respiratory Rate 20 18 19 Blood Pressure 160/99 H Pulse Oximetry 98 09/07/18 12:00 09/07/18 16:00 09/07/18 16:19 Temperature 97.8 F 98.1 F Pulse Rate 91 H 90 Respiratory Rate 18 18 18 Blood Pressure 163/107 H 164/107 H Pulse Oximetry 96 96 Intake & Output 09/06/18 09/07/18 09/07/18 18:59 06:59 18:59 Intake Total 1360 / 1360 420 / 420 500 / 500 Output Total 450 / 450 200 / 200 540 / 540 Balance 910 / 910 220 / 220 -40 / -40 Weight 59.9 kg Intake: IV 400 / 400 300 / 300 500 / 500 Ofirmev Inj 1,000 mg In 100 ml 100 / 100 @ 400 mls/hr IV.SIG Q6H [facility] Rx# :[id number] Maxipime Inj 1,000 MG In NS Inj 100 / 100 100 / 100 100 / 100 100 ML @ 200 mls/hr IV.SIG Q12H [facility] Rx#:[id number] Mycamine Inj 100 MG In NS Inj 100 / 100 100 / 100 100 ML @ 100 mls/hr IV.SIG Q24H [facility] Rx#:[id number] Flagyl 500 MG Inj 100 ML @ 100 200 / 200 200 / 200 200 / 200 mls/hr IV.SIG Q6H [facility] Rx#: [id number] Oral 960 / 960 120 / 120 Output: Urine 400 / 400 200 / 200 Chest Tube Drainage 50 / 50 540 / 540 #2 Left Mid-Axillary Chest 25 / 25 260 / 260 Left Mid-Axillary Chest 25 / 25 280 / 280 Other: Post Void Residual 0 # Voids 1 - Urinary Catheter Management Indwelling Urethral Catheter Cath placed during this visit: no Straight Cath placed during this visit: no 1 Cath placed during this visit: no <Sofia Tong - Last Filed: 09/07/18 18:41> Assessment and Plan - Assessment (1) Acute kidney injury Code(s): N17.9 - Acute kidney failure, unspecified Status: Acute Plan: Acute kidney injury with a creatinine fo 2.94 and potassium level of 5 on day of consult. Creatinine noted to increase on 08/24 and vancomycin through level was elevated at 46.4 Most likely acute 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 Ct of abdomen with nonobstructing right renal calculi. The kidneys are otherwise unremarkable Recommend to avoid nephrotoxins, Continue antibiotics per ID recommendations. Electrolytes and fluid balance stable, Creatinine stable at 1.08, Nephrology will sign off and see PRN only. <Felecia Sofia - Last Filed: 09/06/18 10:36> - Assessment (1) Acute kidney injury Code(s): N17.9 - Acute kidney failure, unspecified Status: Acute Plan: Patient seen and examined, agree with above. Creatinine is improving, 1.08 now. Will sign off from Nephrology, call again if needed. <Sofia Tong - Last Filed: 09/07/18 18:41>
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
[2018-09-06] MEDS: Melatonin 5 MG Tablet PO SCH (22:08)
[2018-09-07] MEDS: HYDROmorphone PF Inj 1 MG/ML Ampul IV.PUSH PRN ×7 (02:57→23:44)
[2018-09-07 04:31] LABS: Baso # (Auto) 0.1 th/mm3 (0.0-0.2); Eos # (Auto) 0.4 th/mm3 (0.0-0.4); Eos % (Auto) 3.7 % (0.0-4.0); Hematocrit 26.6 % (39.0-51.0); Hemoglobin 9.2 gm/dL (13.0-17.0); Lymph # (Auto) 1.6 th/mm3 (1.0-4.8); Lymph % (Auto) 13.5 % (9.0-44.0); Mean Corpuscular HGB Conc 34.6 % (32.0-36.0); Mean Corpuscular Hemoglobin 30.4 pg (27.0-34.0); Mean Corpuscular Volume 87.7 fL (80.0-100.0); Mean Platelet Volume 7.1 fL (7.0-11.0); Mono # (Auto) 1.1 th/mm3 (0.0-0.9); Neut # (Auto) 8.6 th/mm3 (1.8-7.7); Neut % (Auto) 72.8 % (16.0-70.0); Platelet Count 471 th/mm3 (150-450); Red Blood Count 3.03 mil/mm3 (4.50-5.90); Red Cell Distribution Width 14.3 % (11.6-17.2); White Blood Count 11.8 th/mm3 (4.0-11.0)
[2018-09-07 05:02] LABS: Carbon Dioxide 30.6 meq/L (21.0-32.0); Potassium 4.3 meq/L (3.5-5.1)
[2018-09-07] MEDS: Ketorolac Inj 30 MG/ML (IVP) Vial IV.PUSH SCH (06:00)
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
[2018-09-07] MEDS: Polyethylene Glycol 3350 17 GM Packet PO SCH (09:34)
[2018-09-07] MEDS: Lactobacillus Acidophilus/L. Spores Tablet PO SCH ×3 (09:35→17:45)
[2018-09-07] MEDS: Senna/Docusate Sodium 8.6/50 MG Tablet PO SCH ×2 (09:35→21:42)
[2018-09-07] MEDS: Enoxaparin Inj 30 MG/0.3 ML Syringe SQ SCH ×2 (09:35→21:40)
[2018-09-07] MEDS: Linezolid 600 MG Tablet PO SCH ×2 (09:35→21:42)
[2018-09-07] MEDS: Sodium Chloride 0.9% 2 ML Flush BID IV.FLUSH SCH ×2 (09:36→21:43)
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
[2018-09-07] MEDS ORDERED: Bisacodyl 10 MG Supp RECTAL ONE (14:15)
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
[2018-09-07] MEDS: Melatonin 5 MG Tablet PO SCH (21:43)
[2018-09-08] MEDS: HYDROmorphone PF Inj 1 MG/ML Ampul IV.PUSH PRN ×5 (03:33→20:37)
[2018-09-08] MEDS: Enoxaparin Inj 30 MG/0.3 ML Syringe SQ SCH ×3 (08:09→22:09)
[2018-09-08] MEDS: Sodium Chloride 0.9% 2 ML Flush BID IV.FLUSH SCH ×3 (08:10→22:10)
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
[2018-09-08] MEDS: Polyethylene Glycol 3350 17 GM Packet PO SCH (08:22)
[2018-09-08] MEDS: Senna/Docusate Sodium 8.6/50 MG Tablet PO SCH ×2 (08:23→20:06)
[2018-09-08] MEDS: Linezolid 600 MG Tablet PO SCH ×3 (08:23→22:10)
[2018-09-08] MEDS: Lactobacillus Acidophilus/L. Spores Tablet PO SCH ×3 (08:23→17:52)
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
[2018-09-08] MEDS: Melatonin 5 MG Tablet PO SCH ×2 (19:36→22:09)
[2018-09-09] MEDS: HYDROmorphone PF Inj 1 MG/ML Ampul IV.PUSH PRN ×7 (00:42→23:16)
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
[2018-09-09] MEDS: Enoxaparin Inj 30 MG/0.3 ML Syringe SQ SCH ×2 (08:25→20:13)
[2018-09-09] MEDS: Lactobacillus Acidophilus/L. Spores Tablet PO SCH ×5 (08:25→18:00)
[2018-09-09] MEDS: Senna/Docusate Sodium 8.6/50 MG Tablet PO SCH ×2 (08:26→20:13)
[2018-09-09] MEDS: Linezolid 600 MG Tablet PO SCH ×2 (08:26→20:13)
[2018-09-09] MEDS: Polyethylene Glycol 3350 17 GM Packet PO SCH (08:27)
[2018-09-09] MEDS: Sodium Chloride 0.9% 2 ML Flush BID IV.FLUSH SCH ×2 (08:27→20:12)
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
[2018-09-09] MEDS: Melatonin 5 MG Tablet PO SCH (20:13)
[2018-09-10] MEDS: HYDROmorphone PF Inj 1 MG/ML Ampul IV.PUSH PRN ×6 (02:30→19:47)
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
[2018-09-10] MEDS: Megestrol Acetate Liq 400 MG/10 ML UDC PO SCH (08:25)
[2018-09-10] MEDS: Lactobacillus Acidophilus/L. Spores Tablet PO SCH ×3 (08:25→18:27)
[2018-09-10] MEDS: Senna/Docusate Sodium 8.6/50 MG Tablet PO SCH ×2 (08:25→22:08)
[2018-09-10] MEDS: Enoxaparin Inj 30 MG/0.3 ML Syringe SQ SCH ×2 (08:25→22:08)
[2018-09-10] MEDS: Linezolid 600 MG Tablet PO SCH ×2 (08:25→22:08)
[2018-09-10] MEDS: Sodium Chloride 0.9% 2 ML Flush BID IV.FLUSH SCH ×2 (08:26→22:08)
[2018-09-10] MEDS: Melatonin 5 MG Tablet PO SCH (22:08)
[2018-09-11] MEDS: HYDROmorphone PF Inj 1 MG/ML Ampul IV.PUSH PRN ×4 (02:08→23:21)
[2018-09-11 06:14] LABS: Baso # (Auto) 0.1 th/mm3 (0.0-0.2); Baso % (Auto) 1.5 % (0.0-2.0); Eos # (Auto) 0.5 th/mm3 (0.0-0.4); Eos % (Auto) 5.2 % (0.0-4.0); Hematocrit 24.5 % (39.0-51.0); Hemoglobin 8.6 gm/dL (13.0-17.0); Lymph % (Auto) 23.2 % (9.0-44.0); Mean Corpuscular HGB Conc 35.1 % (32.0-36.0); Mean Corpuscular Volume 91.1 fL (80.0-100.0); Mean Platelet Volume 7.5 fL (7.0-11.0); Mono % (Auto) 11.9 % (0.0-8.0); Neut # (Auto) 5.1 th/mm3 (1.8-7.7); Neut % (Auto) 58.2 % (16.0-70.0); Platelet Count 470 th/mm3 (150-450); Red Blood Count 2.69 mil/mm3 (4.50-5.90); Red Cell Distribution Width 14.4 % (11.6-17.2); White Blood Count 8.8 th/mm3 (4.0-11.0)
[2018-09-11 06:38] LABS: Calcium 8.1 mg/dL (8.5-10.1); Carbon Dioxide 30.7 meq/L (21.0-32.0)
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
[2018-09-11] MEDS: Megestrol Acetate Liq 400 MG/10 ML UDC PO SCH ×2 (09:07→09:10)
[2018-09-11] MEDS: Senna/Docusate Sodium 8.6/50 MG Tablet PO SCH ×2 (09:07→20:11)
[2018-09-11] MEDS: Enoxaparin Inj 30 MG/0.3 ML Syringe SQ SCH ×2 (09:07→20:11)
[2018-09-11] MEDS: Linezolid 600 MG Tablet PO SCH ×2 (09:07→20:11)
[2018-09-11] MEDS: Lactobacillus Acidophilus/L. Spores Tablet PO SCH ×3 (09:08→18:10)
[2018-09-11] MEDS: Sodium Chloride 0.9% 2 ML Flush BID IV.FLUSH SCH ×2 (09:08→20:11)
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
--- NOTE | 2018-09-11 13:48 | US ---
EXAM DATE: 09/11/2018 1:32 PM EST AGE/SEX: 89 years / Male INDICATIONS: Right pleural effusion. CLINICAL DATA: This is the patient's initial encounter. Patient reports that signs and symptoms have been present for 1 month and indicates a pain score of 2/10. MEDICAL/SURGICAL HISTORY: . MRSA. None. COMPARISON: [facility] – [place], CT CHEST W/O CONTRAST, 08/31/2018. . MEASUREMENTS: Skin To Parietal Pleura:__1.3 cm Skin To Max Safe Depth:__3.0 cm Estimated Fluid Volume:__203.26 cc Fluid Composition:__complex FINDINGS: Pleural effusion as above. CONCLUSION: 1. Complex loculated fluid on the left. Electronically signed by: Byron Vogt MD Board Certified Radiologist 09/11/2018 1:47 PM EST
[2018-09-11] MEDS: Melatonin 5 MG Tablet PO SCH (20:11)
[2018-09-12] MEDS: HYDROmorphone PF Inj 1 MG/ML Ampul IV.PUSH PRN ×4 (03:00→20:54)
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
[2018-09-12] MEDS: Lactobacillus Acidophilus/L. Spores Tablet PO SCH ×3 (09:03→18:03)
[2018-09-12] MEDS: Senna/Docusate Sodium 8.6/50 MG Tablet PO SCH ×2 (09:03→20:12)
[2018-09-12] MEDS: Linezolid 600 MG Tablet PO SCH ×2 (09:03→20:12)
[2018-09-12] MEDS: Enoxaparin Inj 30 MG/0.3 ML Syringe SQ SCH ×2 (09:04→20:12)
[2018-09-12] MEDS: Megestrol Acetate Liq 400 MG/10 ML UDC PO SCH (09:04)
[2018-09-12] MEDS: Sodium Chloride 0.9% 2 ML Flush BID IV.FLUSH SCH ×2 (09:05→20:12)
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
[2018-09-12] MEDS ORDERED: fentaNYL Citrate Inj 250 MCG/5 ML Ampul ONE (15:01)
--- NOTE | 2018-09-12 15:44 | P.RAD ---
Post CT Procedure Prog Note - Procedure Information Procedure Date: 09/12/18 Supervising Radiologist: JEREMÍAS Rivero Assisting Physician: Garth Jackson Estimated blood loss (mL): 1 Anesthesia: Local, Conscious Sedation - Plan of Activity Patient to Unit: Nursing Unit Patient condition: Good See PACS Report for procedural detail/treatment.
--- NOTE | 2018-09-12 16:24 | CT ---
EXAM DATE: 09/12/2018 3:39 PM EST AGE/SEX: 89 years / Male INDICATIONS: Right lung effusion CLINICAL DATA: This is the patient's initial encounter. Patient reports that signs and symptoms have been present for 1 day and indicates a pain score of 0/10. MEDICAL/SURGICAL HISTORY: None. None. SEDATION TIME (min): 30 min MEDICATION(S): 2mg midazolam (Versed) IV 150 mcg fentanyl (Sublimaze) IV DEVICE(S): . [place] 12 fr . . COMPARISON: [facility] – [place], CHEST 1V SINGLE AP, 09/12/2018. . PROCEDURE : CT guided right chest tube placement. The risks, benefits and alternatives to the procedure were explained and verbal and written consent w as obtained. The site was prepped in sterile fashion. Full sterile technique was used, including ca p, mask, sterile gloves and gown and a large sterile sheet. Hand hygiene and 2% chlorhexidine and/or betadine/alcohol prep was utilized per protocol for cutaneous antisepsis. The skin and subcutaneous tissues were infiltrated with local anesthetic solution. Using automated exposure control and adjus tment of the mA and/or kV according to patient size, radiation dose was kept as low as reasonably ach ievable to obtain optimal diagnostic quality images. DICOM format image data is available electronic ally for review and comparison. With CT guidance the chest was punctured and the prescribed catheter was placed in the right lung bas e of the lung. Wall suction was applied. Post procedure images demonstrate satisfactory position of the tube. The catheter was sutured in place and a Percu-Stay was applied. The patient tolerated the procedure well and there were no complications. The patient was sent to pos t anesthesia recovery in stable condition. FINDINGS: Immediate flow of 40 cc of purulent fluid from the right pleural space. CONCLUSION: 1. Uncomplicated chest tube placement as above. 2. There is purulent drainage consistent with empyema. Electronically signed by: Garth Jackson MD Board Certified Radiologist 09/12/2018 4:23 PM ES Kathy
[2018-09-12] MEDS: Melatonin 5 MG Tablet PO SCH (20:12)
[2018-09-12] MEDS: Ketorolac Inj 30 MG/ML (IVP) Vial IV.PUSH PRN (23:03)
[2018-09-13] MEDS: HYDROmorphone PF Inj 1 MG/ML Ampul IV.PUSH PRN ×6 (00:32→21:01)
[2018-09-13] MEDS: Ketorolac Inj 30 MG/ML (IVP) Vial IV.PUSH PRN ×2 (05:18→16:05)
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
[2018-09-13] MEDS: Enoxaparin Inj 30 MG/0.3 ML Syringe SQ SCH ×2 (08:54→20:24)
[2018-09-13] MEDS: Linezolid 600 MG Tablet PO SCH ×2 (08:55→20:24)
[2018-09-13] MEDS: Lactobacillus Acidophilus/L. Spores Tablet PO SCH ×3 (08:55→17:08)
[2018-09-13] MEDS: Megestrol Acetate Liq 400 MG/10 ML UDC PO SCH (08:55)
[2018-09-13] MEDS: Senna/Docusate Sodium 8.6/50 MG Tablet PO SCH ×2 (08:55→20:24)
[2018-09-13] MEDS: Sodium Chloride 0.9% 2 ML Flush BID IV.FLUSH SCH ×2 (08:56→20:24)
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
[2018-09-13] MEDS: Melatonin 5 MG Tablet PO SCH (20:25)
[2018-09-14] MEDS: HYDROmorphone PF Inj 1 MG/ML Ampul IV.PUSH PRN ×3 (00:55→09:13)
[2018-09-14 05:18] LABS: Baso # (Auto) 0.2 th/mm3 (0.0-0.2); Baso % (Auto) 2.9 % (0.0-2.0); Eos # (Auto) 0.2 th/mm3 (0.0-0.4); Eos % (Auto) 3.1 % (0.0-4.0); Hematocrit 28.9 % (39.0-51.0); Hemoglobin 9.7 gm/dL (13.0-17.0); Lymph # (Auto) 2.5 th/mm3 (1.0-4.8); Lymph % (Auto) 32.1 % (9.0-44.0); Mean Corpuscular HGB Conc 33.7 % (32.0-36.0); Mean Corpuscular Hemoglobin 31.7 pg (27.0-34.0); Mean Corpuscular Volume 94.1 fL (80.0-100.0); Mean Platelet Volume 7.3 fL (7.0-11.0); Mono # (Auto) 0.7 th/mm3 (0.0-0.9); Mono % (Auto) 8.4 % (0.0-8.0); Neut # (Auto) 4.2 th/mm3 (1.8-7.7); Neut % (Auto) 53.5 % (16.0-70.0); Platelet Count 504 th/mm3 (150-450); Red Blood Count 3.07 mil/mm3 (4.50-5.90); Red Cell Distribution Width 14.7 % (11.6-17.2); White Blood Count 7.8 th/mm3 (4.0-11.0)
[2018-09-14 05:39] LABS: Calcium 8.8 mg/dL (8.5-10.1); Carbon Dioxide 31.1 meq/L (21.0-32.0); Potassium 4.8 meq/L (3.5-5.1)
[2018-09-14] MEDS: Ketorolac Inj 30 MG/ML (IVP) Vial IV.PUSH PRN ×2 (06:43→16:47)
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
[2018-09-14] MEDS: Senna/Docusate Sodium 8.6/50 MG Tablet PO SCH ×2 (09:12→20:35)
[2018-09-14] MEDS: Megestrol Acetate Liq 400 MG/10 ML UDC PO SCH (09:12)
[2018-09-14] MEDS: Enoxaparin Inj 30 MG/0.3 ML Syringe SQ SCH ×2 (09:12→20:35)
[2018-09-14] MEDS: Lactobacillus Acidophilus/L. Spores Tablet PO SCH ×3 (09:12→18:30)
[2018-09-14] MEDS: Linezolid 600 MG Tablet PO SCH ×2 (09:12→20:35)
[2018-09-14] MEDS: Sodium Chloride 0.9% 2 ML Flush BID IV.FLUSH SCH ×2 (09:13→20:36)
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
[2018-09-14] MEDS: Melatonin 5 MG Tablet PO SCH (20:36)
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
[2018-09-15] MEDS: Linezolid 600 MG Tablet PO SCH (08:51)
[2018-09-15] MEDS: Sodium Chloride 0.9% 2 ML Flush BID IV.FLUSH SCH ×2 (08:51→21:12)
[2018-09-15] MEDS: Lactobacillus Acidophilus/L. Spores Tablet PO SCH ×4 (08:51→17:56)
[2018-09-15] MEDS: Enoxaparin Inj 30 MG/0.3 ML Syringe SQ SCH ×2 (08:51→21:12)
[2018-09-15] MEDS: Megestrol Acetate Liq 400 MG/10 ML UDC PO SCH (08:51)
[2018-09-15] MEDS: Senna/Docusate Sodium 8.6/50 MG Tablet PO SCH ×2 (08:51→21:11)
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
[2018-09-15] MEDS ORDERED: Heparin Central Flush 100 UNIT/ML 5 ML Vial IV.FLUSH PRN (14:09)
[2018-09-15] MEDS: Gabapentin 300 MG Capsule PO SCH ×2 (15:38→17:56)
[2018-09-15] MEDS: Melatonin 5 MG Tablet PO SCH (21:13)
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
[2018-09-16] MEDS: Heparin Central Flush 100 UNIT/ML 5 ML Vial IV.FLUSH SCH (09:14)
[2018-09-16] MEDS: Senna/Docusate Sodium 8.6/50 MG Tablet PO SCH ×2 (09:14→20:25)
[2018-09-16] MEDS: Gabapentin 300 MG Capsule PO SCH ×3 (09:14→17:25)
[2018-09-16] MEDS: Lactobacillus Acidophilus/L. Spores Tablet PO SCH ×3 (09:14→17:25)
[2018-09-16] MEDS: Enoxaparin Inj 30 MG/0.3 ML Syringe SQ SCH ×2 (09:14→20:26)
[2018-09-16] MEDS: Megestrol Acetate Liq 400 MG/10 ML UDC PO SCH (09:15)
[2018-09-16] MEDS: Sodium Chloride 0.9% 2 ML Flush BID IV.FLUSH SCH ×2 (09:15→20:26)
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
[2018-09-16] MEDS: Melatonin 5 MG Tablet PO SCH (20:26)
[2018-09-17] MEDS: Lactobacillus Acidophilus/L. Spores Tablet PO SCH ×3 (08:18→18:11)
[2018-09-17] MEDS: Megestrol Acetate Liq 400 MG/10 ML UDC PO SCH (08:18)
[2018-09-17] MEDS: Heparin Central Flush 100 UNIT/ML 5 ML Vial IV.FLUSH SCH (08:18)
[2018-09-17] MEDS: Sodium Chloride 0.9% 2 ML Flush BID IV.FLUSH SCH ×2 (08:18→20:34)
[2018-09-17] MEDS: Senna/Docusate Sodium 8.6/50 MG Tablet PO SCH ×2 (08:18→20:33)
[2018-09-17] MEDS: Enoxaparin Inj 30 MG/0.3 ML Syringe SQ SCH ×2 (08:18→20:34)
[2018-09-17] MEDS: Gabapentin 300 MG Capsule PO SCH ×3 (08:18→18:11)
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
[2018-09-17] MEDS: Melatonin 5 MG Tablet PO SCH (20:33)
[2018-09-18] MEDS: Senna/Docusate Sodium 8.6/50 MG Tablet PO SCH ×2 (08:19→20:59)
[2018-09-18] MEDS: Gabapentin 300 MG Capsule PO SCH ×3 (08:19→17:01)
[2018-09-18] MEDS: Heparin Central Flush 100 UNIT/ML 5 ML Vial IV.FLUSH SCH (08:20)
[2018-09-18] MEDS: Lactobacillus Acidophilus/L. Spores Tablet PO SCH ×3 (08:20→17:01)
[2018-09-18] MEDS: Enoxaparin Inj 30 MG/0.3 ML Syringe SQ SCH ×2 (08:20→20:59)
[2018-09-18] MEDS: Sodium Chloride 0.9% 2 ML Flush BID IV.FLUSH SCH ×2 (08:21→20:59)
[2018-09-18] MEDS: Megestrol Acetate Liq 400 MG/10 ML UDC PO SCH ×2 (08:21→08:25)
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
[2018-09-18] MEDS: Melatonin 5 MG Tablet PO SCH (21:00)
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
[2018-09-19] MEDS: Enoxaparin Inj 30 MG/0.3 ML Syringe SQ SCH ×2 (10:27→21:39)
[2018-09-19] MEDS: Gabapentin 300 MG Capsule PO SCH ×3 (10:28→18:41)
[2018-09-19] MEDS: Lactobacillus Acidophilus/L. Spores Tablet PO SCH ×3 (10:28→18:41)
[2018-09-19] MEDS: Heparin Central Flush 100 UNIT/ML 5 ML Vial IV.FLUSH SCH (10:29)
[2018-09-19] MEDS: Megestrol Acetate Liq 400 MG/10 ML UDC PO SCH (10:29)
[2018-09-19] MEDS: Sodium Chloride 0.9% 2 ML Flush BID IV.FLUSH SCH ×2 (10:29→21:41)
[2018-09-19] MEDS: Senna/Docusate Sodium 8.6/50 MG Tablet PO SCH ×2 (10:29→21:41)
[2018-09-19] MEDS: Melatonin 5 MG Tablet PO SCH (21:39)
[2018-09-20] MEDS: Heparin Central Flush 100 UNIT/ML 5 ML Vial IV.FLUSH SCH (08:30)
[2018-09-20] MEDS: Lactobacillus Acidophilus/L. Spores Tablet PO SCH ×2 (08:30→12:43)
[2018-09-20] MEDS: Senna/Docusate Sodium 8.6/50 MG Tablet PO SCH (08:30)
[2018-09-20] MEDS: Gabapentin 300 MG Capsule PO SCH ×2 (08:30→12:43)
[2018-09-20] MEDS: Sodium Chloride 0.9% 2 ML Flush BID IV.FLUSH SCH (08:30)
[2018-09-20] MEDS: Enoxaparin Inj 30 MG/0.3 ML Syringe SQ SCH (08:31)
[2018-09-20] MEDS: Megestrol Acetate Liq 400 MG/10 ML UDC PO SCH (08:32)
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
[2018-09-20 12:43] VITALS: BP 140/94; PULSE 109; RESP 20; TEMP 97.9; O2SAT 98
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
--- NOTE | 2018-09-20 13:42 | P.DCO ---
Post Hospital Infusion Therapy - Infusion Therapy Location of Infusion Therapy: Home Health Care IV Infusion Order - Patient Information Patient Weight: 58.3 kg - Diagnosis (1) Empyema, right Code(s): J86.9 - Pyothorax without fistula - Administer Medication Micafungin Dose: 150 mg IV Directions: q 24 hours Start Treatment: 09/20/18 Stop Treatment: 10/15/18 - Additional Information Venous Access: PICC Line Additional Instructions: [x] Peripheral flush and dressing changes per protocol [x] Implanted port and central liner checker: * Implanted port: 10 ml Normal Saline followed by 5 ml Heparin 100 units/ml Heparin flush after each use and monthly to maintain. [] May leave port accessed during therapy. [] May leave peripheral site accessed for duration of therapy. [x] If patient has SOB or respiratory distress, check oxygen saturation. If less than 90% or clinical signs of respiratory distress, administer oxygen at 2 L/min. via nasal cannula and notify physician. [x] Anaphylaxis/Reaction orders: * Stop infusion. * Keep IV line open with saline flush. * Notify physician. * Monitor vital signs every 15 minutes until symptoms resolve. * Check Oxygen saturation; Oxygen at 2 L/min. via nasal cannula if less than 90% or clinical signs of respiratory distress. * Administer diphenhydramine (Benadryl) 25 mg IV STAT, (unless patient has received as pre-med). May repeat once, if necessary. * Solu-Cortef 250 mg IVP over 30-60 seconds, use 100 mg vials for each dissolution. * Epinephrine (1mg/1 ml) 0.3 mg subcutaneously or IVP now with any signs of respiratory distress. * Check with physician for new additional pre-med orders if patient is re- challenged or re-treated. [x] May remove PICC line when treatment complete, after confirming with Physician. [x] If the patient is admitted to the hospital, the ED, or transferred via [facility] , complete transfer form including medication reconciliation order sheet. Weekly Labs: CBC w/diff, CMP - Case Management Consult Case Management Consult-IVF: Yes - Patient Information Allergies No Known Allergies Allergy (Verified 08/06/18 12:23)
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
== END 2018-09-20 17:48 | disposition home or self-care (01) ==
LOC: NEPI 05:57 → NEDA 06:45 → EDBD 07:24 → N03 08:48 → HIMC 08-14 20:16 → N07 08-18 11:12 → N03 09-04 15:46 → N07 09-05 17:02
PROVIDERS: ADMIT Surgery; ATTEND Surgery
PROC: THOCTMY (2018-09-04 12:24)